=== PATIENT | male | born 1940 | race Caucasian/White ===

== ENCOUNTER 2020-01-03 09:49 | Outpatient (CLI) | payer OTHER, MEDICARE, SELFPAY ==
[2020-01-03 13:08] LABS: Basophils # 0.1 10^3/uL (0.0-0.1); Basophils % 0.5 %; Eosinophils # 0.4 10^3/uL (0.0-0.8); Eosinophils % 4.2 %; Hematocrit 43.5 % (42.0-52.0); Hemoglobin 14.6 g/dL (11.7-16.6); Lymphocytes # 4.1 10^3/uL (0.8-4.8); Lymphocytes % 40.4 %; Mean Corpuscular HGB Conc 33.6 g/dL (30.0-36.0); Mean Corpuscular Hemoglobin 32.4 pg (28.0-34.0); Mean Corpuscular Volume 96.5 fL (80-94); Mean Platelet Volume 14.3 fL (7.4-10.4); Monocytes # 0.9 10^3/uL (0.2-0.9); Monocytes % 9.2 %; Neutrophils # 4.6 10^3/uL (1.8-7.7); Neutrophils % 45.4 %; Nucleated Red Blood Cells % 0 %; Platelet Count 68 10^3/cmm (130-400); Red Blood Count 4.51 10^6/uL (4.1-5.3); Red Cell Distribution Width 12.5 % (12.1-15.1)
[2020-01-03 13:30] LABS: LAB Peripheral Smear Sent for Review
[2020-01-03 13:40] LABS: Alanine Aminotransferase 18 U/L (0-41); Albumin Level 3.7 g/dL (3.5-5.2); Alkaline Phosphatase 119 IU/L (40-130); Anion Gap 17.6 (5-19); Aspartate Amino Transferase 19 U/L (0-40); Blood Urea Nitrogen 22 mg/dL (8-23); Calcium 9.5 mg/dL (8.5-10.5); Carbon Dioxide 23 mmol/L (22-29); Chloride 103 mmol/L (98-107); Globulin 3.4 g/dL (1.3-4.6); Glucose 312 mg/dL (65-115); Lactate Dehydrogenase 143 U/L (135-225); Potassium 4.6 mmol/L (3.5-5.1); Sodium 139 mmol/L (136-145); Total Bilirubin 0.2 mg/dL (0.15-1.2); Total Protein 7.1 g/dL (6.6-8.7)
[2020-01-03 14:17] LABS: Erythrocyte Sedimentation Rate 16 mm/hr (0-10)
--- NOTE | 2020-01-03 16:18 | ONC CON_ITS ---
Dr. Dixon New Patient Note Patient: Sumit Abel Unit #: [id number]: 1940 Dicatated By: Robin Dixon M.D.Date of Visit: Jan 03, 2020 Onc MED New Patient/Consult Referring Physician: Chief Complaint: Lymphoma/autoimmunue thrombocytopenia. History of Present Illness: This is an 79 year-old man with stage IV low-grade non-Hodgkin's lymphoma, initially diagnosed in 1998. I did not receive complete records regarding the specific histologic subtype of the lymphoma. 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 The lymphoma has been in clinical remission following chemotherapy, though he continued to have problems with the thrombocytopenia, which was resistant to standard therapies and to splenectomy. Eventually, he did respond to treatment with danazol. I had seen him initially in May of 2011. His platelet count was moderately decreased, though adequate, at 72,000. Restaging PET/CT on 07/04/2011 showed minimally increased activity in scattered, small mediastinal lymph nodes, maximum SUV 4.6, consistent with low-grade lymphoma versus reactive adenopathy,. Activity in cervical lymph nodes was felt to be probably reactive. His repeat bone marrow aspiration/biopsy on 07/09/2011 showed normal cellular bone marrow at 60% cellularity. There were normal to mildly increased megakaryocytes. There were no overt dysplastic changes. There was no evidence of lymphoma or other infiltrative process in the bone marrow. The chromosome analysis was normal. With those findings, he continued observation/expectant management. As of his visit in November 2012 he appeared stable clinically. Platelet count at that time was 97,000. He then failed to return for further follow-up. His other medical illnesses include hypertension, hyperlipidemia, and type 2 diabetes. He has associated peripheral neuropathy. 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 He has been followed by Dr. Ocasio. He has not been feeling as good generally. He has not had good energy. In fact recently he has complained of having deep fatigue and weakness. Despite that, he stays busy doing things. His ECOG score is 1. He has good appetite and his weight has been stable. He has not had fever. He was having some night sweating last summer, but none since then. He has had blurry vision and dry eyes, and he also complains of having dry mouth and throat. He has some sinus drainage. He tends to have nosebleeds during the winter and lately he has been having them at least 3-4 times a week, usually on the right side. They are sometimes prolonged. He also has some bruising, which comes and goes. He does not complain of cough. He does have some shortness of breath. Last week he had some sharp pain across his chest. He occasionally has heaviness. He has occasional acid reflux. He has had some ongoing problems with his bowel movements, but he has not been aware of any blood in the stool. His urination is gone from a steady stream to starting and stopping. He also complains that it is hard to get started. He has not had dysuria or hematuria. He has aching in his shoulders and arms and in his hips. He also has had leg cramps and/or leg pain at night. He has neuropathy in his feet and a little bit in his hands. He does not complain of headache. He sometimes has difficulty with balance. He complains that he cannot remember things. Past Medical History: His medical history includes autoimmune thrombocytopenia, benign prostatic hypertrophy, chronic kidney disease, diabetes type II, hyperlipidemia, hypertension, low-grade non-Hodgkin's lymphoma, peripheral neuropathy, superficial bladder cancer, and pulmonary histoplasmosis in 1964. Past Surgical History: His surgical/procedural history includes bilateral cataract excisions, bone marrow aspiration and biopsy x 3, cholecystectomy, rotator cuff repair on the right, tonsillectomy, cystoscopy/TURBT for low-grade papillary cancer in 2012, and splenectomy in 2002. Medications: amLODIPine Besylate 1 Tablet (of 10 mg) Oral daily, Folic Acid 1 (1 mg) Tablet Oral daily, Garlic 1 Tablet Oral daily, Lisinopril 1 (40 mg) Tablet Oral daily, Magnesium 1 (250 mg) Tablet Oral daily, Neurontin 1 (400 mg) Capsule Oral t.i.d., NovoLIN 70/30 (70-30 %) Subcutaneous Take as Directed, Super B Complex Maxi 1 Tablet Oral daily, Tamsulosin HCl 1 Capsule (of 0.4 mg) Oral at bedtime, Taurine 1 Capsule (of 500 mg) Oral daily, Triamcinolone Acetonide 1 (0.5 %) Cream Topical daily, Vitamin D3 1 (400 Units) Tablet Oral daily Allergies: CT Dye and MetFORMIN HCl. Social History: Mr. Abel is . He had previously smoked 1 pack of cigarettes daily, but he quit in 1964. He had social alcohol use in the past. He quit drinking about the same time. Family History: Father in the truck accident at age 25. Mother at age 67 with heart disease and tick fever. A brother and a half sister both had colon cancer. Review Of Symptoms: Constitutional - He says his energy has been low ever since he had treatment for the lymphoma. He indicates that he has been busy doing things, but recently he has had deep fatigue and weakness. His appetite has been good. His weight is stable. He has not had fever. He was having night sweating last summer, but none since then. ECOG score is 1, Eyes - His vision has been getting blurry and he complains that his eyes are dry, ENMT - He has hearing loss and tinnitus. No sinus congestion/drainage. He has frequent nosebleeds in the winter. It is mainly from the right side. He has dry mouth and throat. He has some difficulty swallowing, Hematologic/Lymphatic - He has some bruising, which comes and goes, Respiratory - He has some shortness of breath. No cough. He had sharp pain across his chest last week. No hemoptysis, Cardiovascular - No angina pain. No palpitations, Gastrointestinal - No nausea or vomiting. He occasionally has heartburn. He stools tend to start out hard and then sometimes get runny. No blood in the stool or black stools, Genitourinary (M) - His urinary stream has gone from steady down to where he starts and stops, and it is hard to get started. He has no dysuria or hematuria and no urgency/incontinence, Musculoskeletal - He has aching in his shoulders/arms and in his hips. It is pretty constant. He sometimes has leg cramps and or leg pain at night, Integumentary - No skin complications, Neurologic - No headache. He sometimes has difficulty with balance. He has neuropathy in his feet and to a lesser extent in his hands, Psychiatric - No anxiety or depression. He does not sleep well at night. Vital Signs: Performed on Jan 03, 2020 10:58: 6, 27.31, 2.02 sq.m, 69.50 in, 96 %, 64 /min, 22 /min, 155/57 mm(hg) (HIGH), 98.1 F (LOW), 187.6 lbs (LOW), and Performed on Nov 25, 2012 11:39: 0. Physical Examination: Constitutional - He does not appear acutely ill, Eyes - Sclerae nonicteric. Conjunctivae clear, ENMT - No lesions noted in the oral cavity. There is some mild irritation noted in the nasal mucosa on the right side, Neck - No mass or thyromegaly, Hematologic/Lymphatic - No cervical, clavicular, or axillary adenopathy, Respiratory - Lungs are clear with good air movement bilaterally, Cardiovascular - Heart rythm is regular. There is a II/ systolic murmur. There is no gallop or rub noted, Abdomen - Soft and non-tender. Liver is not enlarged. There is no abdominal mass or ascites noted. There is no inguinal adenopathy, Back/Spine - No spine or CVA tenderness noted, Extremities - There are venous stasis changes bilaterally, but there is no edema. Dorsalis pedis and posterior tibial pulses are palpable bilaterally. There is nail discoloration of the left third and fourth toes, Integumentary - There are few scattered purpuric lesions. There are no petechiae noted. There are no suspicious skin lesions noted, Neurologic - No focal neurologic deficits noted. Lab/Imaging: [facility]2019 included CBC showing hemoglobin 14.5 g, white blood cell count 10,000, and platelet count 57,000. The reported differential included 41% neutrophils, 42% lymphocytes, 10% monocytes, and 7% eosinophils. Comprehensive metabolic profile showed elevated BUN and creatinine at 22 and 1.32 mg/dL. The bilirubin and liver enzymes were normal. Impression: 1. Patient with low-grade non-Hodgkin's lymphoma, stage IV, initially diagnosed in 1998. The lymphoma has been in clinical remission following chemotherapy treatment. 2. 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 Eventually did show some response to treatment with danazol. 3. He has since then been followed on observation/expectant management with intermittent, moderately severe thrombocytopenia. 4. He has had epistaxis, but I suspect this is most likely due to local issues as opposed to an underlying bleeding tendency. 5. He has symptoms suggestive of other autoimmune disease, including Sjogren's syndrome and Raynaud's disease. 6. He underwent TURBT for superficial bladder cancer in 2012. His other medical illnesses include: 7. Hypertension. 8. Hyperlipidemia. 9. Type 2 diabetes with peripheral neuropathy. 10. Chronic kidney disease. 11. Benign prostatic hypertrophy. 12. He has history of pulmonary histoplasmosis. Plan: I reviewed his recent laboratory results and we discussed the clinical implications. He continues to have moderately severe thrombocytopenia, but similar to his previous studies. I think it is unlikely that he has any bleeding tendency associated with this. Unless it gets significantly worse, we can continue to follow him on observation/expectant management. However, I will obtain additional laboratory studies today to include CBC, comprehensive metabolic profile, sed rate and RUSTAM profile, and LDH level, and I will review the blood smear. He will have further evaluation as indicated. Signed By: Robin Dixon M.D. <<Signature on File>>
[2020-01-04 13:37] LABS: Anti-Double Strand DNA AB <1 IU/mL; Jo-1 Antibody <1.0 NEG AI (<1.0 NEG); SM/RNP Antibodies <1.0 NEG AI (<1.0 NEG); SS-B/LA IGG <1.0 NEG AI (<1.0 NEG); Scleroderma Ab(Scl-70) Ab <1.0 NEG AI (<1.0 NEG); Ss-A/Ro Igg <1.0 NEG AI (<1.0 NEG)
[2020-01-05 12:01] LABS: Anti-Nuclear Antibody Screen POSITIVE (NEGATIVE)
== END 2020-01-03 09:50 | disposition home or self-care (01) ==
PROVIDERS: Family Provider Family Medicine; PCP Family Medicine; Visit Provider Internal Medicine Medical Oncology
DX: D69.3 Immune thrombocytopenic purpura (principal); Z85.72 Personal history of non-Hodgkin lymphomas; E78.5 Hyperlipidemia, unspecified; E11.42 Type 2 diabetes mellitus with diabetic polyneuropathy; E11.22 Type 2 diabetes mellitus with diabetic chronic kidney disease; I12.9 Hypertensive chronic kidney disease with stage 1 through stage 4 chronic kidney disease, or unspecified chronic kidney disease; N18.9 Chronic kidney disease, unspecified; N40.1 Benign prostatic hyperplasia with lower urinary tract symptoms; R39.11 Hesitancy of micturition; Z85.51 Personal history of malignant neoplasm of bladder; Z92.21 Personal history of antineoplastic chemotherapy; Z90.81 Acquired absence of spleen; Z87.891 Personal history of nicotine dependence
CPT/HCPCS: 80053; 83615; 85025; 85651; 86038; 86225; 86235; 99205

== ENCOUNTER 2021-04-04 11:10 | Emergency (ER) | payer OTHER, MEDICARE, SELFPAY ==
[2021-04-04 11:35] VITALS: BP 146/69; PULSE 124; RESP 18; TEMP 36.6; O2SAT 95; BMI 26.6
[2021-04-04 12:51] VITALS: BP 149/73; PULSE 58; RESP 18; O2SAT 98
--- NOTE | 2021-04-04 13:09 | ED_ITS ---
HPI - General Adult General: Chief complaint: General Medical Stated complaint: Sent from [place] for CT Scan Time Seen by Provider: 04/04/21 12:57 Source: patient Mode of arrival: ambulatory Limitations: no limitations History of Present Illness: HPI narrative: Patient is a nice 80-year-old male who presents to ED today at the request of the [place] for evaluation of right flank and right sided back pain. Patient was told they think it might be my kidneys . Patient tells me he has a history of BPH and states if he does not take his prostate medication then he experiences difficulty with urination. He does not complain of any decreased urination, dysuria, hematuria. He states pain has been present over the past month. Pain seems to be worse with movement. He does not have any nausea or vomiting. No fevers. Patient is having normal bowel movements. Onset (ago): week(s) Location: back, abdomen and right Severity: moderate Quality: dull and constant Pain Consistency: constant Relieving factors: none Exacerbating factors: movement Associated symptoms: Reports no associated symptoms; Deny chest pain, dyspnea, headache(s), malaise, nausea, rash or vomiting Treatments prior to arrival: none Review of Systems Const: Denies: fever(s), chills, body aches, fatigue or malaise Card: Denies: chest pain Resp: Denies: dyspnea GI: Reports: abdominal pain; Denies: nausea, vomiting or diarrhea : Reports: flank pain; Denies: difficulty urinating, dysuria or urinary incontinence Musc: Reports: back pain; Denies: neck pain, extremity pain, joint pain or joint swelling Skin/Breast: Denies: rash Neuro: Denies: headache(s), numbness in extremities, weakness in extremities, sensory changes, difficulty walking or dizziness Physical Exam Const: COMMON NORMALS: no acute distress, patient oriented x3, no limitations and alert GENERAL APPEARANCE: cooperative ORIENTATION/CONSCIOUSNESS: Yes awake, Yes oriented to person, Yes oriented to place and Yes oriented to time Resp: COMMON NORMALS: normal respiratory effort and clear to auscultation bilaterally AUSCULTATION: clear to auscultation bilaterally Cardio: COMMON NORMALS: regular rate and regular rhythm RATE: regular rate RHYTHM: regular rhythm GI: COMMON NORMALS: Normal to inspection, nondistended, normoactive bowel sounds present, Soft to palpation, non-tender, No hepatosplenomegaly present and no masses INSPECTION: Yes normal to inspection AUSCULTATION: Yes normoactive bowel sounds PALPATION: Yes Soft to palpation, No Tenderness to palpation present (GI) and Yes No hepatosplenomegaly present : BLADDER/KIDNEY EXAM: Yes CVA tenderness (TTP inferior CVA throughout R back; no midline tenderness ) on the right Back/Pelvis: COMMON NORMALS: thoracic and lumbar spine normal to inspection, no thoracic nor lumbar tenderness, thoraco-lumbar ROM normal and straight leg raise negative bilaterally GENERAL BACK: Yes CVA tenderness (TTP inferior CVA throughout R back; no midline tenderness ) THORACIC SPINE/UPPER BACK: Yes normal to inspection and Yes thoracic ROM normal LUMBAR SPINE/LOWER BACK: Yes normal to inspection and Yes lumbar ROM normal PELVIS: Yes buttocks normal Extremity: COMMON NORMALS: normal to inspection and full ROM GENERAL: Yes normal exam except as noted Neuro: COMMON NORMALS: patient oriented x3, moves all extremities, no focal motor deficits and no sensory deficits noted SENSORIUM/ORIENTATION: Yes alert, Yes oriented to person, Yes oriented to place and Yes oriented to time Skin: COMMON NORMALS: no rashes or lesions noted GENERAL SKIN EXAM: no rashes or lesions noted TRAUMA: no lacerations or abrasions Course Vital Signs: Vital signs: Vital Signs Temperature 97.9 F 04/04/21 11:35 Pulse Rate 60 04/04/21 16:28 Respiratory Rate 18 04/04/21 12:51 Blood Pressure 149/73 04/04/21 12:51 Pulse Oximetry 97 04/04/21 16:28 MDM - General Adult [facility] Narrative: Medical decision making narrative: Patient is here with complaints of right-sided back pain over the past month. He does not complain of abdominal pain. His vital signs are stable. His labs are non-concerning. He has chronic thrombocytopenia. UA is clean. Kidney functions are normal. CT scan shows some mild enlargement to lymph nodes that radiologist stated could be an early recurrence of his lymphoma. We will have CM set him up with an appointment with Dr. Dixon who he has seen previously. Patient also had an enlarged appendix without any surrounding inflammatory changes to suggest acute appendicitis. Patient clinically has absolutely zero right lower quadrant abdominal pain. His complaint today has been present for the past month. Clinically I have no suspicion for an acute appendicitis nonetheless patient was made aware of the findings and agrees to return for the onset of RLQ pain or fevers. He will otherwise follow up with the [place]. Lab Data: Labs: Lab Results 04/04/21 04/04/21 04/04/21 Range/Units 14:13 14:13 14:39 WBC 11.8 H (4.0-10.0) 10^3/ uL RBC 4.76 (4.1-5.3) 10^6/u L Hgb 15.0 (11.7-16.6) g/dL Hct 45.3 (42.0-52.0) % MCV 95.2 H (80-94) fL MCH 31.5 (28.0-34.0) pg MCHC 33.1 (30.0-36.0) g/dL RDW 13.0 (12.1-15.1) % Plt Count 56 L (130-400) 10^3/c mm MPV 17.0 H (7.4-10.4) fL Neut % (Auto) 41.1 % Lymph % (Auto) 44.6 % [place] % (Auto) 8.1 % Eos % (Auto) 5.3 % Baso % (Auto) 0.7 % Neut # (Auto) 4.86 (1.8-7.7) 10^3/u L Lymph # (Auto) 5.3 H (0.8-4.8) 10^3/u L [place] # (Auto) 1.0 H (0.2-0.9) 10^3/u L Eos # (Auto) 0.6 (0.0-0.8) 10^3/u L Baso # (Auto) 0.1 (0.0-0.1) 10^3/u L Nucleated RBC % (a uto) 0 % Nucleated RBCs # 0.0 /100WBC Sodium 139 (136-145) mmol/L Potassium 5.1 (3.5-5.1) mmol/L Chloride 104 (98-107) mmol/L Carbon Dioxide 28 (22-29) mmol/L Anion Gap 12.1 (5-19) BUN 18 (8-23) mg/dL Creatinine 1.2 (0.7-1.2) mg/dL GFR Calculation Not Reportable Glucose 65 (65-115) mg/dL POC Glucose 62 L (70-110) mg/dL Calculated Osmolal ity 288 (285-295) mOsm/k g Calcium 9.1 (8.5-10.5) mg/dL Total Bilirubin 0.3 (0.15-1.2) mg/dL AST 30 (0-40) U/L ALT 19 (0-41) U/L Alkaline Phosphata se 114 (40-130) IU/L Total Protein 8.2 (6.6-8.7) g/dL Albumin 4.3 (3.5-5.2) g/dL Globulin 3.9 (1.3-4.6) g/dL Urine Color (Yellow) Urine Appearance (CLEAR) Urine pH (5-7) Ur Specific Gravit y (1.005-1.030) Urine Protein (Negative) Urine Glucose (UA) (Normal) Urine Ketones (Negative) Urine Blood (Negative) Urine Nitrate (Negative) Urine Bilirubin (Negative) Urine Urobilinogen (Negative) mg/dL Ur Leukocyte Charline ase (Negative) 04/04/21 Range/Units 15:00 WBC (4.0-10.0) 10^3/ uL RBC (4.1-5.3) 10^6/u L Hgb (11.7-16.6) g/dL Hct (42.0-52.0) % MCV (80-94) fL MCH (28.0-34.0) pg MCHC (30.0-36.0) g/dL RDW (12.1-15.1) % Plt Count (130-400) 10^3/c mm MPV (7.4-10.4) fL Neut % (Auto) % Lymph % (Auto) % [place] % (Auto) % Eos % (Auto) % Baso % (Auto) % Neut # (Auto) (1.8-7.7) 10^3/u L Lymph # (Auto) (0.8-4.8) 10^3/u L [place] # (Auto) (0.2-0.9) 10^3/u L Eos # (Auto) (0.0-0.8) 10^3/u L Baso # (Auto) (0.0-0.1) 10^3/u L Nucleated RBC % (a uto) % Nucleated RBCs # /100WBC Sodium (136-145) mmol/L Potassium (3.5-5.1) mmol/L Chloride (98-107) mmol/L Carbon Dioxide (22-29) mmol/L Anion Gap (5-19) BUN (8-23) mg/dL Creatinine (0.7-1.2) mg/dL GFR Calculation Glucose (65-115) mg/dL POC Glucose (70-110) mg/dL Calculated Osmolal ity (285-295) mOsm/k g Calcium (8.5-10.5) mg/dL Total Bilirubin (0.15-1.2) mg/dL AST (0-40) U/L ALT (0-41) U/L Alkaline Phosphata se (40-130) IU/L Total Protein (6.6-8.7) g/dL Albumin (3.5-5.2) g/dL Globulin (1.3-4.6) g/dL Urine Color Yellow (Yellow) Urine Appearance Clear (CLEAR) Urine pH 5 (5-7) Ur Specific Gravit y 1.015 (1.005-1.030) Urine Protein Neg (Negative) Urine Glucose (UA) Norm (Normal) Urine Ketones Negative (Negative) Urine Blood Neg (Negative) Urine Nitrate Negative (Negative) Urine Bilirubin Neg (Negative) Urine Urobilinogen Norm (Negative) mg/dL Ur Leukocyte Charline ase Negative (Negative) Imaging Data^: CT Abd/Pel: Radiologist's impression: [place] [address] CT Scan Report Signed Patient: Sumit Abel Unit #: [id number] : 1940 Age/Sex: 80 / M ADM Date: 04/04/21 Loc: ER Room/Bed: Attending Dr: Ordering Provider/Ordering MD: Mary Franco Date of Service: 04/04/21 Procedure(s): CT abdomen pelvis w con* [id number] Accession Number(s): [id number] Report Number: [id number] WS: [id number] CT ABDOMEN AND PELVIS WITH CONTRAST HISTORY: Diffuse R sided flank/back pains TECHNIQUE: Imaging performed of the abdomen and pelvis with IV contrast. Single phase imaging of the abdomen. Coronal and sagittal reformats are submitted. All CT scans at [facility] use at least one of these dose optimization techniques: automated exposure control; mA and/or kV adjustment per patient size (includes targeted exams where dose is matched to clinical indication); or iterative reconstruction. IV CONTRAST: Visipaque 320; 95 mL IV. Oral contrast: No DLP: 1613.52 mGy.cm COMPARISON: 08/26/2013 Lower thorax: Mild pleural thickening at the RIGHT lung base focal triangular shaped pleural thickening in the RIGHT lower lobe. Heart is normal size. Small hiatal hernia. Liver/biliary system: Normal size with no intrahepatic dilatation. Gallbladder: Normal. No gallstones or wall thickening. No pericholecystic fluid. Pancreas: Normal size pancreas and pancreatic duct. No adjacent inflammation. Spleen: Status post splenectomy. Adrenal glands: Normal. Right kidney: Mild perinephric stranding. 1.2 cm cyst in the upper pole. There are a few is additional hypodensities which are too small to characterize. No obstruction. Left kidney: Mild perinephric stranding. 2 small to characterize hypodensity in the mid kidney is probably a small cyst. No obstruction or mass. Aorta: Mild atherosclerosis with no aneurysm. Mild atherosclerosis and intimal thickening within the mesenteric arteries. Lymphadenopathy: There are several small mesenteric lymph nodes. The largest lymph node is 10 mm in the RIGHT abdomen anterior to the kidney. There are small retroperitoneal lymph nodes and aortocaval lymph nodes and RIGHT lower quadrant lymph nodes. There is also mild mesenteric panniculitis. Free fluid: None. GI tract: Nondistended stomach. Negative small bowel. Mild constipation. The appendix is dilated without adjacent inflammation. Appendix measures 10 mm in diameter. Distal colonic diverticulosis without acute diverticulitis. Abdominal wall: Unremarkable abdominal wall. No hernia. Pelvis: No free fluid or adenopathy within the pelvis. Mild prostate gland enlargement. No enlarged lymph nodes. Bones: Moderate spondylitic changes throughout the lumbar spine. CT/CT abdomen pelvis w con* [id number] IMPRESSION: 1. Enlarged appendix without adjacent inflammation. No abscess or perforation. Early changes of appendicitis should be considered. 2. No renal obstruction. 3. Distal colonic diverticulosis without acute diverticulitis. 4. Prior cholecystectomy. 5. Mesenteric and retroperitoneal small lymph nodes. These lymph nodes are very slightly greater in size as compared to 2012 with the largest measuring 10 mm and additional mesenteric panniculitis. Mesenteric misting can be seen with low-grade lymphomas. Possible early recurrence of lymphoma should be considered. Notified ARABELLA Nguyen at 04/04/2021 3:45 PM. Dictated By: Vita Todd DO Signed By: Vita Todd DO Signed Date/Time: 04/04/21 1555 DD/ [id number] Discharge Plan Discharge Patient Disposition: Home Clinical Impression: Acute right-sided back pain Qualifiers: Back pain location: low back pain Sciatica presence: without sciatica Qualified Code(s): M54.5 - Low back pain Condition: Stable Prescriptions: No Action tamsulosin 0.4 mg Capsule 0.4 mg PO DAILY RF: 0 amlodipine 10 mg Tablet 10 mg PO BID RF: 0 gabapentin 300 mg Capsule 300 mg PO DAILY RF: 0 lisinopril 40 mg Tablet 40 mg PO DAILY RF: 0 triamcinolone acetonide 0.05 % Ointment 1 applic TOPICAL BID RF: 0 cholecalciferol (vitamin D3) 50 mcg (2,000 unit) Tablet 50 mcg PO DAILY RF: 0 Fish Oil 1,000 mg (120 mg-180 mg) Capsule 1 cap PO BID RF: 0 Novolin 70/30 U-100 Insulin See Rx Instructions .ROUTE .COMPLEX RF: 0 Discharge Orders: Discharge ED (Routine); Ordered 04/04/21 Ordered By: Mary Franco Referrals: Marisol Morse DO [Primary Care Provider] - Activity Restrictions/Additional Instructions: As we discussed some of the lymph nodes on your CT abdomen/pelvic exam were larger than when compared in 2013. The radiologist stated that this could be an early recurrence of your lymphoma. We will have case management set you up to see Dr. Dixon for further evaluation. Again as we discussed the radiologist stated your appendix was larger than normal. There was no surrounding inflammation or signs of infection. Clinically I do not have a concern for acute appendicitis however you need to return to the emergency department for any right lower abdominal pain, fevers, nausea/vomiting or any other concerns you may have. Coding Level of Care Code ED It Operations Manager for Chg Fwd Exam Comprehensive
--- NOTE | 2021-04-04 13:34 | CT_ITS ---
WS: [id number] CT ABDOMEN AND PELVIS WITH CONTRAST HISTORY: Diffuse R sided flank/back pains TECHNIQUE: Imaging performed of the abdomen and pelvis with IV contrast. Single phase imaging of the abdomen. Coronal and sagittal reformats are submitted. All CT scans at [facility] use at least one of these dose optimization techniques: automated exposure control; mA and/or kV adjustment per patient size (includes targeted exams where dose is matched to clinical indication); or iterativ e reconstruction. IV CONTRAST: Visipaque 320; 95 mL IV. Oral contrast: No DLP: 1613.52 mGy.cm COMPARISON: 08/26/2013 Lower thorax: Mild pleural thickening at the RIGHT lung base focal triangular shaped pleural thickeni ng in the RIGHT lower lobe. Heart is normal size. Small hiatal hernia. Liver/biliary system: Normal size with no intrahepatic dilatation. Gallbladder: Normal. No gallstones or wall thickening. No pericholecystic fluid. Pancreas: Normal size pancreas and pancreatic duct. No adjacent inflammation. Spleen: Status post splenectomy. Adrenal glands: Normal. Right kidney: Mild perinephric stranding. 1.2 cm cyst in the upper pole. There are a few is additiona l hypodensities which are too small to characterize. No obstruction. Left kidney: Mild perinephric stranding. 2 small to characterize hypodensity in the mid kidney is pro bably a small cyst. No obstruction or mass. Aorta: Mild atherosclerosis with no aneurysm. Mild atherosclerosis and intimal thickening within the mesenteric arteries. Lymphadenopathy: There are several small mesenteric lymph nodes. The largest lymph node is 10 mm in t he RIGHT abdomen anterior to the kidney. There are small retroperitoneal lymph nodes and aortocaval l ymph nodes and RIGHT lower quadrant lymph nodes. There is also mild mesenteric panniculitis. Free fluid: None. GI tract: Nondistended stomach. Negative small bowel. Mild constipation. The appendix is dilated with out adjacent inflammation. Appendix measures 10 mm in diameter. Distal colonic diverticulosis without acute diverticulitis. Abdominal wall: Unremarkable abdominal wall. No hernia. Pelvis: No free fluid or adenopathy within the pelvis. Mild prostate gland enlargement. No enlarged l ymph nodes. Bones: Moderate spondylitic changes throughout the lumbar spine. CT/CT abdomen pelvis w con* [id number] IMPRESSION: 1. Enlarged appendix without adjacent inflammation. No abscess or perforation. Early changes of appendicitis should be considered. 2. No renal obstruction. 3. Distal colonic diverticulosis without acute diverticulitis. 4. Prior cholecystectomy. 5. Mesenteric and retroperitoneal small lymph nodes. These lymph nodes are corry y slightly greater in size as compared to 2013 with the largest measuring 10 mm and additional mesenteric panniculitis. Mesenteric misting can be seen with lo w-grade lymphomas. Possible early recurrence of lymphoma should be considered. Notified ARABELLA Nguyen at 04/04/2021 3:45 PM.
[2021-04-04 14:43] LABS: Glucose Point of Care 62 mg/dL (70-110)
[2021-04-04 14:45] LABS: Basophils # 0.1 10^3/uL (0.0-0.1); Basophils % 0.7 %; Eosinophils # 0.6 10^3/uL (0.0-0.8); Eosinophils % 5.3 %; Hematocrit 45.3 % (42.0-52.0); Lymphocytes # 5.3 10^3/uL (0.8-4.8); Lymphocytes % 44.6 %; Mean Corpuscular HGB Conc 33.1 g/dL (30.0-36.0); Mean Corpuscular Hemoglobin 31.5 pg (28.0-34.0); Mean Corpuscular Volume 95.2 fL (80-94); Monocytes % 8.1 %; Neutrophils # 4.86 10^3/uL (1.8-7.7); Neutrophils % 41.1 %; Nucleated Red Blood Cells % 0 %; Platelet Count 56 10^3/cmm (130-400); Red Blood Count 4.76 10^6/uL (4.1-5.3); White Blood Count 11.8 10^3/uL (4.0-10.0)
[2021-04-04] MEDS: dextrose 50% syringe 50 mL 25 ML IVP (15:04)
[2021-04-04 15:05] LABS: Alanine Aminotransferase 19 U/L (0-41); Albumin Level 4.3 g/dL (3.5-5.2); Alkaline Phosphatase 114 IU/L (40-130); Blood Urea Nitrogen 18 mg/dL (8-23); Calcium 9.1 mg/dL (8.5-10.5); Carbon Dioxide 28 mmol/L (22-29); Chloride 104 mmol/L (98-107); Globulin 3.9 g/dL (1.3-4.6); Glucose 65 mg/dL (65-115); Osmolality Calculated 288 mOsm/kg (285-295); Sodium 139 mmol/L (136-145); Total Bilirubin 0.3 mg/dL (0.15-1.2); Total Protein 8.2 g/dL (6.6-8.7)
[2021-04-04] MEDS: hydrocortisone 100 mg/2 mL SDV IVP (15:05)
[2021-04-04] MEDS: diphenhydrAMINE 50 mg/mL SDV 1mL IVP (15:05)
[2021-04-04 15:19] LABS: Anion Gap 12.1 (5-19); Aspartate Amino Transferase 30 U/L (0-40); Potassium 5.1 mmol/L (3.5-5.1)
[2021-04-04] MEDS: iodixanol 320 mg/mL 100mL Btl IV (15:23)
[2021-04-04 15:32] LABS: Add Urine Microscopic? NO; Charge for UA Resulting for Rev
[2021-04-04 15:33] LABS: Slide Review Slide Review Perform
[2021-04-04 15:34] LABS: Bilirubin Urine Neg (Negative); Blood Urine Neg (Negative); Glucose Urine UA Norm (Normal); Ketones Urine Negative (Negative); Leukocyte Esterase Urine Negative (Negative); Nitrate Urine Negative (Negative); Protein Urine Neg (Negative); Specific Gravity, Urine 1.015 (1.005-1.030); Urine Appearance Clear (CLEAR); Urine Color Yellow (Yellow); Urobilinogen Urine Norm (Negative); pH Urine 5 (5-7)
--- NOTE | 2021-04-04 16:03 | PC.NURSE ---
Upon rounding after pt returned from CT nurse noticed blood near IV site. IV is intact and asymptomatic, however, there is a small skin tear from veniguard. area cleaned and dressed.
[2021-04-04 16:28] VITALS: PULSE 60; O2SAT 97
--- NOTE | 2021-04-05 14:28 | DCPLANNER ---
Addendum entered by June Jha 06/04/21 14:55: Patient had follow up appointment scheduled for 05.09.21 - patient did attend appointment. Original Note: talent acquisition program manager had message to schedule a follow up appointment for patient with Dr. Dixon. talent acquisition program manager called Armida Casillas, sports marketing coordinator for [facility], gave her the patients information. Patient has [facility] insurance, onsite case manager emailed patients information to the [facility] so that the authorization process could be started.
== END 2021-04-04 16:28 | disposition home or self-care (01) ==
PROVIDERS: Emergency Provider Physician Assistant; PCP Family Medicine
DX: M54.5 Low back pain (principal); Z79.4 Long term (current) use of insulin
CPT/HCPCS: 36416; 74177; 80053; 81003; 82962; 85025; 96374; 96375; 99283; J1200; J1720; Q9967

== ENCOUNTER 2021-05-09 08:01 | Outpatient (CLI) | payer OTHER, MEDICARE, SELFPAY ==
[2021-05-09 09:50] LABS: Basophils # 0.1 10^3/uL (0.0-0.1); Basophils % 0.6 %; Eosinophils # 0.4 10^3/uL (0.0-0.8); Hematocrit 41.9 % (42.0-52.0); Hemoglobin 13.9 g/dL (11.7-16.6); Lymphocytes # 3.5 10^3/uL (0.8-4.8); Lymphocytes % 38.6 %; Mean Corpuscular HGB Conc 33.2 g/dL (30.0-36.0); Mean Corpuscular Hemoglobin 31.4 pg (28.0-34.0); Mean Corpuscular Volume 94.8 fL (80-94); Mean Platelet Volume 12.6 fL (7.4-10.4); Monocytes # 0.8 10^3/uL (0.2-0.9); Monocytes % 9.4 %; Neutrophils # 4.23 10^3/uL (1.8-7.7); Neutrophils % 47.2 %; Nucleated Red Blood Cells % 0 %; Platelet Count 40 10^3/cmm (130-400); Red Blood Count 4.42 10^6/uL (4.1-5.3); Red Cell Distribution Width 12.8 % (12.1-15.1)
[2021-05-09 09:58] LABS: LAB Peripheral Smear Sent for Review
[2021-05-09 10:52] LABS: Alanine Aminotransferase 15 U/L (0-41); Albumin Level 3.8 g/dL (3.5-5.2); Alkaline Phosphatase 99 IU/L (40-130); Anion Gap 12.1 (5-19); Aspartate Amino Transferase 21 U/L (0-40); Blood Urea Nitrogen 19 mg/dL (8-23); Calcium 8.7 mg/dL (8.5-10.5); Carbon Dioxide 27 mmol/L (22-29); Chloride 106 mmol/L (98-107); Globulin 3.5 g/dL (1.3-4.6); Glucose 206 mg/dL (65-115); Lactate Dehydrogenase 136 U/L (135-225); Osmolality Calculated 298 mOsm/kg (285-295); Potassium 5.1 mmol/L (3.5-5.1); Sodium 140 mmol/L (136-145); Thyroid Stimulating Hormone 1.74 uIU/mL (0.27-4.20); Total Bilirubin 0.4 mg/dL (0.15-1.2); Total Protein 7.3 g/dL (6.6-8.7); Vitamin B12 443 pg/mL (232-1245)
[2021-05-09 11:21] LABS: Erythrocyte Sedimentation Rate 35 mm/hr (0-10)
--- NOTE | 2021-05-09 11:45 | ONC FU_ITS ---
Dr. Dixon Patient Follow-Up Note Patient: Sumit Abel Unit #: [id number]: [id number] Dicatated By: Robin Dixon M.D.Date of Visit:May 09, 2021 Onc Med Follow-up/Prog Note Chief Complaint: Lymphoma/autoimmunue thrombocytopenia. History of Present Illness: This is an 80 year-old man with stage IV low-grade non-Hodgkin's lymphoma, initially diagnosed in 1998. I did not receive complete records regarding the specific histologic subtype of the lymphoma. 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 The lymphoma had been in clinical remission following chemotherapy, though he continued to have problems with the thrombocytopenia, which was resistant to standard therapies and to splenectomy. Eventually, he did respond to treatment with danazol. I had seen him initially in May of 2011. His platelet count was moderately decreased, though adequate, at 72,000. Restaging PET/CT on 07/04/2011 showed minimally increased activity in scattered, small mediastinal lymph nodes, maximum SUV 4.6, consistent with low-grade lymphoma versus reactive adenopathy,. Activity in cervical lymph nodes was felt to be probably reactive. His repeat bone marrow aspiration/biopsy on 07/09/2011 showed normal cellular bone marrow at 60% cellularity. There were normal to mildly increased megakaryocytes. There were no overt dysplastic changes. There was no evidence of lymphoma or other infiltrative process in the bone marrow. The chromosome analysis was normal. With those findings, he continued observation/expectant management. As of his visit in November 2012 he appeared stable clinically. Platelet count at that time was 97,000. He had then failed to return for further follow-up until December 2019 when he came in complaining of deep fatigue and weakness . His platelet count was moderately decreased at 68,000 with hemoglobin normal at 14.6 g and white blood cell count 10,000. Sed rate was basically normal at 16 mm/hour. Comprehensive metabolic profile was unremarkable except for elevated nonfasting blood sugar and his LDH was normal at 143 U/L. His RUSTAM screening test was positive at 1:640. RUSTAM profile was unrevealing. With those findings, he continued expectant management. His other medical illnesses include hypertension, hyperlipidemia, and type 2 diabetes. He has associated peripheral neuropathy. 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 He has been followed by Dr. Ocasio. He has a past history of smoking up to 1 pack of cigarettes daily, but he quit smoking in 1964. INTERIM HISTORY: On 04/04/2021 he was seen in the emergency room with back pain on the right side. A specific cause for the pain was not determined. His laboratory studies showed a slightly elevated white blood cell count 11,800. Hemoglobin was normal at 15 g. Platelet count remained adequate at 56,000. His CT abdomen/pelvis showed enlarged appendix without adjacent inflammation and with no evidence for abscess or perforation. There was no evidence of renal obstruction. He was noted to have several small mesenteric lymph nodes, the largest measuring 10 mm in the right abdomen anterior to the kidney. There were small retroperitoneal lymph nodes and aortocaval nodes and right lower quadrant lymph nodes. Also noted with some mild mesenteric panniculitis. The lymph nodes were noted to be slightly greater in size compared to the prior study in 2012. He is seen for a follow-up visit. He complains that he has no energy and that he is tired all the time. His activity is very limited, but he is up and around. His ECOG score is 2. He continues to have back pain intermittently. He also reports having pain in his rear end area extending down into his legs. He describes this as an ache, and he has associated leg weakness. He still has good appetite. His weight is down 7 pounds compared to his December 2019 visit. He does not have fever or night sweats. He has a lot of sinus drainage. He complains of dry mouth and dry eyes, and he also has blurry vision. His breathing is labored at times. He has just occasional cough. He recently has had some pain in the substernal area, which he thought was probably GI. However, he does not have any other obvious acid reflux symptoms. He does report having a light, sickening feeling in his mid abdominal area. He tends to have constipation, but occasionally with runny stools. He has not been aware of any blood in the stool. He describes his urination as scanty and frequent. He does not complain of headache. He does tend to get out of balance and he has neuropathy in his feet. His arms are often numb when he wakes up in the morning. Medications: amLODIPine Besylate 1 Tablet (of 10 mg) Oral daily, Folic Acid 1 (1 mg) Tablet Oral daily, Garlic 1 Tablet Oral daily, Lisinopril 1 (40 mg) Tablet Oral daily, Magnesium 1 (250 mg) Tablet Oral daily, Neurontin 1 (400 mg) Capsule Oral t.i.d., NovoLIN 70/30 (70-30 %) Subcutaneous Take as Directed, Super B Complex Maxi 1 Tablet Oral daily, Tamsulosin HCl 1 Capsule (of 0.4 mg) Oral at bedtime, Taurine 1 Capsule (of 500 mg) Oral daily, Triamcinolone Acetonide 1 (0.5 %) Cream Topical daily, Vitamin D3 1 (400 Units) Tablet Oral daily Allergies: CT Dye and MetFORMIN HCl. Vital Signs: Performed on May 09, 2021 08:26 Height - 69.50 in Weight - 180.2 lbs (LOW) BSA - 1.99 sq.m BMI - 26.23 Temperature - 97.3 F (LOW) Pulse - 65 /min Respiration - 18 /min BP - 146/67 mm(hg) (HIGH) O2 Sat - 97 % Pain - 6 Fatigue - 9 Physical Examination: Constitutional - He appears somewhat weak generally, Eyes - Sclerae nonicteric. Conjunctivae clear, ENMT - No lesions noted in the oral cavity, Neck - No mass or thyromegaly noted, Hematologic/Lymphatic - No cervical, clavicular, or axillary adenopathy, Respiratory - Lungs are clear with good air movement bilaterally, Cardiovascular - Heart rythm is regular. There is a II/ systolic murmur. There is no gallop or rub noted, Abdomen - Soft and non-tender. Liver is not enlarged. There is no abdominal mass or ascites noted. There is no inguinal adenopathy, Extremities - There are venous stasis changes bilaterally. There is no edema. Dorsalis pedis and posterior tibial pulses are palpable bilaterally, Integumentary - There are no suspicious skin lesions noted, Neurologic - No focal neurologic deficits noted. There is no definite muscle weakness noted in the upper or lower extremities. Lab/Imaging: Test performed on April 04, 2021 14:13 Sodium 139 mmol/L Potassium 5.1 mmol/L Chloride 104 mmol/L CO2 28 mmol/L Anion Gap 12.1 BUN 18 mg/dL Creatinine 1.2 mg/dL Cr Clearance (Est) 54.8700 mL/min Glucose 65 mg/dL Osmolality - Calculated 288 mOsm/kg Calcium 9.1 mg/dL Protein, Total 8.2 g/dL Albumin 4.3 g/dL Globulin 3.9 g/dL Bilirubin, Total 0.3 mg/dL ALT (SGPT) 19 Units/L AST (SGOT) 30 Units/L Alkaline Phosphatase 114 IU/L WBC 11.8 10^3/uL RBC 4.76 10^6/uL HGB 15.0 g/dL HCT 45.3 % MCV 95.2 fl MCH 31.5 pg MCHC 33.1 g/dL RDW 13.0 % Platelet Count 56 10^3/uL MPV 17.0 fl Neutrophils 4.86 10^3/uL Lymphocytes 5.3 10^3/uL Monocytes 1.0 10^3/uL Eosinophils 0.6 10^3/uL Basophils 0.1 10^3/uL Neutrophil % 41.1 % Lymphocyte % 44.6 % Monocyte % 8.1 % Eosinophil % 5.3 % Basophils % 0.7 % NRBC 0.0 /100 WBC NRBC % 0 % Problem List: 1. Low-grade non-Hodgkin's lymphoma, stage IV, initially diagnosed in 1998. The lymphoma has been in clinical remission following chemotherapy treatment. 2. 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 It eventually did show some response to treatment with danazol. 3. He has symptoms suggestive of other autoimmune disease, including Sjogren's syndrome and Raynaud's disease, and he has had a positive RUSTAM at 1:640 titer. 4. He underwent TURBT for superficial bladder cancer in 2012. 5. Hypertension. 6. Hyperlipidemia. 7. Type 2 diabetes with peripheral neuropathy. 8. Chronic kidney disease. 9. Benign prostatic hypertrophy. 10. He has history of pulmonary histoplasmosis. Problems Addressed with this Encounter and Plan: 1. Patient with low-grade non-Hodgkin's lymphoma, stage IV, initially diagnosed in 1998. The lymphoma had been in clinical remission following chemotherapy treatment. His CT abdomen/pelvis on 04/04/2021 showed slight increase in small mesenteric and retroperitoneal lymph nodes, suggesting possible progression of the lymphoma. That study also showed evidence of mesenteric misting, possibly due to lymphoma. Thus far it does not appear to be symptomatic. However, the findings are significant enough to warrant a restaging PET/CT, which will be scheduled now. I also will repeat laboratory studies to include CBC, comprehensive metabolic profile, sed rate, LDH level, TSH level, and B12 level, and I will review the blood smear. He will have further evaluation as indicated. 2. He has increasing fatigue/weakness, and there is associated pain in the low back/sacral area radiating into the lower extremities. Depending on the PET/CT findings, he also may need an MRI of the lumbar spine to evaluate for lumbar spinal canal stenosis. 3. 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 It eventually did show some response to treatment with danazol. He then continued on expectant management. During follow-up he has continued to have moderately severe thrombocytopenia, but it has not been severe enough to require treatment. As such, he remains on observation/expectant management. Signed By: Robin Dixon M.D. <<Signature on File>>
== END 2021-05-09 08:02 | disposition home or self-care (01) ==
PROVIDERS: PCP Family Medicine; Visit Provider Internal Medicine Medical Oncology
DX: Z08 Encounter for follow-up examination after completed treatment for malignant neoplasm (principal); Z85.72 Personal history of non-Hodgkin lymphomas; D69.3 Immune thrombocytopenic purpura; M35.00 Sjogren syndrome, unspecified; I73.00 Raynaud's syndrome without gangrene; I10 Essential (primary) hypertension; E78.5 Hyperlipidemia, unspecified; E11.42 Type 2 diabetes mellitus with diabetic polyneuropathy; E11.22 Type 2 diabetes mellitus with diabetic chronic kidney disease; N18.9 Chronic kidney disease, unspecified; N40.0 Benign prostatic hyperplasia without lower urinary tract symptoms; Z87.448 Personal history of other diseases of urinary system; Z79.899 Other long term (current) drug therapy
CPT/HCPCS: 80053; 82607; 83615; 84443; 85025; 85651; 99215

== ENCOUNTER 2021-05-31 08:19 | Outpatient (CLI) | payer OTHER, MEDICARE, SELFPAY ==
--- NOTE | 2021-05-31 08:26 | MR_ITS ---
WS: [id number] MRI LUMBAR SPINE WITH AND WITHOUT CONTRAST. HISTORY: LYMPHOMA;PAIN IN LOW BACK/SACRAL AREA RADIATING INTO LOWER COMPARISON: 06/15/2015. PET CT 05/11/2021 TECHNIQUE: Sagittal and axial multisequence imaging is submitted. Postcontrast imaging. Increase in thoracic kyphosis. Posterior alignment is near normal of the vertebral bodies. Advanced degenerative disc disease and os teophytosis in the lumbar spine. No acute fracture. Small amount of marrow edema associated with a Sc hmorl's node at L2. Conus terminates normally at L1. T12-L1: Mild annular disc bulging. Mild ligamentum flavum and facet arthritis. L1-L2: Diffuse annular disc bulging slightly greater to the RIGHT of midline. Mild ligamentum flavum and facet hypertrophy and fluid in the facet joints. There is mild central stenosis with moderate anna ateral subarticular recess stenosis and mild foraminal stenosis. L2-L3: Moderate diffuse annular disc bulging with ligamentum flavum disease and facet arthritis. Leonides tional focal central disc protrusion. Mild central and bilateral foraminal stenosis with moderate anna ateral subarticular recess stenosis causing encroachment upon the L3 nerve roots. L3-L4: Diffuse annular disc bulging with facet and ligamentum flavum arthritis. Mild foraminal narrow ing. L4-L5: Marked diffuse annular disc bulging and osteophytic ridging with severe ligamentum flavum dise ase and facet arthritis. Disc is encroaching into the lateral recesses, subarticular recesses and for amen. Severe central and bilateral lateral recess and subarticular recess stenosis. L5-S1: Diffuse annular disc bulging and osteophytic ridging. Mild facet and ligamentum flavum hypertr ophy. Very mild disc and osteophyte encroachment upon the S1 nerve roots bilaterally. Mild bilateral foraminal stenosis, LEFT greater than RIGHT. Partially visualized cyst associated with the RIGHT kidney. Mild atherosclerosis aorta. Post contrast imaging is negative for discitis or osteomyelitis. No destructive bone lesions or abnormal enhanceme nt. Marrow signal in the sacrum is heterogeneous. There is very slight enhancement but the sacrum was negative on the recent PET/CT. MR/MR lumbar spine wo/w con [id number] IMPRESSION: 1. No discitis or osteomyelitis. 2. 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 3. Moderate bilateral subarticular recess stenosis at L1-2 and L2-3 with mild central and foraminal stenosis. 4. Minimal encroachment upon the S1 nerve roots bilaterally at L5-S1 by disc a nd osteophyte disease. 5. Mild heterogeneous marrow signal bilaterally within the ilium with slight e nhancement. Recent PET/CT was negative. Cannot confirm metastasis at this time. If pain continues consider short-term follow-up in 3-4 weeks of the pelvis wit h and without contrast.
[2021-05-31] MEDS: gadobenate dimeglumine 20 mL vial IV (09:25)
== END 2021-05-31 08:20 | disposition home or self-care (01) ==
LOC: RADSHAW 08:25
PROVIDERS: PCP Family Medicine; Visit Provider Internal Medicine Medical Oncology
DX: M54.5 Low back pain (principal); M54.18 Radiculopathy, sacral and sacrococcygeal region; R53.1 Weakness; M48.061 Spinal stenosis, lumbar region without neurogenic claudication
CPT/HCPCS: 72158; A9577

== ENCOUNTER → 2021-06-18 10:56 | Outpatient (BNVA) | payer OTHER, MEDICARE, SELFPAY | PROVIDERS: PCP Family Medicine; Visit Provider Orthopaedic Surgery | DX: M54.5 Low back pain (principal); M48.062 Spinal stenosis, lumbar region with neurogenic claudication; M41.86 Other forms of scoliosis, lumbar region | CPT/HCPCS: 72110 ==

== ENCOUNTER → 2021-09-04 10:28 | Outpatient (BNVA) | payer OTHER, SELFPAY | PROVIDERS: PCP Family Medicine; Referring Provider Emergency Medicine Emergency Medical Services; Visit Provider Anesthesiology Pain Medicine | DX: G89.29 Other chronic pain (principal); M48.062 Spinal stenosis, lumbar region with neurogenic claudication; M79.604 Pain in right leg; M79.605 Pain in left leg | CPT/HCPCS: 99205 ==

== ENCOUNTER → 2021-09-11 12:30 | Outpatient (BNVA) | payer OTHER, SELFPAY | PROVIDERS: PCP Family Medicine; Visit Provider Anesthesiology Pain Medicine | DX: Z01.812 Encounter for preprocedural laboratory examination (principal); E11.9 Type 2 diabetes mellitus without complications; G89.29 Other chronic pain; M54.16 Radiculopathy, lumbar region | CPT/HCPCS: 36416; 64483; 64484; 82962; J1100; J3490 ==

== ENCOUNTER → 2021-09-25 12:41 | Outpatient (BNVA) | payer OTHER, SELFPAY | PROVIDERS: PCP Family Medicine; Visit Provider Anesthesiology Pain Medicine | DX: Z01.812 Encounter for preprocedural laboratory examination (principal); E11.9 Type 2 diabetes mellitus without complications; G89.29 Other chronic pain; M54.16 Radiculopathy, lumbar region; Z91.041 Radiographic dye allergy status | CPT/HCPCS: 64483; 64484; J1100; J1200; J3490 ==

== ENCOUNTER → 2021-10-09 09:45 | Outpatient (BNVA) | payer OTHER, SELFPAY | PROVIDERS: PCP Emergency Medicine Emergency Medical Services; Visit Provider Anesthesiology Pain Medicine | DX: G89.29 Other chronic pain (principal); M48.062 Spinal stenosis, lumbar region with neurogenic claudication; M79.604 Pain in right leg; M79.605 Pain in left leg | CPT/HCPCS: 99213; 99214 ==

== ENCOUNTER 2021-10-25 10:30 | Outpatient (CLI) | payer OTHER, SELFPAY ==
[2021-10-25 11:46] LABS: Basophils # 0.1 10^3/uL (0.0-0.1); Basophils % 0.6 %; Eosinophils # 0.5 10^3/uL (0.0-0.8); Eosinophils % 4.8 %; Hematocrit 39.2 % (42.0-52.0); Hemoglobin 12.8 g/dL (11.7-16.6); Lymphocytes # 3.5 10^3/uL (0.8-4.8); Lymphocytes % 36.8 %; Mean Corpuscular HGB Conc 32.7 g/dL (30.0-36.0); Monocytes # 1.1 10^3/uL (0.2-0.9); Monocytes % 11.4 %; Neutrophils # 4.44 10^3/uL (1.8-7.7); Neutrophils % 46.2 %; Nucleated Red Blood Cells % 0 %; Platelet Count 31 10^3/cmm (130-400); Red Cell Distribution Width 13.3 % (12.1-15.1); White Blood Count 9.6 10^3/uL (4.0-10.0)
[2021-10-25 12:37] LABS: Alanine Aminotransferase 13 U/L (0-41); Albumin Level 3.8 g/dL (3.5-5.2); Alkaline Phosphatase 109 IU/L (40-130); Anion Gap 14.2 (5-19); Aspartate Amino Transferase 17 U/L (0-40); Blood Urea Nitrogen 20 mg/dL (8-23); Calcium 8.6 mg/dL (8.5-10.5); Carbon Dioxide 24 mmol/L (22-29); Chloride 102 mmol/L (98-107); Globulin 3.2 g/dL (1.3-4.6); Glucose 377 mg/dL (65-115); Osmolality Calculated 298 mOsm/kg (285-295); Potassium 5.2 mmol/L (3.5-5.1); Slide Review Slide Review Perform; Sodium 135 mmol/L (136-145); Total Bilirubin 0.3 mg/dL (0.15-1.2)
[2021-10-25 12:38] LABS: LAB Peripheral Smear Sent for Review
== END 2021-10-25 10:31 | disposition home or self-care (01) ==
LOC: ONCMED 10:31
PROVIDERS: PCP Emergency Medicine Emergency Medical Services; Visit Provider Internal Medicine Medical Oncology
DX: C85.80 Other specified types of non-Hodgkin lymphoma, unspecified site (principal); D69.3 Immune thrombocytopenic purpura
CPT/HCPCS: 36415; 80053; 85025

== ENCOUNTER 2021-11-05 09:56 | Day surgery (SDC) | payer OTHER, SELFPAY ==
[2021-11-01 13:29] VITALS: BMI 26.6
[2021-11-05 10:18] VITALS: BP 150/58; PULSE 57; RESP 18; TEMP 36.1; O2SAT 97
[2021-11-05 11:31] LABS: Basophils # 0.1 10^3/uL (0.0-0.1); Basophils % 0.6 %; Eosinophils # 0.3 10^3/uL (0.0-0.8); Eosinophils % 3.4 %; Hematocrit 42.4 % (42.0-52.0); Hemoglobin 14.1 g/dL (11.7-16.6); Lymphocytes # 4.7 10^3/uL (0.8-4.8); Lymphocytes % 46.5 %; Mean Corpuscular HGB Conc 33.3 g/dL (30.0-36.0); Mean Corpuscular Volume 96.4 fl (80-94); Mean Platelet Volume 15.2 fL (7.4-10.4); Monocytes % 9.9 %; Neutrophils % 39.4 %; Nucleated Red Blood Cells % 0 %; Platelet Count 58 10^3/cmm (130-400); White Blood Count 10.1 10^3/uL (4.0-10.0)
--- NOTE | 2021-11-05 12:54 | P.ANESASSM_ITS ---
Pre-Anesthetic Assessment Pre-Anesthetic Assessment: Height/Weight: Height 1.75 m Weight 81.647 kg Temp Pulse Resp BP Pulse Ox 97 F L 57 L 18 150/58 97 11/05/21 10:18 11/05/21 10:18 11/05/21 10:18 11/05/21 10:18 11/05/21 10:18 Preop Diagnosis: lymphoma workup Proposed Procedure: Operation Date: 11/05/21 11:00 Proposed Procedures p Bone Marrow Biospy With Aspiration(Not Applicable) - Dick Ryder MD Familial anesthetic complications: PONV Last intake: Intake Last Liquid Date 11/05/21 Last Liquid Time 08:00 Last Solid Date 11/04/21 Last Solid Time 22:30 Social: Social History: No alcohol Exam: Pre-Anes Outpt Exam: alert, oriented x 3 and No clear to auscultation bilaterally Airway: Submandibular: WNL Cervical ROM: WNL MP: 2 Dentition: False Pulmonary: Pulmonary: None reported CV/HEM: CV/HEM: HTN : : Chronic renal Insufficiency Hepatic: Hepatic: None reported GI: GI: GERD Metabolic: Metabolic: DM Musc/skel: Musc/skel: None reported Neuropsych: Neuropsych: None reported Anesthetic Plan: ASA status: 3 PFSH Anesthesia PFSH: Social History Second hand smoke exposure: No Alcohol intake: never Caregiver/support person: Yes Lives independently: Yes Household members: spouse History of recent travel: No Data Anesthesia CBC & Chem 7: 11/05/21 11:00 Other Labs: Laboratory Results - last 48 hr 11/05/21 11:00 WBC 10.1 H RBC 4.40 Hgb 14.1 Hct 42.4 MCV 96.4 H MCH 32.0 MCHC 33.3 RDW 13.0 Plt Count 58 L MPV 15.2 H Neut % (Auto) 39.4 Lymph % (Auto) 46.5 [place] % (Auto) 9.9 Eos % (Auto) 3.4 Baso % (Auto) 0.6 Neut # (Auto) 4.00 Lymph # (Auto) 4.7 [place] # (Auto) 1.0 H Eos # (Auto) 0.3 Baso # (Auto) 0.1 Nucleated RBC % (auto) 0 Nucleated RBCs # 0.0 Cardiac Studies: No Data to Display
[2021-11-05] MEDS: sodium chloride 0.9% 1,000 ML 30 ML IV (13:00)
--- NOTE | 2021-11-05 13:08 | W.PM.OPSUD ---
Surgery/Procedure H&P Update DATE OF PROCEDURE: November 05, 2021 DATE H&P PERFORMED: 10/30/21 PREOP DIAGNOSIS: lymphoma workup PLANNED PROCEDURE: I did review Dr. Dixon's history and physical note and will proceed with bone marrow aspiration biopsy. Operation Date: 11/05/21 11:00 Proposed Procedures p Bone Marrow Biospy With Aspiration(Not Applicable) - Dick Ryder MD
--- NOTE | 2021-11-05 13:29 | P.PCN_ITS ---
Bone Marrow Biopsy Bone Marrow Biopsy: I was consulted by [] office regarding bone marrow biopsy on Sumit Abel [. Briefly, the patient is a [81] year old [Male] with [Thrombocytopenia, history of lymphoma]. In the Outpatient Services Department, with nursing staff and laboratory technologists in attendance, the procedure was discussed with the patient. Appropriate consent form had been signed. Appropriate alternatives, benefits and risks of procedure were discussed with the patient and he was pre- operatively assessed with a history and physical by myself and cleared for the biopsy procedure. The patient did request IV sedation and that was provided by the Anesthesia Department. Under aseptic condition right posterior iliac area was cleaned and prepped, local anesthesia was given, about 15 cc of bone marrow aspirate and core biopsy was obtained, patient tolerated procedure well, hemostasis obtained, specimen was sent for routine histopathology, flow cytometry/genetic and MDS panel and lymphoma panel. Postprocedure nursing instructions were given Thank you for allowing me to participate in this patient's care and diagnosis. Coding Level of Care Code Acute Electrification Adviser for Fatimah Munoz
[2021-11-05 13:34] VITALS: BP 125/64; PULSE 64; RESP 18; TEMP 36.1; O2SAT 99
[2021-11-05 14:09] VITALS: BP 135/74; PULSE 65; RESP 18; TEMP 36.2; O2SAT 97
[2021-11-13 10:56] LABS: Miscellaneous Test See Scanned Lab Rpt
[2021-11-25 11:29] LABS: Miscellaneous Test See Scanned Lab Rpt
== END 2021-11-05 14:12 | disposition home or self-care (01) ==
PROVIDERS: PCP Emergency Medicine Emergency Medical Services; Visit Provider Internal Medicine Hematology & Oncology
PROC: 07DT3ZX Extraction of Bone Marrow, Percutaneous Approach, Diagnostic (ICD-10-PCS; CPT 38222; principal; 2021-11-05 11:00)
DX: D69.6 Thrombocytopenia, unspecified (principal); C85.80 Other specified types of non-Hodgkin lymphoma, unspecified site; I10 Essential (primary) hypertension; K21.9 Gastro-esophageal reflux disease without esophagitis; E11.9 Type 2 diabetes mellitus without complications
CPT/HCPCS: 38222; 85025; 88237; 88264; 88271; 88275; 88305; 88311; 88367; 88374; 96360; J7030

== ENCOUNTER 2021-11-11 15:00 | Outpatient (RCR) | payer OTHER, SELFPAY ==
--- NOTE | 2021-10-30 08:35 | ONC FU_ITS ---
Dr. Dixon Patient Follow-Up Note Patient: Sumit Abel Unit #: [id number]: [id number] Dicatated By: Robin Dixon M.D.Date of Visit:Oct 29, 2021 Onc Med Follow-up/Prog Note Chief Complaint: Lymphoma/autoimmunue thrombocytopenia. History of Present Illness: This is an 80 year-old man with stage IV low-grade non-Hodgkin's lymphoma, initially diagnosed in 1998. I did not receive complete records regarding the specific histologic subtype of the lymphoma. He had associated autoimmune thrombocytopenia. The lymphoma had been in clinical remission following chemotherapy, though he continued to have problems with the thrombocytopenia, which was resistant to standard therapies and to splenectomy. Eventually, he did respond to treatment with danazol. I had seen him initially in May of 2011. His platelet count was moderately decreased, though adequate, at 72,000. Restaging PET/CT on 07/04/2011 showed minimally increased activity in scattered, small mediastinal lymph nodes, maximum SUV 4.6, consistent with low-grade lymphoma versus reactive adenopathy,. Activity in cervical lymph nodes was felt to be probably reactive. His repeat bone marrow aspiration/biopsy on 07/09/2011 showed normal cellular bone marrow at 60% cellularity. There were normal to mildly increased megakaryocytes. There were no overt dysplastic changes. There was no evidence of lymphoma or other infiltrative process in the bone marrow. The chromosome analysis was normal. With those findings, he continued observation/expectant management. As of his visit in November 2012 he appeared stable clinically. Platelet count at that time was 97,000. He had then failed to return for further follow-up until December 2019 when he came in complaining of deep fatigue and weakness . His platelet count was moderately decreased at 68,000 with hemoglobin normal at 14.6 g and white blood cell count 10,000. Sed rate was basically normal at 16 mm/hour. Comprehensive metabolic profile was unremarkable except for elevated nonfasting blood sugar, and his LDH was normal at 143 U/L. His RUSTAM screening test was positive at 1:640. RUSTAM profile was unrevealing. With those findings, he continued expectant management. His other medical illnesses include hypertension, hyperlipidemia, and type 2 diabetes. He has associated peripheral neuropathy. 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 He has been followed by Dr. Ocasio. He has a past history of smoking up to 1 pack of cigarettes daily, but he quit smoking in 1964. INTERIM HISTORY: On 04/04/2021 he was seen in the emergency room with back pain on the right side. A specific cause for the pain was not determined. His laboratory studies showed a slightly elevated white blood cell count 11,800. Hemoglobin was normal at 15 g. Platelet count remained adequate at 56,000. His CT abdomen/pelvis showed enlarged appendix without adjacent inflammation and with no evidence for abscess or perforation. There was no evidence of renal obstruction. He was noted to have several small mesenteric lymph nodes, the largest measuring 10 mm in the right abdomen anterior to the kidney. There were small retroperitoneal lymph nodes and aortocaval nodes and right lower quadrant lymph nodes. Also noted with some mild mesenteric panniculitis. The lymph nodes were noted to be slightly greater in size compared to the prior study in 2012. Restaging PET/CT on 05/11/2021 showed small, scattered lymph nodes from the level of the head/neck to the level of the upper abdomen with mild FDG activity, suggestive of active lymphoma. This included bilateral jugulodigastric nodes, more prominent on the right than the left, measuring up to 1 cm with SUV 4.5, FDG avid right axillary lymph nodes and multiple positive mediastinal lymph nodes. An index mediastinal lymph node in the right paratracheal area measuring 1.3 cm with SUV 4.4. Small mesenteric and portal nodes were noted to be minimally FDG positive. There were no findings for extranodal disease. As the extent of the adenopathy did not appear to be significant enough to be symptomatic, I opted to continue with expectant management. He is seen for a follow-up visit. He continues to complain of having real bad fatigue and feeling rundown. He says he cannot do anything without getting exhausted, nearly to the point of collapsing. His ECOG score is 2. He has good appetite. Weight is down just a couple of pounds. He has no fever or night sweats, but he does complain of generalized itching, severe enough that he has been having to take Benadryl on a regular basis. He has constant nasal drainage, and he has a small amount of epistaxis from the right nostril about every night. He does not complain of cough, and he says his breathing is pretty good. He sometimes has chest pain, which he thinks is due to heartburn. He has some constipation. His urination is slow. He has pain in his back and both hips. He also has soreness in his right shoulder and arm. He does not complain of headache. He does report having a lot of dizziness, and he has neuropathy in his legs and feet. Medications: amLODIPine Besylate 1 Tablet (of 10 mg) Oral daily, Folic Acid 1 (1 mg) Tablet Oral daily, Garlic 1 Tablet Oral daily, Lisinopril 1 (40 mg) Tablet Oral daily, Magnesium 1 (250 mg) Tablet Oral daily, Neurontin 1 (400 mg) Capsule Oral t.i.d., NovoLIN 70/30 (70-30 %) Subcutaneous Take as Directed, Super B Complex Maxi 1 Tablet Oral daily, Tamsulosin HCl 1 Capsule (of 0.4 mg) Oral at bedtime, Taurine 1 Capsule (of 500 mg) Oral daily, Triamcinolone Acetonide 1 (0.5 %) Cream Topical daily, Vitamin D3 1 (400 Units) Tablet Oral daily Allergies: CT Dye and MetFORMIN HCl. Vital Signs: Performed on Oct 29, 2021 09:01 Height - 69.50 in Weight - 177.6 lbs (LOW) BSA - 1.97 sq.m BMI - 25.85 Temperature - 97.2 F (LOW) Pulse - 47 /min (LOW) Respiration - 18 /min BP - 130/51 mm(hg) O2 Sat - 97 % Pain - 0 Fatigue - 9 Physical Examination: Constitutional - He appears somewhat weak generally, Eyes - Sclerae nonicteric. Conjunctivae clear, ENMT - No lesions noted in the oral cavity, Hematologic/Lymphatic - There is no cervical, clavicular, or axillary adenopathy noted, Respiratory - Lungs are clear with good air movement bilaterally, Cardiovascular - Heart rythm is regular. There is a II/ systolic murmur. There is no gallop or rub noted, Abdomen - Soft. Liver is not enlarged. There is no abdominal mass or ascites noted. There is no inguinal adenopathy, Extremities - There are mild venous stasis changes bilaterally. There is no edema. Pedal pulses are palpable bilaterally, Integumentary - There are a few scattered ecchymoses and purpuric lesions. There are no petechiae noted, Neurologic - No focal neurologic deficits noted. Lab/Imaging: Test performed on Oct 25, 2021 11:18 Sodium 135 mmol/L Potassium 5.2 mmol/L Chloride 102 mmol/L CO2 24 mmol/L Anion Gap 14.2 BUN 20 mg/dL Creatinine 1.1 mg/dL Cr Clearance (Est) 58.8300 mL/min Glucose 377 mg/dL Osmolality - Calculated 298 mOsm/kg Calcium 8.6 mg/dL Protein, Total 7.0 g/dL Albumin 3.8 g/dL Globulin 3.2 g/dL Bilirubin, Total 0.3 mg/dL ALT (SGPT) 13 U/L AST (SGOT) 17 U/L Alkaline Phosphatase 109 IU/L WBC 9.6 10 3/uL RBC 4.00 10 6/uL HGB 12.8 g/dL HCT 39.2 % MCV 98.0 fl MCH 32.0 pg MCHC 32.7 g/dL RDW 13.3 % Platelet Count 31 10 3/cmm Neutrophils 4.44 10 3/uL Lymphocytes 3.5 10 3/uL Monocytes 1.1 10 3/uL Eosinophils 0.5 10 3/uL Basophils 0.1 10 3/uL Neutrophil % 46.2 % Lymphocyte % 36.8 % Monocyte % 11.4 % Eosinophil % 4.8 % Basophils % 0.6 % NRBC % 0 % CBC Slide Review Slide Review Perform SLIDE REVIEW AGREES WITH AUTOMATED RESULTS ST Problem List: 1. Low-grade non-Hodgkin's lymphoma, stage IV, initially diagnosed in 1998. The lymphoma has been in clinical remission following chemotherapy treatment. 2. 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 It eventually did show some response to treatment with danazol. 3. He has symptoms suggestive of other autoimmune disease, including Sjogren's syndrome and Raynaud's disease, and he has had a positive RUSTAM at 1:640 titer. 4. He underwent TURBT for superficial bladder cancer in 2012. 5. Hypertension. 6. Hyperlipidemia. 7. Type 2 diabetes with peripheral neuropathy. 8. Chronic kidney disease. 9. Benign prostatic hypertrophy. 10. He has history of pulmonary histoplasmosis. Problems Addressed with this Encounter and Plan: 1. Patient with low-grade non-Hodgkin's lymphoma, stage IV, initially diagnosed in 1998. The lymphoma had been in clinical remission following chemotherapy treatment. His CT abdomen/pelvis on 04/04/2021 showed slight increase in small mesenteric and retroperitoneal lymph nodes, suggesting possible progression of the lymphoma. That study also showed evidence of mesenteric misting, possibly due to lymphoma. Restaging PET/CT on 05/11/2021 showed small mildly FDG positive lymph nodes from the level of the head/neck to the level of the upper abdomen, felt to be consistent with active lymphoma. There is no evidence of extranodal disease. As the adenopathy did not appear extensive enough to be symptomatic, he continued on expectant management. He has since then had worsening fatigue, and he he also has developed generalized itching, which is suspicious for progression of the lymphoma. In addition, there has been a significant decline in his platelet count over the past 6 months. As such, he will be scheduled for restaging with CT scans of the chest and abdomen/pelvis and he also will be scheduled for repeat bone marrow aspiration/biopsy. He will have further evaluation as indicated. 2. He had reported increased lower extremity weakness with associated pain in the low back/sacral area radiating into the lower extremities. His MRI of the lumbar spine on 05/31/2021 showed severe central, bilateral lateral recess, and subarticular recess stenosis at L4-5. It was felt to be multifactorial, but there was no associated mass to suggest involvement with lymphoma. With those findings he was referred to Dr. Felder for further management. 3. 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 It eventually did show some response to treatment with danazol. He then continued on expectant management. During follow-up he continued to have moderately severe thrombocytopenia. Thus far it has not been associated with any apparent bleeding tendency, but his platelet count has progressively declined over the past 6 months. Signed By: Robin Dixon M.D. <<Signature on File>>
[2021-10-30 16:27] LABS: Lactate Dehydrogenase 200 U/L (135-225)
[2021-10-31 09:12] LABS: PROTEIN, TOTAL 7.1 g/dL (6.1-8.1)
[2021-10-31 15:12] LABS: ABNORMAL PROTEIN BAND 1 0.8 g/dL (NONE DETECTED); ALBUMIN 3.8 g/dL (3.8-4.8); ALPHA 1 GLOBULIN 0.3 g/dL (0.2-0.3); ALPHA 2 GLOBULIN 0.7 g/dL (0.5-0.9); BETA 1 GLOBULIN 0.4 g/dL (0.4-0.6); BETA 2 GLOBULIN 0.5 g/dL (0.2-0.5); GAMMA GLOBULIN 1.4 g/dL (0.8-1.7)
[2021-10-31 15:30] LABS: Erythrocyte Sedimentation Rate 48 mm/hr (0-10)
[2021-10-31 16:41] LABS: KAPPA LIGHT CHAIN, FREE, SERUM 356.2 mg/L (3.3-19.4); KAPPA/LAMBDA LIGHT CHAINS FREE 19.15 (0.26-1.65); LAMBDA LIGHT CHAIN, FREE, SERU 18.6 mg/L (5.7-26.3)
[2021-11-01 17:06] LABS: Anti-Nuclear Antibody Screen POSITIVE (NEGATIVE); Anti-Nuclear Antibody Titer > OR = 1:1280 titer
== END 2021-11-22 23:59 | disposition home or self-care (01) ==
LOC: RADWPI 15:00
PROVIDERS: PCP Emergency Medicine Emergency Medical Services; Visit Provider Internal Medicine Medical Oncology
DX: D69.6 Thrombocytopenia, unspecified (principal); E78.5 Hyperlipidemia, unspecified; E11.42 Type 2 diabetes mellitus with diabetic polyneuropathy; I12.9 Hypertensive chronic kidney disease with stage 1 through stage 4 chronic kidney disease, or unspecified chronic kidney disease; N18.9 Chronic kidney disease, unspecified; N40.0 Benign prostatic hyperplasia without lower urinary tract symptoms; R53.1 Weakness; Z85.72 Personal history of non-Hodgkin lymphomas
CPT/HCPCS: 36415; 83615; 83883; 84155; 84165; 85651; 86038; 87635; 99215

== ENCOUNTER → 2021-11-25 09:25 | Outpatient (BNVA) | payer OTHER, SELFPAY | PROVIDERS: PCP Emergency Medicine Emergency Medical Services; Visit Provider Anesthesiology Pain Medicine | DX: G89.29 Other chronic pain (principal); M48.062 Spinal stenosis, lumbar region with neurogenic claudication; M79.604 Pain in right leg; M79.605 Pain in left leg | CPT/HCPCS: 99212 ==

== ENCOUNTER 2021-12-05 08:56 | Outpatient (RCR) | payer OTHER, SELFPAY ==
[2021-12-05 09:29] LABS: Basophils # 0.1 10^3/uL (0.0-0.1); Basophils % 0.6 %; Eosinophils # 0.1 10^3/uL (0.0-0.8); Eosinophils % 1.1 %; Hematocrit 40.4 % (42.0-52.0); Hemoglobin 13.2 g/dL (11.7-16.6); Lymphocytes # 3.1 10^3/uL (0.8-4.8); Lymphocytes % 30.7 %; Mean Corpuscular HGB Conc 32.7 g/dL (30.0-36.0); Mean Corpuscular Hemoglobin 31.7 pg (28.0-34.0); Mean Corpuscular Volume 96.9 fl (80-94); Mean Platelet Volume 14.5 fL (7.4-10.4); Monocytes # 0.6 10^3/uL (0.2-0.9); Monocytes % 5.8 %; Neutrophils # 6.22 10^3/uL (1.8-7.7); Neutrophils % 61.4 %; Nucleated Red Blood Cells % 0 %; Platelet Count 58 10^3/cmm (130-400); Red Blood Count 4.17 10^6/uL (4.1-5.3); Red Cell Distribution Width 12.9 % (12.1-15.1); White Blood Count 10.1 10^3/uL (4.0-10.0)
[2021-12-05 09:49] LABS: Alanine Aminotransferase 15 U/L (0-41); Albumin Level 4.1 g/dL (3.5-5.2); Alkaline Phosphatase 98 IU/L (40-130); Blood Urea Nitrogen 17 mg/dL (8-23); Calcium 8.5 mg/dL (8.5-10.5); Carbon Dioxide 20 mmol/L (22-29); Chloride 105 mmol/L (98-107); Globulin 3.3 g/dL (1.3-4.6); Glucose 190 mg/dL (65-115); Osmolality Calculated 297 mOsm/kg (285-295); Sodium 140 mmol/L (136-145); Total Bilirubin 0.4 mg/dL (0.15-1.2); Total Protein 7.4 g/dL (6.6-8.7)
[2021-12-05 09:53] LABS: Anion Gap 19.7 (5-19); Aspartate Amino Transferase 29 U/L (0-40); Lactate Dehydrogenase 199 U/L (135-225); Potassium 4.7 mmol/L (3.5-5.1)
[2021-12-05 09:54] LABS: Slide Review Slide Review Perform
[2021-12-05 09:56] LABS: LAB Peripheral Smear Sent for Review
--- NOTE | 2021-12-06 17:17 | ONC FU_ITS ---
Dr. Dixon Patient Follow-Up Note Patient: Sumit Abel Unit #: [id number]: 1940 Dicatated By: Robin Dixon M.D.Date of Visit:Dec 05, 2021 Onc Med Follow-up/Prog Note Chief Complaint: Lymphoma/autoimmunue thrombocytopenia. 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 His lymphoma was initially diagnosed in 1998. I did not receive complete records regarding the specific histologic subtype. He had associated autoimmune thrombocytopenia. The lymphoma had been in clinical remission following chemotherapy. He continued, though, to have problems with the thrombocytopenia, which was resistant to standard therapies and to splenectomy. Eventually, he did respond to treatment with danazol. I had seen him initially in May of 2011. His platelet count was moderately decreased, though adequate, at 72,000. Restaging PET/CT on 07/04/2011 showed minimally increased activity in scattered, small mediastinal lymph nodes, maximum SUV 4.6, consistent with low-grade lymphoma versus reactive adenopathy,. Activity in cervical lymph nodes was felt to be probably reactive. His repeat bone marrow aspiration/biopsy on 07/09/2011 showed normal cellular bone marrow at 60% cellularity. There were normal to mildly increased megakaryocytes. There were no overt dysplastic changes. There was no evidence of lymphoma or other infiltrative process in the bone marrow. The chromosome analysis was normal. With those findings, he continued observation/expectant management. As of his visit in November 2012 he appeared stable clinically. Platelet count at that time was 97,000. He had then failed to return for further follow-up until December 2019 when he came in complaining of deep fatigue and weakness . His platelet count was moderately decreased at 68,000 with hemoglobin normal at 14.6 g and white blood cell count 10,000. Sed rate was basically normal at 16 mm/hour. Comprehensive metabolic profile was unremarkable except for elevated nonfasting blood sugar, and his LDH was normal at 143 U/L. His RUSTAM screening test was positive at 1:640. RUSTAM profile was unrevealing. With those findings, he continued expectant management. His other medical illnesses include hypertension, hyperlipidemia, and type 2 diabetes. He has associated peripheral neuropathy. 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 He has been followed by Dr. Ocasio. He has a past history of smoking up to 1 pack of cigarettes daily, but he quit smoking in 1964. INTERIM HISTORY: On 04/04/2021 he was seen in the emergency room with back pain on the right side. A specific cause for the pain was not determined. His laboratory studies showed a slightly elevated white blood cell count 11,800. Hemoglobin was normal at 15 g. Platelet count remained adequate at 56,000. His CT abdomen/pelvis showed enlarged appendix without adjacent inflammation and with no evidence for abscess or perforation. There was no evidence of renal obstruction. He was noted to have several small mesenteric lymph nodes, the largest measuring 10 mm in the right abdomen anterior to the kidney. There were small retroperitoneal lymph nodes and aortocaval nodes and right lower quadrant lymph nodes. Also noted with some mild mesenteric panniculitis. The lymph nodes were noted to be slightly greater in size compared to the prior study in 2012. Restaging PET/CT on 05/11/2021 showed small, scattered lymph nodes from the level of the head/neck to the level of the upper abdomen with mild FDG activity, suggestive of active lymphoma. This included bilateral jugulodigastric nodes, more prominent on the right than the left, measuring up to 1 cm with SUV 4.5, FDG avid right axillary lymph nodes and multiple positive mediastinal lymph nodes. An index mediastinal lymph node in the right paratracheal area measuring 1.3 cm with SUV 4.4. Small mesenteric and portal nodes were noted to be minimally FDG positive. There were no findings for extranodal disease. As the extent of the adenopathy did not appear to be significant enough to be symptomatic, I opted to continue with expectant management. At his follow-up visit on 10/29/2021 he reported increased fatigue and generalized itching. His platelet count had decreased to 31,000. His serum protein electrophoresis and IgM monoclonal protein which quantitated at 0.8 g/dL. With those findings, he underwent bone marrow aspiration/biopsy on 11/05/2021. 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 Lymphoplasmacytic lymphoma was favored, but marginal zone lymphoma with paraprotein production and plasmacytic differentiation was also felt to be possible. Restaging PET/CT on 11/30/2021 showed small, shotty lymph nodes from the level of the head and neck to the level of the abdomen, but with resolution of FDG activity compared to the prior study from April 2021. There were no findings of extranodal disease. He is seen for a follow-up visit. He says his energy has been very low and he has limited activity. ECOG score is 2. He has good appetite. He has not had fever or night sweats. He does complain that his skin itches everywhere. He has been using triamcinolone cream to try and hold it down. His other main complaint is that he has been having pain in the right lower back/right buttock area. The pain is worse when he tries to walk. He been seeing Dr. Amaro at pain clinic, and he has had some benefit with BROWN. He reports having intermittent swelling and pain in the glands in his neck. He does not complain of cough. His breathing tends to be labored and he has had chest pain, though not recently. He has postprandial abdominal discomfort and he has ongoing problems with constipation. He says his urination is restricted. He currently he has no other joint or bone pain. He has numbness in his feet/toes. He has been having problems with a skin eruption on his legs and feet. He has been putting antifungal cream on it. Medications: amLODIPine Besylate 1 Tablet (of 10 mg) Oral daily, Folic Acid 1 (1 mg) Tablet Oral daily, Garlic 1 Tablet Oral daily, Lisinopril 1 (40 mg) Tablet Oral daily, Magnesium 1 (250 mg) Tablet Oral daily, Neurontin 1 (400 mg) Capsule Oral t.i.d., NovoLIN 70/30 (70-30 %) Subcutaneous Take as Directed, Super B Complex Maxi 1 Tablet Oral daily, Tamsulosin HCl 1 Capsule (of 0.4 mg) Oral at bedtime, Taurine 1 Capsule (of 500 mg) Oral daily, Triamcinolone Acetonide 1 (0.5 %) Cream Topical daily, Vitamin D3 1 (400 Units) Tablet Oral daily Allergies: CT Dye and MetFORMIN HCl. Vital Signs: Performed on Dec 05, 2021 10:30 Height - 69.50 in Weight - 180.8 lbs (HIGH) BSA - 1.99 sq.m BMI - 26.32 Temperature - 96.8 F (LOW) Pulse - 58 /min (LOW) Respiration - 18 /min BP - 117/58 mm(hg) O2 Sat - 96 % Pain - 0 Fatigue - 9 Physical Examination: Constitutional - He appears somewhat weak generally, Eyes - Sclerae nonicteric. Conjunctivae clear, ENMT - No lesions noted in the oral cavity, Hematologic/Lymphatic - There is no cervical, clavicular, or axillary adenopathy noted, Respiratory - Lungs are clear with good air movement bilaterally, Cardiovascular - Heart rythm is regular. There is a III/ systolic murmur, loudest at the base. There is no gallop or rub noted, Abdomen - Soft. Liver is not enlarged. There is no abdominal mass or ascites noted. There is no inguinal adenopathy, Extremities - No edema. He has good dorsalis pedis pulses bilaterally. There are scattered purpuric lesions, Integumentary - There is evidence of chronic venous stasis dermatitis in both legs. There is additional maculopapular eruption at the ankles and feet, Neurologic - No focal neurologic deficits noted. Lab/Imaging: Test performed on Dec 05, 2021 09:17 LDH (Total) 199 U/L Sodium 140 mmol/L Potassium 4.7 mmol/L Chloride 105 mmol/L CO2 20 mmol/L Anion Gap 19.7 BUN 17 mg/dL Creatinine 1.1 mg/dL Cr Clearance (Est) 59.02 mL/min Glucose 190 mg/dL Osmolality - Calculated 297 mOsm/kg Calcium 8.5 mg/dL Protein, Total 7.4 g/dL Albumin 4.1 g/dL Globulin 3.3 g/dL Bilirubin, Total 0.4 mg/dL ALT (SGPT) 15 U/L AST (SGOT) 29 U/L Alkaline Phosphatase 98 IU/L WBC 10.1 10 3/uL RBC 4.17 10 6/uL HGB 13.2 g/dL HCT 40.4 % MCV 96.9 fl MCH 31.7 pg MCHC 32.7 g/dL RDW 12.9 % Platelet Count 58 10 3/cmm MPV 14.5 fL Neutrophils 6.22 10 3/uL Lymphocytes 3.1 10 3/uL Monocytes 0.6 10 3/uL Eosinophils 0.1 10 3/uL Basophils 0.1 10 3/uL Neutrophil % 61.4 % Lymphocyte % 30.7 % Monocyte % 5.8 % Eosinophil % 1.1 % Basophils % 0.6 % NRBC % 0 % CBC Slide Review Slide Review Perform SLIDE REVIEW AGREES WITH AUTOMATED RESULTS ST Problem List: 1. Low-grade non-Hodgkin's lymphoma, stage IV, initially diagnosed in 1998. The lymphoma was felt to be in clinical remission following chemotherapy treatment. 2. 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 It eventually did show some response to treatment with danazol. 3. He has symptoms suggestive of other autoimmune disease, including Sjogren's syndrome and Raynaud's disease, and he has had a positive RUSTAM at 1:640 titer. 4. He underwent TURBT for superficial bladder cancer in 2012. 5. Hypertension. 6. Hyperlipidemia. 7. Type 2 diabetes with peripheral neuropathy. 8. Chronic kidney disease. 9. Benign prostatic hypertrophy. 10. He has history of pulmonary histoplasmosis. Problems Addressed with this Encounter and Plan: 1. Patient with low-grade non-Hodgkin's lymphoma, stage IV, initially diagnosed in 1998. He had associated autoimmune thrombocytopenia. The lymphoma had been in clinical remission following chemotherapy treatment. His CT abdomen/pelvis on 04/04/2021 showed slight increase in small mesenteric and retroperitoneal lymph nodes, suggesting possible progression of the lymphoma. That study also showed evidence of mesenteric misting, possibly due to lymphoma. Restaging PET/CT on 05/11/2021 showed small mildly FDG positive lymph nodes from the level of the head/neck to the level of the upper abdomen, felt to be consistent with active lymphoma. There is no evidence of extranodal disease. As the adenopathy did not appear extensive enough to be symptomatic, he continued on expectant management. As of his follow-up visit in October 2021 he had experienced some decline in his performance status. His platelet count had dropped to 31,000, and he had a detectable IgM monoclonal protein quantitating at 0.8 g/dL. His repeat bone marrow aspiration/biopsy on 11/05/2021 showed involvement with small B-cell lymphoma with plasmacytic features, estimated at 20 to 30% of the marrow cellularity. A lymphoplasmacytic lymphoma was favored, though marginal zone lymphoma with paraprotein production and plasmacytic differentiation was noted to also be a possibility. Restaging PET/CT on 11/30/2021 showed small, shotty lymph nodes extending from the level of the head and neck to the level of the abdomen, but with resolution of FDG activity compared to the study from April 2021. Overall he continues to have somewhat marginal performance status, but at this point there is no indication that his lymphoma is symptomatic. As his platelet count now appears to be back up to baseline, he is recommended to continue on observation/expectant management. He will be scheduled for a follow-up visit in 3 months. 2. He has a significantly elevated RUSTAM titer, now at 1:1280. This does appear consistent with his autoimmune thrombocytopenia. However, in the absence of any other overt symptoms of systemic lupus, there appears to be no indication for further evaluation/treatment. Signed By: Robin Dixon M.D. <<Signature on File>>
== END 2021-12-23 23:59 | disposition home or self-care (01) ==
LOC: ONCMED 08:56
PROVIDERS: PCP Emergency Medicine Emergency Medical Services; Visit Provider Internal Medicine Medical Oncology
DX: Z08 Encounter for follow-up examination after completed treatment for malignant neoplasm (principal); Z85.72 Personal history of non-Hodgkin lymphomas; D69.3 Immune thrombocytopenic purpura; M35.00 Sjogren syndrome, unspecified; I73.00 Raynaud's syndrome without gangrene; I10 Essential (primary) hypertension; E78.5 Hyperlipidemia, unspecified; E11.42 Type 2 diabetes mellitus with diabetic polyneuropathy; E11.22 Type 2 diabetes mellitus with diabetic chronic kidney disease; N18.9 Chronic kidney disease, unspecified; N40.0 Benign prostatic hyperplasia without lower urinary tract symptoms; B39.1 Chronic pulmonary histoplasmosis capsulati; Z85.51 Personal history of malignant neoplasm of bladder; Z79.899 Other long term (current) drug therapy; Z92.21 Personal history of antineoplastic chemotherapy
CPT/HCPCS: 36415; 80053; 83615; 85025; 99214

== ENCOUNTER 2022-01-19 11:48 | Emergency (ER) | payer OTHER, MEDICARE, SELFPAY ==
[2022-01-19 12:00] VITALS: BP 188/75; PULSE 80; RESP 15; TEMP 36.5; O2SAT 95; BMI 26.4
[2022-01-19 12:29] VITALS: BP 137/74; PULSE 73; RESP 16; O2SAT 93
--- NOTE | 2022-01-19 12:52 | XRR_ITS ---
PROCEDURE INFORMATION: Exam: XR Chest Exam date and time: 01/19/2022 12:52 PM Age: 81 years old Clinical indication: Fatigue TECHNIQUE: Imaging protocol: XR of the chest. Views: 1 view. COMPARISON: CT abdomen pelvis w con* [id number] 04/04/2021 3:17 PM FINDINGS: Lungs: Subsegmental atelectasis or scarring at the left base. A calcified granuloma is noted in the mid left chest. A separate small nodular density adjacent to the left hilum likely reflects a calcified hilar lymph node or vessel on end. Pleural spaces: No pleural effusion. No pneumothorax. Heart/Mediastinum: The cardiac silhouette is likely exaggerated by AP technique and low lung volumes. No gross evidence of pneumomediastinum. Bones/joints: No gross fracture. XR/XR chest 1V portable [id number] IMPRESSION: No acute cardiopulmonary abnormality identified.
--- NOTE | 2022-01-19 12:52 | CTR_ITS ---
PROCEDURE INFORMATION: Exam: CT Head Without Contrast Exam date and time: 01/19/2022 12:52 PM Age: 81 years old Clinical indication: Headache and bilateral ear pain. Non-Hodgkin's lymphoma. TECHNIQUE: Imaging protocol: Computed tomography of the head without contrast. Radiation optimization: All CT scans at this facility use at least one of these dose optimization techniques: automated exposure control; mA and/or kV adjustment per patient size (includes targeted exams where dose is matched to clinical indication); or iterative reconstruction. COMPARISON: No relevant prior studies available. RADIATION DOSE METRICS: Total DLP (mGy-cm): 1033.59 FINDINGS: Brain: No acute intracranial hemorrhage. 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 No mass, mass effect or midline shift. There is no evidence of acute large vessel infarct. There is mild patchy subcortical and periventricular hypodensity, most commonly associated with small vessel ischemic disease of indeterminate age. The posterior fossa is grossly unremarkable; however, it is partially obscurred by beam hardening artifact. Cerebral ventricles: The ventricles are prominent, compatible with mild parenchymal volume loss. Paranasal sinuses: Mild mucosal thickening in the ethmoid air cells. Mastoid air cells: No mastoid effusion. Orbital cavity: The visualized orbits are unremarkable. Bones/joints: No acute fracture is seen. Soft tissues: No significant soft tissue swelling. CT/CT head wo con* [id number] IMPRESSION: 1. 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 2. Mild senescent changes as above. 3. No acute intracranial hemorrhage.
--- NOTE | 2022-01-19 12:54 | W.ED.HA ---
HPI - Headache General: Chief Complaint: Headache Stated Complaint: Head pain, started in a gland on the neck, dizzy Time Seen by Provider: 01/19/22 12:28 Source: patient and family () Limitations: no limitations History of Present Illness: Patient has multiple complaints including bilateral ear pain for approximately a week worse with chewing. He states he feels like his glands are swollen under his mandible. 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 Patient has chronic pain and takes tramadol every 6-8 hours. According to the , she increase the tramadol to every 4-5 hours 3 days ago. However, he started having occasional hallucinations since increasing the tramadol. Patient has been on tramadol chronically for chronic pain. Patient denies any fever or chills. he denies any shortness of breath or chest pain. He denies any abdominal pain. See oncology note from couple months ago. Patient also has complaints of poor electronic induction hardener at times. However, he is able to use his arms and hands otherwise normally. Patient does use a cane to walk. Patient reportedly had garbled speech 2 days ago but no problems with speech since then. Patient quit smoking years ago. Associated symptoms: Reports malaise; Deny chest pain, diaphoresis, fever(s), nausea, rash or vomiting Treatments prior to arrival: other (Tramadol) Review of Systems Const: Reports: fatigue and malaise; Denies: fever(s), chills, body aches or diaphoresis Eyes: Denies: change in vision ENMT: Reports: ear or mastoid pain (Bilaterally); Denies: throat pain, ear discharge, tinnitus or nasal congestion Card: Denies: chest pain, palpitations or edema Resp: Denies: dyspnea, productive cough, non-productive cough or wheezing GI: Denies: abdominal pain, nausea, vomiting or diarrhea : Denies: flank pain or dysuria Musc: Denies: neck pain, back pain, extremity pain or extremity swelling Skin/Breast: Denies: rash or pruritus Neuro: Reports: headache(s) and other (Poor electronic induction hardener at times.); Denies: numbness in extremities Psych: Reports: other (Occasional visual hallucinations after taking increased frequency tramadol); Denies: anxiety Fady/Lymph: Denies: enlarged lymph nodes PFSH ED PFSH: Medical History Contrast media allergy Diabetes Hypertension Lymphoma Muscle tension headache Neck muscle strain Surgical History H/O arthroscopy of shoulder RIGHT H/O splenectomy History of cholecystectomy Social History Second hand smoke exposure: No Alcohol intake: never Caregiver/support person: Yes Lives independently: Yes Household members: spouse History of recent travel: No Physical Exam Const: COMMON NORMALS: no acute distress, patient oriented x3, no limitations and well nourished GENERAL APPEARANCE: cooperative HENMT: COMMON NORMALS: normocephalic, atraumatic, external ears normal, EAC's normal and TM's normal bilaterally HEAD & SCALP: normocephalic and atraumatic FACE & SINUS: normal facial exam EXTERNAL EAR: Yes external ears normal EXTERNAL AUDITORY CANAL: EAC's normal TYMPANIC MEMBRANE: TM's normal bilaterally OTHER: bilat hearing aids Eye: COMMON NORMALS: EOMs intact bilaterally Neck/C-Spine: COMMON NORMALS: full ROM, no lymphadenopathy, supple and no meningeal signs GENERAL: Yes normal visual inspection Lymph: LYMPHATIC: no lymphadenopathy noted Chest: COMMONS NORMALS: normal inspection of the chest and normal palpation of entire chest wall CHEST: No Ecchymosis present and No rash Resp: COMMON NORMALS: normal respiratory effort, No retractions and clear to auscultation bilaterally EFFORT & INSPECTION: No respiratory distress AUSCULTATION: clear to auscultation bilaterally Cardio: COMMON NORMALS: regular rate, regular rhythm and Peripheral pulses 2+ throughout JUGULAR VENOUS DISTENTION: no JVD RATE: regular rate RHYTHM: regular rhythm PERIPHERAL PULSES: Peripheral pulses 2+ throughout GI: COMMON NORMALS: Normal to inspection, nondistended, normoactive bowel sounds present and non-tender : COMMON NORMALS: Yes no CVA tenderness BLADDER/KIDNEY EXAM: Yes no CVA tenderness Back/Pelvis: COMMON NORMALS: no CVA tenderness Extremity: COMMON NORMALS: normal to inspection, full ROM and capillary refill normal Neuro: COMMON NORMALS: patient oriented x3, CN's II-XII intact bilaterally, no focal motor deficits and no sensory deficits noted MENINGEAL SIGNS: Yes no meningeal signs MOTOR EXAM: 5/5 motor strength present throughout OTHER: No focal deficits. Strength 5/5 bilaterally. Cable Layer strength 5 out of 5 bilaterally. Psych: COMMON NORMALS: mental status grossly normal, Normal thought process present (No active hallucinations.) and cooperative THOUGHT PROCESS: Normal thought process present (No active hallucinations.) Skin: COMMON NORMALS: no rashes or lesions noted and no wounds GENERAL SKIN EXAM: no rashes or lesions noted Course Vital Signs: Vital signs: Vital Signs Temperature 97.7 F 01/19/22 12:00 Pulse Rate 70 01/19/22 14:12 Respiratory Rate 20 H 01/19/22 14:12 Blood Pressure 149/71 01/19/22 14:12 Pulse Oximetry 94 01/19/22 14:12 MDM - Headache Medical Decision Making Suspect hallucinations are likely due to the increase tramadol dose. Hallucinations were not occurring until increased dose of tramadol started. 1438: Patient is feeling well now. He denies any dizziness or hallucinations. He states he would like a pain pill before he goes, since he is due for tramadol now. He denies any headache at this time. His thrombocytopenia is chronic. Lab Data I reviewed the patient's lab results. Thrombocytopenia is chronic. : 01/19/22 13:05 01/19/22 13:05 Radiology Impressions Chest X-Ray 01/19/22 12:52 IMPRESSION: No acute cardiopulmonary abnormality identified. Head CT 01/19/22 12:52 IMPRESSION: 1. 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 2. Mild senescent changes as above. 3. No acute intracranial hemorrhage. Laboratory Results WBC 14.4 10^3/uL (4.0-10.0) H 01/19/22 13:05 RBC 4.61 10^6/uL (4.1-5.3) 01/19/22 13:05 Hgb 14.5 g/dL (11.7-16.6) 01/19/22 13:05 Hct 43.0 % (42.0-52.0) 01/19/22 13:05 MCV 93.3 fl (80-94) 01/19/22 13:05 MCH 31.5 pg (28.0-34.0) 01/19/22 13:05 MCHC 33.7 g/dL (30.0-36.0) 01/19/22 13:05 RDW 12.0 % (12.1-15.1) L 01/19/22 13:05 Plt Count 52 10^3/cmm (130-400) L 01/19/22 13:05 MPV Not Reportable 01/19/22 13:05 Neut % (Auto) 61.9 % 01/19/22 13:05 Lymph % (Auto) 27.5 % 01/19/22 13:05 [place] % (Auto) 8.1 % 01/19/22 13:05 Eos % (Auto) 1.4 % 01/19/22 13:05 Baso % (Auto) 0.5 % 01/19/22 13:05 Neut # (Auto) 8.90 10^3/uL (1.8-7.7) H 01/19/22 13:05 Lymph # (Auto) 4.0 10^3/uL (0.8-4.8) 01/19/22 13:05 [place] # (Auto) 1.2 10^3/uL (0.2-0.9) H 01/19/22 13:05 Eos # (Auto) 0.2 10^3/uL (0.0-0.8) 01/19/22 13:05 Baso # (Auto) 0.1 10^3/uL (0.0-0.1) 01/19/22 13:05 Nucleated RBC % (auto) 0 % 01/19/22 13:05 Nucleated RBCs # 0.0 /100WBC 01/19/22 13:05 Sodium 129 mmol/L (136-145) L 01/19/22 13:05 Potassium 4.9 mmol/L (3.5-5.1) 01/19/22 13:05 Chloride 94 mmol/L (98-107) L 01/19/22 13:05 Carbon Dioxide 22 mmol/L (22-29) 01/19/22 13:05 Anion Gap 17.9 (5-19) 01/19/22 13:05 BUN 21 mg/dL (8-23) 01/19/22 13:05 Creatinine 1.1 mg/dL (0.7-1.2) 01/19/22 13:05 GFR Calculation Not Reportable 01/19/22 13:05 Glucose 341 mg/dL (65-115) H 01/19/22 13:05 Calculated Osmolality 284 mOsm/kg (285-295) L 01/19/22 13:05 Lactate 1.2 mmol/L (0.5-2.2) 01/19/22 13:05 Calcium 9.9 mg/dL (8.5-10.5) 01/19/22 13:05 Total Bilirubin 0.3 mg/dL (0.15-1.2) 01/19/22 13:05 AST 25 U/L (0-40) 01/19/22 13:05 ALT 20 U/L (0-41) 01/19/22 13:05 Alkaline Phosphatase 117 IU/L (40-130) 01/19/22 13:05 Total Protein 7.6 g/dL (6.6-8.7) 01/19/22 13:05 Albumin 3.6 g/dL (3.5-5.2) 01/19/22 13:05 Globulin 4.0 g/dL (1.3-4.6) 01/19/22 13:05 Urine Color Yellow (Yellow) 01/19/22 13:27 Urine Appearance Clear (CLEAR) 01/19/22 13:27 Urine pH 5 (5-7) 01/19/22 13:27 Ur Specific [place] 1.025 (1.005-1.030) 01/19/22 13:27 Urine Protein 1+ (Negative) H 01/19/22 13:27 Urine Glucose (UA) 4+ (Normal) H 01/19/22 13:27 Urine Ketones 1+ (Negative) H 01/19/22 13:27 Urine Blood 2+ (Negative) H 01/19/22 13:27 Urine Nitrate Negative (Negative) 01/19/22 13:27 Urine Bilirubin Neg (Negative) 01/19/22 13:27 Urine Urobilinogen Norm mg/dL (Negative) 01/19/22 13:27 Ur Leukocyte Esterase Negative (Negative) 01/19/22 13:27 Urine RBC Rare /hpf (0-2) 01/19/22 13:27 Urine WBC Rare /hpf (0-5) 01/19/22 13:27 Ur Squamous Epith Cells Rare /hpf (0-5) 01/19/22 13:27 Amorphous Sediment Not Reportable 01/19/22 13:27 Urine Bacteria Trace /hpf (NONE) 01/19/22 13:27 SARS-CoV-2 Ag (Rapid) Negative (Negative) 01/19/22 13:05 Imaging Data CXR: I personally reviewed and interpreted this imaging study as follows: My impression: Unchanged perihilar lymphadenopathy from 10/12/2014. Otherwise nothing acute. Radiologist's impression: [address] [address] XRay Report Signed Patient: Sumit Abel Unit #: [id number] : [id number] Age/Sex: 81 / M ADM Date: 01/19/22 Loc: ER Room/Bed: Attending Dr: Ordering Provider/Ordering MD: Chris Merino MD Date of Service: 01/19/22 Procedure(s): XR chest 1V portable [id number] Accession Number(s): [id number] Report Number: [id number] PROCEDURE INFORMATION: Exam: XR Chest Exam date and time: 01/19/2022 12:52 PM Age: 81 years old Clinical indication: Fatigue TECHNIQUE: Imaging protocol: XR of the chest. Views: 1 view. COMPARISON: CT abdomen pelvis w con* [id number] 04/04/2021 3:17 PM FINDINGS: Lungs: Subsegmental atelectasis or scarring at the left base. A calcified granuloma is noted in the mid left chest. A separate small nodular density adjacent to the left hilum likely reflects a calcified hilar lymph node or vessel on end. Pleural spaces: No pleural effusion. No pneumothorax. Heart/Mediastinum: The cardiac silhouette is likely exaggerated by AP technique and low lung volumes. No gross evidence of pneumomediastinum. Bones/joints: No gross fracture. XR/XR chest 1V portable [id number] IMPRESSION: No acute cardiopulmonary abnormality identified. ? Dictated By: Delio Cao Signed By: Delio Cao Signed Date/Time: 01/19/[address] Head: Radiologist's impression: Exam: CT Head Without Contrast Exam date and time: 01/19/2022 12:52 PM Age: 81 years old Clinical indication: Headache and bilateral ear pain. Non-Hodgkin's lymphoma. TECHNIQUE: Imaging protocol: Computed tomography of the head without contrast. Radiation optimization: All CT scans at this facility use at least one of these dose optimization techniques: automated exposure control; mA and/or kV adjustment per patient size (includes targeted exams where dose is matched to clinical indication); or iterative reconstruction. COMPARISON: No relevant prior studies available. RADIATION DOSE METRICS: Total DLP (mGy-cm): 1033.59 FINDINGS: Brain: No acute intracranial hemorrhage. 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 No mass, mass effect or midline shift. There is no evidence of acute large vessel infarct. There is mild patchy subcortical and periventricular hypodensity, most commonly associated with small vessel ischemic disease of indeterminate age. The posterior fossa is grossly unremarkable; however, it is partially obscurred by beam hardening artifact. Cerebral ventricles: The ventricles are prominent, compatible with mild parenchymal volume loss. Paranasal sinuses: Mild mucosal thickening in the ethmoid air cells. Mastoid air cells: No mastoid effusion. Orbital cavity: The visualized orbits are unremarkable. Bones/joints: No acute fracture is seen. Soft tissues: No significant soft tissue swelling. CT/CT head wo con* [id number] IMPRESSION: 1. 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 2. Mild senescent changes as above. 3. No acute intracranial hemorrhage. ? Dictated By: Delio Cao Signed By: Delio Cao Signed Date/Time: 01/19/22 1422 Discharge Plan Discharge Patient Disposition: Home Clinical Impression: Muscle tension headache, Non-Hodgkin's lymphoma in adult, Chronic idiopathic thrombocytopenia Condition: Stable Prescriptions: New hydrocodone-acetaminophen 5-325 mg tablet 1 tab PO Q6H PRN (Reason: pain) Qty: 20 0RF Rx Instructions: As needed for severe pain. No Action celecoxib 100 mg capsule 100 mg PO BID Qty: 30 1RF baclofen 10 mg tablet 10 mg PO BID Qty: 30 0RF tramadol 50 mg tablet 50 mg PO Q8H PRN (Reason: pain) Qty: 30 0RF tamsulosin 0.4 mg Capsule 0.4 mg PO DAILY 0RF amlodipine 10 mg Tablet 10 mg PO BID 0RF gabapentin 300 mg Capsule 300 mg PO DAILY 0RF lisinopril 40 mg Tablet 40 mg PO DAILY 0RF triamcinolone acetonide 0.05 % Ointment 1 applic TOPICAL BID 0RF cholecalciferol (vitamin D3) 50 mcg (2,000 unit) Tablet 50 mcg PO DAILY 0RF omega 7-kxh-eth-fish oil [Fish Oil] 1,000 mg (120 mg-180 mg) Capsule 1 cap PO BID 0RF Novolin 70/30 U-100 Insulin See Rx Instructions .ROUTE .COMPLEX 0RF Rx Instructions: take 25 units in the morning and 20 units at night Discharge Orders: Discharge ED (Routine); Ordered 01/19/22 Ordered By: Chris Merino Referrals: Myron Lombardi, [Primary Care Provider] - Discharge Diet: Advance as tolerated Discharge Activity: Increase activity as tolerated Patient Instructions: Acute Headache (ED), Opioid Safety Activity Restrictions/Additional Instructions: Discontinue tramadol. Tramadol is likely causing her hallucinations. If the hallucinations continue after 48 hours follow-up with your doctor for further testing. Follow-up with your doctor tomorrow for any additional follow-up instructions. May take hydrocodone every 6 hours as needed for severe pain. Otherwise, take Tylenol for pain. Covid test was negative. Coding Level of Care Code ED Agricultural Plow Operator for Fatimah Fwanh Exam Comprehensive
[2022-01-19 13:13] VITALS: BP 135/81; PULSE 71; RESP 16; O2SAT 94
[2022-01-19 13:20] LABS: Basophils # 0.1 10^3/uL (0.0-0.1); Basophils % 0.5 %; Eosinophils # 0.2 10^3/uL (0.0-0.8); Eosinophils % 1.4 %; Hemoglobin 14.5 g/dL (11.7-16.6); Lymphocytes % 27.5 %; Mean Corpuscular HGB Conc 33.7 g/dL (30.0-36.0); Mean Corpuscular Hemoglobin 31.5 pg (28.0-34.0); Mean Corpuscular Volume 93.3 fl (80-94); Monocytes # 1.2 10^3/uL (0.2-0.9); Monocytes % 8.1 %; Neutrophils % 61.9 %; Nucleated Red Blood Cells % 0 %; Platelet Count 52 10^3/cmm (130-400); Red Blood Count 4.61 10^6/uL (4.1-5.3); White Blood Count 14.4 10^3/uL (4.0-10.0)
[2022-01-19] MEDS: acetaminophen 325 mg Tablet 650 MG PO (13:24)
[2022-01-19 13:44] LABS: Lactate (Lactic Acid level) 1.2 mmol/L (0.5-2.2)
[2022-01-19 13:45] LABS: Alanine Aminotransferase 20 U/L (0-41); Albumin Level 3.6 g/dL (3.5-5.2); Alkaline Phosphatase 117 IU/L (40-130); Anion Gap 17.9 (5-19); Aspartate Amino Transferase 25 U/L (0-40); Blood Urea Nitrogen 21 mg/dL (8-23); Calcium 9.9 mg/dL (8.5-10.5); Carbon Dioxide 22 mmol/L (22-29); Chloride 94 mmol/L (98-107); Glucose 341 mg/dL (65-115); Osmolality Calculated 284 mOsm/kg (285-295); Potassium 4.9 mmol/L (3.5-5.1); Sodium 129 mmol/L (136-145); Total Bilirubin 0.3 mg/dL (0.15-1.2); Total Protein 7.6 g/dL (6.6-8.7)
[2022-01-19 13:54] LABS: Specific Gravity, Urine 1.025 (1.005-1.030); Urine Appearance Clear (CLEAR); Urine Color Yellow (Yellow); pH Urine 5 (5-7)
[2022-01-19 13:55] LABS: Bilirubin Urine Neg (Negative); Blood Urine 2+ (Negative); Glucose Urine UA 4+ (Normal); Ketones Urine 1+ (Negative); Leukocyte Esterase Urine Negative (Negative); Nitrate Urine Negative (Negative); Protein Urine 1+ (Negative); RBC Urine RARE /hpf (0-2); Urobilinogen Urine Norm (Negative)
[2022-01-19 13:56] LABS: SARS Covid-2 Antigen Negative (Negative)
[2022-01-19 13:56] LABS: Add Urine Culture? No; Bacteria Urine TRACE /hpf; Squamous Epithelial Cell Urine RARE /hpf (0-5); WBC Urine RARE /hpf (0-5)
[2022-01-19 14:12] VITALS: BP 149/71; PULSE 70; RESP 20; O2SAT 94
[2022-01-19] MEDS: HYDROcodone-acetaminophen 5-325 mg Tablet 1 TAB PO (15:00)
== END 2022-01-19 15:09 | disposition home or self-care (01) ==
PROVIDERS: Emergency Provider Family Medicine; PCP Emergency Medicine Emergency Medical Services
DX: G44.209 Tension-type headache, unspecified, not intractable (principal); C85.90 Non-Hodgkin lymphoma, unspecified, unspecified site; D69.3 Immune thrombocytopenic purpura; Z79.4 Long term (current) use of insulin; E11.9 Type 2 diabetes mellitus without complications; I10 Essential (primary) hypertension; Z20.822 Contact with and (suspected) exposure to COVID-19
CPT/HCPCS: 70450; 71045; 80053; 81001; 83605; 85025; 87040; 87426; 99283

== ENCOUNTER 2022-02-06 06:48 | Outpatient (RCR) | payer OTHER, MEDICARE, SELFPAY ==
--- NOTE | 2022-01-26 11:46 | ONC FU_ITS ---
Dr. Dixon Patient Follow-Up Note Patient: Sumit Abel Unit #: [id number]: [id number] Dicatated By: Robin Dixon M.D.Date of Visit:Jan 23, 2022 Onc Med Follow-up/Prog Note Chief Complaint: Lymphoma/autoimmunue thrombocytopenia. 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 His lymphoma was initially diagnosed in 1998. I did not receive complete records regarding the specific histologic subtype. He had associated autoimmune thrombocytopenia. The lymphoma had been in clinical remission following chemotherapy. He continued, though, to have problems with the thrombocytopenia, which was resistant to standard therapies and to splenectomy. Eventually, he did respond to treatment with danazol. I had seen him initially in May of 2011. His platelet count was moderately decreased, though adequate, at 72,000. Restaging PET/CT on 07/04/2011 showed minimally increased activity in scattered, small mediastinal lymph nodes, maximum SUV 4.6, consistent with low-grade lymphoma versus reactive adenopathy,. Activity in cervical lymph nodes was felt to be probably reactive. His repeat bone marrow aspiration/biopsy on 07/09/2011 showed normal cellular bone marrow at 60% cellularity. There were normal to mildly increased megakaryocytes. There were no overt dysplastic changes. There was no evidence of lymphoma or other infiltrative process in the bone marrow. The chromosome analysis was normal. With those findings, he continued observation/expectant management. As of his visit in November 2012 he appeared stable clinically. Platelet count at that time was 97,000. He had then failed to return for further follow-up until December 2019 when he came in complaining of deep fatigue and weakness . His platelet count was moderately decreased at 68,000 with hemoglobin normal at 14.6 g and white blood cell count 10,000. Sed rate was basically normal at 16 mm/hour. Comprehensive metabolic profile was unremarkable except for elevated nonfasting blood sugar, and his LDH was normal at 143 U/L. His RUSTAM screening test was positive at 1:640. RUSTAM profile was unrevealing. With those findings, he continued expectant management. His other medical illnesses include hypertension, hyperlipidemia, and type 2 diabetes. He has associated peripheral neuropathy. 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 He has been followed by Dr. Ocasio. He has a past history of smoking up to 1 pack of cigarettes daily, but he quit smoking in 1964. INTERIM HISTORY: On 04/04/2021 he was seen in the emergency room with back pain on the right side. A specific cause for the pain was not determined. His laboratory studies showed a slightly elevated white blood cell count 11,800. Hemoglobin was normal at 15 g. Platelet count remained adequate at 56,000. His CT abdomen/pelvis showed enlarged appendix without adjacent inflammation and with no evidence for abscess or perforation. There was no evidence of renal obstruction. He was noted to have several small mesenteric lymph nodes, the largest measuring 10 mm in the right abdomen anterior to the kidney. There were small retroperitoneal lymph nodes and aortocaval nodes and right lower quadrant lymph nodes. Also noted with some mild mesenteric panniculitis. The lymph nodes were noted to be slightly greater in size compared to the prior study in 2012. Restaging PET/CT on 05/11/2021 showed small, scattered lymph nodes from the level of the head/neck to the level of the upper abdomen with mild FDG activity, suggestive of active lymphoma. This included bilateral jugulodigastric nodes, more prominent on the right than the left, measuring up to 1 cm with SUV 4.5, FDG avid right axillary lymph nodes and multiple positive mediastinal lymph nodes. An index mediastinal lymph node in the right paratracheal area measuring 1.3 cm with SUV 4.4. Small mesenteric and portal nodes were noted to be minimally FDG positive. There were no findings for extranodal disease. As the extent of the adenopathy did not appear to be significant enough to be symptomatic, I opted to continue with expectant management. At his follow-up visit on 10/29/2021 he reported increased fatigue and generalized itching. His platelet count had decreased to 31,000. His serum protein electrophoresis and IgM monoclonal protein which quantitated at 0.8 g/dL. With those findings, he underwent bone marrow aspiration/biopsy on 11/05/2021. 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 Lymphoplasmacytic lymphoma was favored, but marginal zone lymphoma with paraprotein production and plasmacytic differentiation was also felt to be possible. Restaging PET/CT on 11/30/2021 showed small, shotty lymph nodes from the level of the head and neck to the level of the abdomen, but with resolution of FDG activity compared to the prior study from April 2021. There were no findings of extranodal disease. With those findings, he was recommended to continue expectant management, as it did not appear that the lymphoma was symptomatic. He is seen today for an unplanned visit. He had been in the emergency room on Thursday complaining of headache. Noncontrast head CT showed lacunar infarcts of undetermined age within or adjacent to the basal ganglia bilaterally. There were no other significant findings. He was given a prescription for hydrocodone 5/APAP 325 to take as needed. He says the medication is not helping. He continues to have constant pain, mainly on the left side of his face, in the parotid area and around his eyes. It also affects the top and back of his head. It started 2 weeks ago and has just continued to get worse. He has had very limited activity. He says that for about a week he could barely walk. His ECOG score is 3. His appetite is not very good. He has had a weight loss of close to 15 pounds. He does not have fever or night sweats. He has had some visual blurring, and he has sinus symptoms. He has occasional epistaxis. He has a little bit of sore throat. He does not complain of cough. He has had some spells of shortness of breath, but overall his breathing has been pretty good. He has not been having chest pain. He has no GI complaints other than his bowel function has been somewhat inconsistent. He has been having difficulty voiding, but he does tend to forget to take his tamsulosin. He also has neuropathy with pain in both legs. Medications: amLODIPine Besylate 1 Tablet (of 10 mg) Oral daily, Folic Acid 1 (1 mg) Tablet Oral daily, Garlic 1 Tablet Oral daily, HYDROcodone-Acetaminophen (5-325 mg) Tablet Oral Take as Directed, Lisinopril 1 (40 mg) Tablet Oral daily, Magnesium 1 (250 mg) Tablet Oral daily, Neurontin 1 (400 mg) Capsule Oral t.i.d., NovoLIN 70/30 (70-30 %) Subcutaneous Take as Directed, Super B Complex Maxi 1 Tablet Oral daily, Tamsulosin HCl 1 Capsule (of 0.4 mg) Oral at bedtime, Taurine 1 Capsule (of 500 mg) Oral daily, Triamcinolone Acetonide 1 (0.5 %) Cream Topical daily, Vitamin D3 1 (400 Units) Tablet Oral daily Allergies: CT Dye and MetFORMIN HCl. Vital Signs: Performed on Jan 23, 2022 11:27 Height - 69.50 in Weight - 166.4 lbs (LOW) BSA - 1.92 sq.m BMI - 24.22 Temperature - 97.6 F (LOW) Pulse - 69 /min Respiration - 16 /min BP - 139/74 mm(hg) O2 Sat - 97 % Pain - 9 Fatigue - 8 Physical Examination: Constitutional - He appears somewhat weak generally, Eyes - Sclerae nonicteric. Conjunctivae clear, ENMT - No lesions noted in the oral cavity, Hematologic/Lymphatic - No cervical, clavicular, or axillary adenopathy noted, Respiratory - Lungs are clear with good air movement bilaterally, Cardiovascular - Heart rythm is regular. There is a III/ systolic murmur, loudest at the base. There is no gallop or rub noted, Abdomen - Mildly distended but soft. Liver is not enlarged. There is no abdominal mass or ascites noted. There is no inguinal adenopathy, Extremities - There are venous stasis changes in both legs, but there is no edema, Neurologic - No focal neurologic deficits noted. Lab/Imaging: His laboratory studies from 01/19/2022 included CBC showing hemoglobin 14.5 g, white blood cell count 14,400, and platelet count 52,000. The differential showed 61% neutrophils, 27% lymphocytes, 8% monocytes, and 1% eosinophils. Comprehensive metabolic profile was unremarkable except for slightly low sodium at 129 mmol/L and elevated nonfasting blood sugar. Problem List: 1. Low-grade non-Hodgkin's lymphoma, stage IV, initially diagnosed in 1998. The lymphoma was felt to be in clinical remission following chemotherapy treatment. 2. 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 It eventually did show some response to treatment with danazol. 3. He has symptoms suggestive of other autoimmune disease, including Sjogren's syndrome and Raynaud's disease, and he has had a positive RUSTAM at 1:640 titer. 4. He underwent TURBT for superficial bladder cancer in 2012. 5. Hypertension. 6. Hyperlipidemia. 7. Type 2 diabetes with peripheral neuropathy. 8. Chronic kidney disease. 9. Benign prostatic hypertrophy. 10. He has history of pulmonary histoplasmosis. Problems Addressed with this Encounter and Plan: 1. Patient with low-grade non-Hodgkin's lymphoma, stage IV, initially diagnosed in 1998. He had associated autoimmune thrombocytopenia. The lymphoma had been in clinical remission following chemotherapy treatment. His CT abdomen/pelvis on 04/04/2021 showed slight increase in small mesenteric and retroperitoneal lymph nodes, suggesting possible progression of the lymphoma. That study also showed evidence of mesenteric misting, possibly due to lymphoma. Restaging PET/CT on 05/11/2021 showed small mildly FDG positive lymph nodes from the level of the head/neck to the level of the upper abdomen, felt to be consistent with active lymphoma. There is no evidence of extranodal disease. As the adenopathy did not appear extensive enough to be symptomatic, he continued on expectant management. As of his follow-up visit in October 2021 he had experienced some decline in his performance status. His platelet count had dropped to 31,000, and he had a detectable IgM monoclonal protein quantitating at 0.8 g/dL. His repeat bone marrow aspiration/biopsy on 11/05/2021 showed involvement with small B-cell lymphoma with plasmacytic features, estimated at 20 to 30% of the marrow cellularity. A lymphoplasmacytic lymphoma was favored, though marginal zone lymphoma with paraprotein production and plasmacytic differentiation was noted to also be a possibility. Restaging PET/CT on 11/30/2021 showed small, shotty lymph nodes extending from the level of the head and neck to the level of the abdomen, but with resolution of FDG activity compared to the study from April 2021. With those findings, he was recommended to continue expectant management for the lymphoma, as there appeared to be no definite indication for treatment. He comes in now with recent onset of severe pain in the left facial area. I am not entirely certain of the cause, but at this point it appears to be most consistent with trigeminal neuralgia. He has already been taking gabapentin, and I will have him try increasing the dosage to 800 mg up to 3 times daily, as tolerated. In addition, he will be given a prescription for immediate release oxycodone 10 mg to take as needed. He is also given instructions for a bowel regimen. I will schedule him for a follow-up visit in 2 weeks. 2. He has had a significantly elevated RUSTAM titer, consistent with his autoimmune thrombocytopenia. However, there appeared to be no indication for treatment, as he has had no other overt symptoms of systemic lupus. Signed By: Robin Dixon M.D. <<Signature on File>>
--- NOTE | 2022-02-07 08:26 | ONC FU_ITS ---
[facility] Progress Note Patient: Sumit Abel Unit #: [id number]: [id number] Dicatated By: Belle Leos N.P.Date of Visit:Feb 06, 2022 Onc MED Follow-up/Prog Note Chief Complaint: Lymphoma/autoimmunue thrombocytopenia. 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 His lymphoma was initially diagnosed in 1998. I did not receive complete records regarding the specific histologic subtype. He had associated autoimmune thrombocytopenia. The lymphoma had been in clinical remission following chemotherapy. He continued, though, to have problems with the thrombocytopenia, which was resistant to standard therapies and to splenectomy. Eventually, he did respond to treatment with danazol. I had seen him initially in May of 2011. His platelet count was moderately decreased, though adequate, at 72,000. Restaging PET/CT on 07/04/2011 showed minimally increased activity in scattered, small mediastinal lymph nodes, maximum SUV 4.6, consistent with low-grade lymphoma versus reactive adenopathy,. Activity in cervical lymph nodes was felt to be probably reactive. His repeat bone marrow aspiration/biopsy on 07/09/2011 showed normal cellular bone marrow at 60% cellularity. There were normal to mildly increased megakaryocytes. There were no overt dysplastic changes. There was no evidence of lymphoma or other infiltrative process in the bone marrow. The chromosome analysis was normal. With those findings, he continued observation/expectant management. As of his visit in November 2012 he appeared stable clinically. Platelet count at that time was 97,000. He had then failed to return for further follow-up until December 2019 when he came in complaining of deep fatigue and weakness . His platelet count was moderately decreased at 68,000 with hemoglobin normal at 14.6 g and white blood cell count 10,000. Sed rate was basically normal at 16 mm/hour. Comprehensive metabolic profile was unremarkable except for elevated nonfasting blood sugar, and his LDH was normal at 143 U/L. His RUSTAM screening test was positive at 1:640. RUSTAM profile was unrevealing. With those findings, he continued expectant management. His other medical illnesses include hypertension, hyperlipidemia, and type 2 diabetes. He has associated peripheral neuropathy. 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 He has been followed by Dr. Ocasio. He has a past history of smoking up to 1 pack of cigarettes daily, but he quit smoking in 1964. INTERIM HISTORY: On 04/04/2021 he was seen in the emergency room with back pain on the right side. A specific cause for the pain was not determined. His laboratory studies showed a slightly elevated white blood cell count 11,800. Hemoglobin was normal at 15 g. Platelet count remained adequate at 56,000. His CT abdomen/pelvis showed enlarged appendix without adjacent inflammation and with no evidence for abscess or perforation. There was no evidence of renal obstruction. He was noted to have several small mesenteric lymph nodes, the largest measuring 10 mm in the right abdomen anterior to the kidney. There were small retroperitoneal lymph nodes and aortocaval nodes and right lower quadrant lymph nodes. Also noted with some mild mesenteric panniculitis. The lymph nodes were noted to be slightly greater in size compared to the prior study in 2012. Restaging PET/CT on 05/11/2021 showed small, scattered lymph nodes from the level of the head/neck to the level of the upper abdomen with mild FDG activity, suggestive of active lymphoma. This included bilateral jugulodigastric nodes, more prominent on the right than the left, measuring up to 1 cm with SUV 4.5, FDG avid right axillary lymph nodes and multiple positive mediastinal lymph nodes. An index mediastinal lymph node in the right paratracheal area measuring 1.3 cm with SUV 4.4. Small mesenteric and portal nodes were noted to be minimally FDG positive. There were no findings for extranodal disease. As the extent of the adenopathy did not appear to be significant enough to be symptomatic, I opted to continue with expectant management. At his follow-up visit on 10/29/2021 he reported increased fatigue and generalized itching. His platelet count had decreased to 31,000. His serum protein electrophoresis and IgM monoclonal protein which quantitated at 0.8 g/dL. With those findings, he underwent bone marrow aspiration/biopsy on 11/05/2021. 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 Lymphoplasmacytic lymphoma was favored, but marginal zone lymphoma with paraprotein production and plasmacytic differentiation was also felt to be possible. Restaging PET/CT on 11/30/2021 showed small, shotty lymph nodes from the level of the head and neck to the level of the abdomen, but with resolution of FDG activity compared to the prior study from April 2021. There were no findings of extranodal disease. With those findings, he was recommended to continue expectant management, as it did not appear that the lymphoma was symptomatic. He was seen 01/23/21 for an unplanned visit. He had been in the emergency room on Thursday complaining of headache. Noncontrast head CT showed lacunar infarcts of undetermined age within or adjacent to the basal ganglia bilaterally. There were no other significant findings. He was given a prescription for hydrocodone 5/APAP 325 to take as needed which did not help. He was prescribed Oxycodone during this visit. He was also instructed to increase his Gabapentin to 800mg TID. He returns to the clinic today with a continued headache. He states that his left side of his head and is a sharp shooting pain that occurs on and off. The pain affects the entire left side of his face especially around his left eye and left cheek and behind his left ear. His gabapentin was increased at last visit to 800 mg 2-3 times a day but patient did not increase it partly because he did not understand that it was also to treat his headache pain. His appetite has only been fair. He has had an approximate 15 pound weight loss since November. He denies any sinus drainage or mouth sores. No sore throat. He has had no GI problems. He occasionally has some urinary problems but he forgets his tamsulosin quite often. Review Of Symptoms: See above. 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 Medications: Acetaminophen Tablet Oral PRN amLODIPine Besylate 1 Tablet (of 10 mg) Oral daily Folic Acid 1 (1 mg) Tablet Oral daily Garlic 1 Tablet Oral daily Lisinopril 1 (40 mg) Tablet Oral daily Magnesium 1 (250 mg) Tablet Oral daily Neurontin 1 (400 mg) Capsule Oral t.i.d. NovoLIN 70/30 (70-30 %) Subcutaneous Take as Directed oxyCODONE HCl 1 Tablet (of 10 mg) Oral q 6 hours PRN Super B Complex Maxi 1 Tablet Oral daily Tamsulosin HCl 1 Capsule (of 0.4 mg) Oral at bedtime Taurine 1 Capsule (of 500 mg) Oral daily Triamcinolone Acetonide 1 (0.5 %) Cream Topical daily Vitamin D3 1 (400 Units) Tablet Oral daily Family History: Mr. Abel's mother at age 67: heart disease. Mr. Abel's father at age 25: truck accident. Mr. Abel has 1 brother who is : colon cancer. He has 1 sister who is : colon cancer. Father in the truck accident at age 25. Mother at age 67 with heart disease and tick fever. A brother and a half sister both had colon cancer. Social History: Mr. Abel is . Mr. Abel quit smoking 56 years ago but had smoked 1.0 pack/day for 6 years. He is a former drinker. He has indicated exposure to the following products: cigarettes. He had previously smoked 1 pack of cigarettes daily, but he quit in 1965. He had social alcohol use in the past. He quit drinking about the same time. Physical Examination: Performed on Feb 06, 2022 10:44: Height - 69.50 in, Weight - 167.6 lbs (HIGH), BSA - 1.93 sq.m, BMI - 24.40, Temperature - 98.5 F, Pulse - 77 /min, Respiration - 18 /min, BP - 112/57 mm(hg), O2 Sat - 97 %, Pain - 3, and Fatigue - 9. Performance Status: 2 - Ambulatory/capable of all self-care, unable to perform any work activities. Up and about more than 50% of waking hours. (ECOG) Constitutional Alert, cooperative, oriented. Mood and affect appropriate. Appears close to chronological age. Well nourished. Well developed. Head Normocephalic; no scars. Hematologic/Lymphatic No petechiae or purpura. Palpable lymph node left side of neck Respiratory Lungs are clear to auscultation without rhonchi or wheezing. Cardiovascular Regular rate and rhythm of heart without murmurs, gallops or rubs. Abdomen Non-tender, non-distended, no masses, ascites or hepatosplenomegaly. Good bowel sounds. No guarding or rebound tenderness. Extremities No visible deformities, no cyanosis, clubbing or edema. Pulses 3+ and equal bilaterally. Musculoskeletal No tenderness or swelling, normal range of motion without obvious weakness. Psychiatric Alert and oriented times three. Coherent speech. Verbalizes understanding of our discussions today. Laboratory: Test performed on Dec 05, 2021 09:17 LDH (Total) 199 U/L Sodium 140 mmol/L Potassium 4.7 mmol/L Chloride 105 mmol/L CO2 20 mmol/L Anion Gap 19.7 BUN 17 mg/dL Creatinine 1.1 mg/dL Cr Clearance (Est) 59.02 mL/min Glucose 190 mg/dL Osmolality - Calculated 297 mOsm/kg Calcium 8.5 mg/dL Protein, Total 7.4 g/dL Albumin 4.1 g/dL Globulin 3.3 g/dL Bilirubin, Total 0.4 mg/dL ALT (SGPT) 15 U/L AST (SGOT) 29 U/L Alkaline Phosphatase 98 IU/L WBC 10.1 10 3/uL RBC 4.17 10 6/uL HGB 13.2 g/dL HCT 40.4 % MCV 96.9 fl MCH 31.7 pg MCHC 32.7 g/dL RDW 12.9 % Platelet Count 58 10 3/cmm MPV 14.5 fL Neutrophils 6.22 10 3/uL Lymphocytes 3.1 10 3/uL Monocytes 0.6 10 3/uL Eosinophils 0.1 10 3/uL Basophils 0.1 10 3/uL Neutrophil % 61.4 % Lymphocyte % 30.7 % Monocyte % 5.8 % Eosinophil % 1.1 % Basophils % 0.6 % NRBC % 0 % CBC Slide Review Slide Review Perform SLIDE REVIEW AGREES WITH AUTOMATED RESULTS ST Test performed on Oct 30, 2021 14:55 ESR (Sed Rate) 48 mm/hr RUSTAM Titer > OR = 1:1280 Reference Range <1:40 Negative 1:40-1:80 Low Antibody Level >1:80 Elevated Antibody Level titer RUSTAM Pattern Nuclear, Discrete Nuclear Dots Abnormal Flag: A Nuclear dots (6-20 in number per cell) pattern is seen in primary biliary cholangitis (PBC), polymyositis/dermatomyositis, and other systemic autoimmune rheumatic diseases. AC-6,7: Discrete Nuclear Dots International Consensus on RUSTAM Patterns (https://doi.org/10.1515/xvmb-8420-4434) THIS TEST WAS PERFORMED AT: [facility] [address] [place] [address] ALFRED ROBLES DO,MPH RUSTAM POSITIVE RUSTAM IFA is a first line screen for detecting the presence of up to approximately 150 autoantibodies in various autoimmune diseases. A positive RUSTAM IFA result is suggestive of autoimmune disease and reflexes to titer and pattern. Further laboratory testing may be considered if clinically indicated. For additional information, please refer to http://education.Trellie/faq/TQM376 (This link is being provided for informational/ educational purposes only.) THIS TEST WAS PERFORMED AT: [facility] [address] [place] [id number] ALFRED ROBLES DO,MPH [place] Free Light Chains 356.2 mg/L Lambda Free Light Chains 18.6 mg/L [place]/Lambda Free Ratio 19.15 Test performed on Aug 21, 2021 11:53 U Creatinine (R) 93.14 mg/dL Albumin, SPE 4.1 g/dL A/G Ratio 31.03 Absolute Value [place] / Lambda Ratio 19.82 Absolute Value Lambda Light Chain 22.2 [place] Light Chain 439.9 Beta Globulin 0.6 g/dL Gamma Globulin 1.9 g/dL SPE Interpretation A restricted band is revealed (M Yonatan) migrating in the gamma globulin region. If not already requested, Immunofixation should be considered. Impression: 1. Low-grade non-Hodgkin's lymphoma, stage IV, initially diagnosed in 1998. The lymphoma was felt to be in clinical remission following chemotherapy treatment. 2. 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 It eventually did show some response to treatment with danazol. 3. He has symptoms suggestive of other autoimmune disease, including Sjogren's syndrome and Raynaud's disease, and he has had a positive RUSTAM at 1:640 titer. 4. He underwent TURBT for superficial bladder cancer in 2012. 5. Hypertension. 6. Hyperlipidemia. 7. Type 2 diabetes with peripheral neuropathy. 8. Chronic kidney disease. 9. Benign prostatic hypertrophy. 10. He has history of pulmonary histoplasmosis. Plan: 1. Patient with low-grade non-Hodgkin's lymphoma, stage IV, initially diagnosed in 1998. He had associated autoimmune thrombocytopenia. The lymphoma had been in clinical remission following chemotherapy treatment. His CT abdomen/pelvis on 04/04/2021 showed slight increase in small mesenteric and retroperitoneal lymph nodes, suggesting possible progression of the lymphoma. That study also showed evidence of mesenteric misting, possibly due to lymphoma. Restaging PET/CT on 05/11/2021 showed small mildly FDG positive lymph nodes from the level of the head/neck to the level of the upper abdomen, felt to be consistent with active lymphoma. There is no evidence of extranodal disease. As the adenopathy did not appear extensive enough to be symptomatic, he continued on expectant management. As of his follow-up visit in October 2021 he had experienced some decline in his performance status. His platelet count had dropped to 31,000, and he had a detectable IgM monoclonal protein quantitating at 0.8 g/dL. His repeat bone marrow aspiration/biopsy on 11/05/2021 showed involvement with small B-cell lymphoma with plasmacytic features, estimated at 20 to 30% of the marrow cellularity. A lymphoplasmacytic lymphoma was favored, though marginal zone lymphoma with paraprotein production and plasmacytic differentiation was noted to also be a possibility. Restaging PET/CT on 11/30/2021 showed small, shotty lymph nodes extending from the level of the head and neck to the level of the abdomen, but with resolution of FDG activity compared to the study from April 2021. Mr. Abel presents today accompanied by his with complaints of continued headache has been ongoing for the past 3 to 4 weeks. He was given oxycodone at last visit which seems to help at times but it is not lasting as long as it should. He was instructed to his gabapentin to 800 mg 3 times a day as tolerated the patient has not been doing that. He sometimes takes 300 mg on occasion. He sometimes forgets to take it and is also concerned about the side effects of the gabapentin. We discussed possibly being able to change medications to treat the headache pain with oxcarbazepine and baclofen which is the treatment of choice for trigeminal neuralgia but at this point it is felt that he would be better off staying on the gabapentin and increasing the dose. Patient is agreeing to try the higher dose over the next few days and if there is no improvement on 02/10/2022 he will return to the clinic for further evaluation. 2. He has had a significantly elevated RUSTAM titer, consistent with his autoimmune thrombocytopenia. However, there appeared to be no indication for treatment, as he has had no other overt symptoms of systemic lupus. Signed By: Belle Leos N.Perri. <<Signature on File>>
== END 2022-02-20 23:59 | disposition home or self-care (01) ==
LOC: ONCMED 06:48
PROVIDERS: PCP Emergency Medicine Emergency Medical Services; Visit Provider Nurse Practitioner Family
DX: Z08 Encounter for follow-up examination after completed treatment for malignant neoplasm (principal); Z85.72 Personal history of non-Hodgkin lymphomas; D69.3 Immune thrombocytopenic purpura; M35.00 Sjogren syndrome, unspecified; I73.00 Raynaud's syndrome without gangrene; I12.9 Hypertensive chronic kidney disease with stage 1 through stage 4 chronic kidney disease, or unspecified chronic kidney disease; E78.5 Hyperlipidemia, unspecified; E11.42 Type 2 diabetes mellitus with diabetic polyneuropathy; E11.22 Type 2 diabetes mellitus with diabetic chronic kidney disease; N18.9 Chronic kidney disease, unspecified; N40.0 Benign prostatic hyperplasia without lower urinary tract symptoms; Z87.09 Personal history of other diseases of the respiratory system; Z85.51 Personal history of malignant neoplasm of bladder; Z79.899 Other long term (current) drug therapy; Z92.21 Personal history of antineoplastic chemotherapy
CPT/HCPCS: 99214

== ENCOUNTER 2022-03-04 11:15 | Outpatient (RCR) | payer OTHER, SELFPAY ==
[2022-03-04 11:37] LABS: Basophils # 0.1 10^3/uL (0.0-0.1); Basophils % 0.7 %; Eosinophils # 0.6 10^3/uL (0.0-0.8); Eosinophils % 4.8 %; Hematocrit 38.2 % (42.0-52.0); Hemoglobin 12.4 g/dL (11.7-16.6); Lymphocytes # 5.3 10^3/uL (0.8-4.8); Lymphocytes % 40.8 %; Mean Corpuscular HGB Conc 32.5 g/dL (30.0-36.0); Mean Corpuscular Hemoglobin 30.4 pg (28.0-34.0); Mean Corpuscular Volume 93.6 fl (80-94); Mean Platelet Volume 12.5 fL (7.4-10.4); Monocytes # 1.1 10^3/uL (0.2-0.9); Monocytes % 8.6 %; Neutrophils % 44.6 %; Nucleated Red Blood Cells % 0 %; Platelet Count 97 10^3/cmm (130-400); Red Blood Count 4.08 10^6/uL (4.1-5.3); Red Cell Distribution Width 13.5 % (12.1-15.1)
[2022-03-04 11:57] LABS: Alanine Aminotransferase 15 U/L (0-41); Albumin Level 3.7 g/dL (3.5-5.2); Alkaline Phosphatase 134 IU/L (40-130); Anion Gap 12.7 (5-19); Aspartate Amino Transferase 20 U/L (0-40); Blood Urea Nitrogen 19 mg/dL (8-23); Calcium 9.5 mg/dL (8.5-10.5); Carbon Dioxide 24 mmol/L (22-29); Chloride 105 mmol/L (98-107); Globulin 3.7 g/dL (1.3-4.6); Glucose 128 mg/dL (65-115); Osmolality Calculated 288 mOsm/kg (285-295); Potassium 4.7 mmol/L (3.5-5.1); Sodium 137 mmol/L (136-145); Total Bilirubin 0.2 mg/dL (0.15-1.2); Total Protein 7.4 g/dL (6.6-8.7)
[2022-03-04 12:01] LABS: Lactate Dehydrogenase 147 U/L (135-225)
--- NOTE | 2022-03-08 10:55 | ONC FU_ITS ---
Dr. Dixon Patient Follow-Up Note Patient: Sumit Abel Unit #: [id number]: [id number] Dicatated By: Robin Dixon M.D.Date of Visit:Mar 04, 2022 Onc Med Follow-up/Prog Note Chief Complaint: Lymphoma/autoimmunue thrombocytopenia. 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 His lymphoma was initially diagnosed in 1998. I did not receive complete records regarding the specific histologic subtype. He had associated autoimmune thrombocytopenia. The lymphoma had been in clinical remission following chemotherapy. He continued, though, to have problems with the thrombocytopenia, which was resistant to standard therapies and to splenectomy. Eventually, he did respond to treatment with danazol. I had seen him initially in May of 2011. His platelet count was moderately decreased, though adequate, at 72,000. Restaging PET/CT on 07/04/2011 showed minimally increased activity in scattered, small mediastinal lymph nodes, maximum SUV 4.6, consistent with low-grade lymphoma versus reactive adenopathy,. Activity in cervical lymph nodes was felt to be probably reactive. His repeat bone marrow aspiration/biopsy on 07/09/2011 showed normal cellular bone marrow at 60% cellularity. There were normal to mildly increased megakaryocytes. There were no overt dysplastic changes. There was no evidence of lymphoma or other infiltrative process in the bone marrow. The chromosome analysis was normal. With those findings, he continued observation/expectant management. As of his visit in November 2012 he appeared stable clinically. Platelet count at that time was 97,000. He had then failed to return for further follow-up until December 2019 when he came in complaining of deep fatigue and weakness . His platelet count was moderately decreased at 68,000 with hemoglobin normal at 14.6 g and white blood cell count 10,000. Sed rate was basically normal at 16 mm/hour. Comprehensive metabolic profile was unremarkable except for elevated nonfasting blood sugar, and his LDH was normal at 143 U/L. His RUSTAM screening test was positive at 1:640. RUSTAM profile was unrevealing. With those findings, he continued expectant management. His other medical illnesses include hypertension, hyperlipidemia, and type 2 diabetes. He has associated peripheral neuropathy. 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 He has been followed by Dr. Ocasio. He has a past history of smoking up to 1 pack of cigarettes daily, but he quit smoking in 1964. INTERIM HISTORY: On 04/04/2021 he was seen in the emergency room with back pain on the right side. A specific cause for the pain was not determined. His laboratory studies showed a slightly elevated white blood cell count 11,800. Hemoglobin was normal at 15 g. Platelet count remained adequate at 56,000. His CT abdomen/pelvis showed enlarged appendix without adjacent inflammation and with no evidence for abscess or perforation. There was no evidence of renal obstruction. He was noted to have several small mesenteric lymph nodes, the largest measuring 10 mm in the right abdomen anterior to the kidney. There were small retroperitoneal lymph nodes and aortocaval nodes and right lower quadrant lymph nodes. Also noted with some mild mesenteric panniculitis. The lymph nodes were noted to be slightly greater in size compared to the prior study in 2012. Restaging PET/CT on 05/11/2021 showed small, scattered lymph nodes from the level of the head/neck to the level of the upper abdomen with mild FDG activity, suggestive of active lymphoma. This included bilateral jugulodigastric nodes, more prominent on the right than the left, measuring up to 1 cm with SUV 4.5, FDG avid right axillary lymph nodes and multiple positive mediastinal lymph nodes. An index mediastinal lymph node in the right paratracheal area measuring 1.3 cm with SUV 4.4. Small mesenteric and portal nodes were noted to be minimally FDG positive. There were no findings for extranodal disease. As the extent of the adenopathy did not appear to be significant enough to be symptomatic, I opted to continue with expectant management. At his follow-up visit on 10/29/2021 he reported increased fatigue and generalized itching. His platelet count had decreased to 31,000. His serum protein electrophoresis and IgM monoclonal protein which quantitated at 0.8 g/dL. With those findings, he underwent bone marrow aspiration/biopsy on 11/05/2021. 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 Lymphoplasmacytic lymphoma was favored, but marginal zone lymphoma with paraprotein production and plasmacytic differentiation was also felt to be possible. Restaging PET/CT on 11/30/2021 showed small, shotty lymph nodes from the level of the head and neck to the level of the abdomen, but with resolution of FDG activity compared to the prior study from April 2021. There were no findings of extranodal disease. With those findings, he was recommended to continue expectant management, as it did not appear that the lymphoma was symptomatic. I had seen him for an unplanned visit on 01/23/2022, as he had developed severe pain in the left facial area which I felt was most likely due to trigeminal neuralgia. I had him try increasing his gabapentin dosage, he was also given immediate release oxycodone to take as needed for the pain. He is seen now for a follow-up visit. His pain is much better now and it is being managed adequately with his gabapentin dosage adjusted to 900 mg twice daily. He was able to quit the oxycodone a week ago. He still has limited activity. ECOG score is 2. His appetite is good. He has no fever or night sweats. He has some sinus drainage and he occasionally has nosebleeds. He has had sore throat and cough since last week. His breathing is okay, though, and he is not having chest pain. He was having constipation with the oxycodone, but that is better now. He has no other GI or complaints. He also has some pain in his low back and hips, which is chronic. The neuropathy in his feet has also shown some improvement with the higher gabapentin dosage. Medications: Acetaminophen Tablet Oral PRN, amLODIPine Besylate 1 Tablet (of 10 mg) Oral daily, Folic Acid 1 (1 mg) Tablet Oral daily, Garlic 1 Tablet Oral daily, Lisinopril 1 (40 mg) Tablet Oral daily, Magnesium 1 (250 mg) Tablet Oral daily, Neurontin 1 (400 mg) Capsule Oral t.i.d., NovoLIN 70/30 (70-30 %) Subcutaneous Take as Directed, oxyCODONE HCl 1 Tablet (of 10 mg) Oral q 6 hours PRN, Super B Complex Maxi 1 Tablet Oral daily, Tamsulosin HCl 1 Capsule (of 0.4 mg) Oral at bedtime, Taurine 1 Capsule (of 500 mg) Oral daily, Triamcinolone Acetonide 1 (0.5 %) Cream Topical daily, Vitamin D3 1 (400 Units) Tablet Oral daily Allergies: CT Dye and MetFORMIN HCl. Vital Signs: Performed on Mar 04, 2022 14:21 Height - 69.50 in Weight - 173.0 lbs (HIGH) BSA - 1.95 sq.m BMI - 25.18 Temperature - 97.4 F (LOW) Pulse - 60 /min Respiration - 18 /min BP - 130/57 mm(hg) O2 Sat - 97 % Pain - 0 Fatigue - 0 Physical Examination: Constitutional - He appears somewhat weak generally, Eyes - Sclerae nonicteric. Conjunctivae clear, ENMT - No lesions noted in the oral cavity, Hematologic/Lymphatic - No cervical, clavicular, or axillary adenopathy noted, Respiratory - Lungs show slightly coarse breath sounds bilaterally, Cardiovascular - Heart rythm is regular. There is a III/ systolic murmur, loudest at the base. There is no gallop or rub noted, Abdomen - Mildly distended but soft. Liver is not enlarged. There is no abdominal mass or ascites noted. There is no inguinal adenopathy, Extremities - There are venous stasis changes in both legs. There is currently no edema, Neurologic - No focal neurologic deficits noted. Lab/Imaging: Test performed on Mar 04, 2022 11:30 LDH (Total) 147 U/L Sodium 137 mmol/L Potassium 4.7 mmol/L Chloride 105 mmol/L CO2 24 mmol/L Anion Gap 12.7 BUN 19 mg/dL Creatinine 1.3 mg/dL Cr Clearance (Est) 47.79 mL/min Glucose 128 mg/dL Osmolality - Calculated 288 mOsm/kg Calcium 9.5 mg/dL Protein, Total 7.4 g/dL Albumin 3.7 g/dL Globulin 3.7 g/dL Bilirubin, Total 0.2 mg/dL ALT (SGPT) 15 U/L AST (SGOT) 20 U/L Alkaline Phosphatase 134 IU/L WBC 13.0 10 3/uL RBC 4.08 10 6/uL HGB 12.4 g/dL HCT 38.2 % MCV 93.6 fl MCH 30.4 pg MCHC 32.5 g/dL RDW 13.5 % Platelet Count 97 10 3/cmm MPV 12.5 fL Neutrophils 5.80 10 3/uL Lymphocytes 5.3 10 3/uL Monocytes 1.1 10 3/uL Eosinophils 0.6 10 3/uL Basophils 0.1 10 3/uL Neutrophil % 44.6 % Lymphocyte % 40.8 % Monocyte % 8.6 % Eosinophil % 4.8 % Basophils % 0.7 % NRBC % 0 % Problem List: 1. Low-grade non-Hodgkin's lymphoma, stage IV, initially diagnosed in 1998. The lymphoma was felt to be in clinical remission following chemotherapy treatment. 2. 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 It eventually did show some response to treatment with danazol. 3. He has symptoms suggestive of other autoimmune disease, including Sjogren's syndrome and Raynaud's disease, and he has had a positive RUSTAM at 1:640 titer. 4. He underwent TURBT for superficial bladder cancer in 2012. 5. Hypertension. 6. Hyperlipidemia. 7. Type 2 diabetes with peripheral neuropathy. 8. Chronic kidney disease. 9. Benign prostatic hypertrophy. 10. He has history of pulmonary histoplasmosis. Problems Addressed with this Encounter and Plan: 1. Patient with low-grade non-Hodgkin's lymphoma, stage IV, initially diagnosed in 1998. He had associated autoimmune thrombocytopenia. The lymphoma had been in clinical remission following chemotherapy treatment. His CT abdomen/pelvis on 04/04/2021 showed slight increase in small mesenteric and retroperitoneal lymph nodes, suggesting possible progression of the lymphoma. That study also showed evidence of mesenteric misting, possibly due to lymphoma. Restaging PET/CT on 05/11/2021 showed small mildly FDG positive lymph nodes from the level of the head/neck to the level of the upper abdomen, felt to be consistent with active lymphoma. There is no evidence of extranodal disease. As the adenopathy did not appear extensive enough to be symptomatic, he continued on expectant management. As of his follow-up visit in October 2021 he had experienced some decline in his performance status. His platelet count had dropped to 31,000, and he had a detectable IgM monoclonal protein quantitating at 0.8 g/dL. His repeat bone marrow aspiration/biopsy on 11/05/2021 showed involvement with small B-cell lymphoma with plasmacytic features, estimated at 20 to 30% of the marrow cellularity. A lymphoplasmacytic lymphoma was favored, though marginal zone lymphoma with paraprotein production and plasmacytic differentiation was noted to also be a possibility. Restaging PET/CT on 11/30/2021 showed small, shotty lymph nodes extending from the level of the head and neck to the level of the abdomen, but with resolution of FDG activity compared to the study from April 2021. With those findings, he has continued expectant management for the lymphoma, as there has been no definite indication for treatment. He will be scheduled for a follow-up visit in 6 months, but I can see him again sooner as needed. 2. He has had a significantly elevated RUSTAM titer, consistent with his autoimmune thrombocytopenia. However, there appeared to be no indication for treatment, as he has had no other overt symptoms of systemic lupus. 3. He had presented last month with severe pain in the left facial area. Clinically it appeared to be consistent with trigeminal neuralgia. Thus far it has been managed adequately with an increase in his gabapentin dosage. As he now appears to be having some mild SLIP MIXER side effects with the gabapentin, I will have him try adjusting the dosage to 600 mg in the morning and 900 mg at bedtime. It can be further adjusted as needed. Signed By: Robin Dixon M.D. <<Signature on File>>
== END 2022-03-22 23:59 | disposition home or self-care (01) ==
LOC: ONCMED 11:15
PROVIDERS: Internal Medicine Medical Oncology; PCP Emergency Medicine Emergency Medical Services; Visit Provider Nurse Practitioner Family
DX: Z08 Encounter for follow-up examination after completed treatment for malignant neoplasm (principal); Z85.72 Personal history of non-Hodgkin lymphomas; D69.3 Immune thrombocytopenic purpura; R79.89 Other specified abnormal findings of blood chemistry; E78.5 Hyperlipidemia, unspecified; E11.42 Type 2 diabetes mellitus with diabetic polyneuropathy; E11.22 Type 2 diabetes mellitus with diabetic chronic kidney disease; N18.9 Chronic kidney disease, unspecified; I12.9 Hypertensive chronic kidney disease with stage 1 through stage 4 chronic kidney disease, or unspecified chronic kidney disease; N40.0 Benign prostatic hyperplasia without lower urinary tract symptoms; Z85.51 Personal history of malignant neoplasm of bladder; Z87.09 Personal history of other diseases of the respiratory system; Z79.899 Other long term (current) drug therapy; Z92.21 Personal history of antineoplastic chemotherapy
CPT/HCPCS: 36415; 80053; 83615; 85025; 99214

== ENCOUNTER 2022-03-12 10:58 | Outpatient (CLI) | payer OTHER, SELFPAY ==
--- NOTE | 2022-03-12 11:06 | MR_ITS ---
WS: [id number] MRI NECK with and without CONTRAST. COMPARISON: PET/CT 11/30/2021 Multiplanar, multisequence imaging is performed with and without contrast. Sagittal and axial T1 fat sat sequences post-MultiHance 17 cc IV. Patient has been treated for non-Hodgkin's lymphoma. There are numerous but small bilateral cervical chain lymph nodes. These lymph nodes do mildly enhance. There is one lymph node measuring 10 mm in sh ort axis diameter with moderate enhancement at level IIa on the RIGHT. There are additional small but enhancing lymph nodes continuing along level IIb on the RIGHT. Additional smaller caliber bilateral lymph nodes measuring less than a centimeter. Lymph nodes extend from the skull base to the supraclavicular regions. As compared to the prior PET/CT mild increase in size. There is no abnormality in the region of the parotid gland. No inflammation or parotid duct ob struction. Mild mucoperiosteal thickening throughout the maxillary sinuses. The orbits and globes are negative. Small amount of fluid in the mastoid air cells on the RIGHT. MR/MR orbit face neck wo/w* [id number] IMPRESSION: 1. Numerous enhancing but small lymph nodes on the RIGHT at level IIa and IIb. These lymph nodes were present on the prior PET/CT but appear slightly greater in size today and there is enhancement. Could be reactive adenopathy but the f act that there has been a change is concerning for recurrent lymphoma. 2. Mild mucoperiosteal thickening in the maxillary sinuses and fluid in the RI GHT mastoid air cells.
[2022-03-12] MEDS: gadobenate dimeglumine 20 mL vial IV (12:26)
== END 2022-03-12 10:59 | disposition home or self-care (01) ==
LOC: RAD 11:00
PROVIDERS: PCP Emergency Medicine Emergency Medical Services; Visit Provider Otolaryngology
DX: G50.1 Atypical facial pain (principal)
CPT/HCPCS: 70543

== ENCOUNTER 2022-03-21 08:56 | Outpatient (CLI) | payer OTHER, SELFPAY ==
--- NOTE | 2022-03-21 09:04 | MR_ITS ---
WS: [id number] MRI NECK WITH CONTRAST TECHNIQUE: Noncontrast axial T1, axial T2 FSE fat sat, coronal T2 fat sat, coronal T1, coronal T1 fat sat, sagittal T2 fat sat, plus contrast enhanced coronal, sagittal, and axial T1 fat sat images obta ined. CLINICAL INFORMATION: ATYPICAL FACIAL; PAIN COMPARISON: MRI March 12, 2022 FINDINGS: No evidence of restricted diffusion to suggest acute ischemia. Ventricular system and basal cisterns are patent. Mild small vessel changes. Moderate parenchymal volume loss. Small vessel changes in the norberto. Normal posterior fossa. Normal vascular flow voids at the skull base. No extra-axial fluid lou ections. No evidence of mass or mass effect. Mild mucosal thickening paranasal sinuses. Mucosal thickening RIGHT greater than LEFT mastoid air ramses ls. Normal vascular flow voids at the skull base. Chronic lacunar infarct LEFT caudate. Prominent per ivascular spaces in the basal ganglia. Normal posterior nasopharynx. No hemosiderin on susceptibly weighted images. Proximal 7th and 8th cranial nerves are normal in appe arance. Normal trigeminal nerve root entry zones. Normal optic chiasm and pituitary infundibulum. Opt ic nerves are normal in appearance. No evidence of edema. Globes are normal in appearance. No evidenc e of enhancing IAC or CP angle mass. Normal cavernous sinuses and Meckel's cave. No abnormal intracra nial parenchymal enhancement. Normal dural venous sinuses. MR/MR orbit face neck wo/w* [id number] IMPRESSION: 1. No evidence of restricted diffusion to suggest acute ischemia. 2. No evidence of enhancing intracranial metastatic disease. 3. Mild small vessel changes with moderate parenchymal volume loss. 4. No evidence of enhancing IAC or CP angle mass. Normal 7th and 8th cranial n erves. 5. Normal trigeminal nerve root entry zones and cavernous sinuses. 6. Normal optic chiasm and pituitary infundibulum. 7. Chronic lacunar infarct LEFT caudate. 8. Mild inflammatory changes paranasal sinuses. Mild mucosal thickening RIGHT greater than LEFT mastoid air cells.
== END 2022-03-21 08:57 | disposition home or self-care (01) ==
PROVIDERS: PCP Emergency Medicine Emergency Medical Services; Visit Provider Otolaryngology
DX: G50.1 Atypical facial pain (principal)
CPT/HCPCS: 70543

== ENCOUNTER 2022-05-09 07:49 | Oncology outpatient (recurring) (ONCR) | payer OTHER, SELFPAY ==
[2022-05-09 08:19] LABS: Basophils # 0.1 10^3/uL (0.0-0.1); Basophils % 0.8 %; Eosinophils # 0.6 10^3/uL (0.0-0.8); Eosinophils % 6.3 %; Hemoglobin 13.6 g/dL (11.7-16.6); Lymphocytes # 4.3 10^3/uL (0.8-4.8); Lymphocytes % 47.3 %; Mean Corpuscular HGB Conc 33.2 g/dL (30.0-36.0); Mean Corpuscular Hemoglobin 30.1 pg (28.0-34.0); Mean Corpuscular Volume 90.7 fl (80-94); Monocytes # 0.9 10^3/uL (0.2-0.9); Monocytes % 9.9 %; Neutrophils # 3.24 10^3/uL (1.8-7.7); Neutrophils % 35.4 %; Nucleated Red Blood Cells % 0 %; Platelet Count 42 10^3/cmm (130-400); Red Blood Count 4.52 10^6/uL (4.1-5.3); Red Cell Distribution Width 13.9 % (12.1-15.1); White Blood Count 9.1 10^3/uL (4.0-10.0)
[2022-05-09 08:35] LABS: Mean Platelet Volume 14.3 fL (7.4-10.4); Slide Review Slide Review Perform
[2022-05-09 08:36] LABS: Alanine Aminotransferase 12 U/L (0-41); Albumin Level 3.8 g/dL (3.5-5.2); Alkaline Phosphatase 110 IU/L (40-130); Anion Gap 13.6 (5-19); Aspartate Amino Transferase 19 U/L (0-40); Blood Urea Nitrogen 18 mg/dL (8-23); Calcium 9.1 mg/dL (8.5-10.5); Carbon Dioxide 25 mmol/L (22-29); Chloride 100 mmol/L (98-107); Globulin 4.1 g/dL (1.3-4.6); Glucose 348 mg/dL (65-115); Lactate Dehydrogenase 119 U/L (135-225); Osmolality Calculated 294 mOsm/kg (285-295); Potassium 4.6 mmol/L (3.5-5.1); Sodium 134 mmol/L (136-145); Total Bilirubin 0.4 mg/dL (0.15-1.2); Total Protein 7.9 g/dL (6.6-8.7)
== END 2022-05-22 23:59 | disposition home or self-care (01) ==
PROVIDERS: Internal Medicine Medical Oncology; PCP Emergency Medicine Emergency Medical Services; Visit Provider Nurse Practitioner Family
DX: Z08 Encounter for follow-up examination after completed treatment for malignant neoplasm (principal); Z85.72 Personal history of non-Hodgkin lymphomas; D69.3 Immune thrombocytopenic purpura; Z92.21 Personal history of antineoplastic chemotherapy; Z87.891 Personal history of nicotine dependence
CPT/HCPCS: 80053; 83615; 85025; G0463

== ENCOUNTER 2022-12-12 08:54 | Oncology outpatient (recurring) (ONCR) | payer OTHER, SELFPAY ==
[2022-12-12 09:52] LABS: Basophils # 0.1 10^3/uL (0.0-0.1); Basophils % 0.8 %; Eosinophils # 0.5 10^3/uL (0.0-0.8); Eosinophils % 6.7 %; Hematocrit 40.9 % (42.0-52.0); Lymphocytes # 3.6 10^3/uL (0.8-4.8); Lymphocytes % 46.5 %; Mean Corpuscular HGB Conc 31.8 g/dL (30.0-36.0); Mean Corpuscular Volume 97.4 fl (80-94); Monocytes # 0.8 10^3/uL (0.2-0.9); Monocytes % 9.8 %; Neutrophils # 2.76 10^3/uL (1.8-7.7); Neutrophils % 35.9 %; Nucleated Red Blood Cells % 0 %; Platelet Count 38 10^3/cmm (130-400); Red Cell Distribution Width 13.2 % (12.1-15.1); White Blood Count 7.7 10^3/uL (4.0-10.0)
[2022-12-12 10:06] LABS: Alanine Aminotransferase 11 U/L (0-41); Albumin Level 3.8 g/dL (3.5-5.2); Alkaline Phosphatase 105 U/L (40-130); Anion Gap 12.9 (5-19); Aspartate Amino Transferase 18 U/L (0-40); Blood Urea Nitrogen 18 mg/dL (8-23); Calcium 8.9 mg/dL (8.5-10.5); Carbon Dioxide 27 mmol/L (22-29); Chloride 103 mmol/L (98-107); Globulin 3.8 g/dL (1.3-4.6); Glucose 295 mg/dL (65-115); Lactate Dehydrogenase 122 U/L (135-225); Osmolality Calculated 299 mOsm/kg (285-295); Potassium 4.9 mmol/L (3.5-5.1); Sodium 138 mmol/L (136-145); Total Bilirubin 0.3 mg/dL (0.15-1.2); Total Protein 7.6 g/dL (6.6-8.7)
[2022-12-12 10:21] LABS: Slide Review Slide Review Perform
== END 2022-12-23 23:59 | disposition home or self-care (01) ==
PROVIDERS: PCP Emergency Medicine Emergency Medical Services; Visit Provider Nurse Practitioner Family
DX: C85.88 Other specified types of non-Hodgkin lymphoma, lymph nodes of multiple sites (principal); D69.3 Immune thrombocytopenic purpura; Z87.891 Personal history of nicotine dependence
CPT/HCPCS: 36415; 80053; 83615; 85025; 99214

== ENCOUNTER 2023-01-12 10:16 | Outpatient (CLI) | payer OTHER, SELFPAY | END 2023-01-12 10:17 | disposition home or self-care (01) | PROVIDERS: PCP Emergency Medicine Emergency Medical Services; Visit Provider Internal Medicine Medical Oncology | DX: C85.80 Other specified types of non-Hodgkin lymphoma, unspecified site (principal) | CPT/HCPCS: 87338 ==

== ENCOUNTER 2023-04-17 08:09 | Inpatient (IN) | payer OTHER, SELFPAY ==
[2023-04-17] VITALS (11 sets, daily range): BP systolic 122–161; BP diastolic 53–69; PULSE 69–92; RESP 16–18; TEMP 36.7–38.2; O2SAT 90–95; BMI 25.1; BMI 24.2
--- NOTE | 2023-04-17 08:24 | XR_ITS ---
WS: [id number] Portable AP upright chest, 04/17/2023 Clinical Data: cough fever Comparison: Portable chest, 01/19/2022 Findings: There is a patchy opacity of right lower lobe which probably represents atelectasis, pneumo roma and effusion. There is minimal patchy opacity over the surface of the left diaphragm in the retro cardiac region which could also represent atelectasis and/or pneumonia. The upper lobes are clear. Th e pulmonary vascularity is not increased. The heart is at the upper limits of normal. No pneumothorax is present. The aortic arch and descending thoracic aorta show minimal calcification and tortuosity. XR/XR chest 1V portable [id number] Impression: 1. Right lower lobe opacity which may represent atelectasis, effusion and pneum onia. 2. Minimal retrocardiac opacity which could represent pneumonia and or atelecta sis. 3. Atherosclerosis.
--- NOTE | 2023-04-17 08:25 | ED_ITS ---
HPI - URI/Sore Throat General: Chief Complaint: Upper Respiratory Infection Stated Complaint: fever, cough 1xmonth Time Seen by Provider: 04/17/23 08:20 History of Present Illness: Patient presents to the ER with complaints of cough and fever x1 month. Patient finished Keflex but 7 days ago for an eye and ear infection. Patient's had a worsening nonproductive cough and fever the last 3 days MD elicited complaint: fever and cough Onset (ago): month(s) (About 1 month ago) Consistency: constant and progressively worsening Severity: mild Able to tolerate fluids by mouth: Yes Exacerbating factors: exertion Relieving factors: nothing Associated symptoms: Reports chills, congestion, cough and fever(s); Deny abdominal pain, chest pain, diarrhea, nausea or vomiting Treatments prior to arrival: none Review of Systems General: Reports: 10 or more systems reviewed and unremarkable except in HPI and below Const: Reports: fever(s) and chills Eyes: Denies: change in vision or photophobia ENMT: Denies: throat pain or odynophagia Card: Denies: chest pain, palpitations, irregular heart rhythm or lightheadedness Resp: Reports: dyspnea and non-productive cough GI: Denies: abdominal pain, nausea, vomiting or diarrhea : Denies: flank pain, difficulty urinating or dysuria Musc: Denies: neck pain, back pain or extremity pain PFSH ED PFSH: Medical History Autoimmune thrombocytopenia Bladder cancer Superficial bladder cancer Contrast media allergy Degenerative joint disease of spine Hyperlipidemia Hypertension Low grade B-cell lymphoma Peripheral neuropathy Type 2 diabetes mellitus Surgical History H/O arthroscopy of shoulder RIGHT H/O splenectomy H/O transurethral resection of bladder tumor (TURBT) (2012) History of cholecystectomy Family History Mother CAD (coronary artery disease) Grandmother Cancer Colon cancer Brother Cancer Colon cancer Sister Cancer Colon cancer Social History Smoking and tobacco status: former smoker Second hand smoke exposure: No Alcohol intake: never Substance/Drug Use: never Caregiver/support person: Yes Lives independently: Yes Household members: spouse Physical Exam Const: COMMON NORMALS: no acute distress, average body habitus, patient oriented x3, no limitations, healthy appearing, alert and well nourished HENMT: COMMON NORMALS: normocephalic, atraumatic, hearing grossly normal bilaterally, external ears normal, Normal external nose present and moist oral mucous membranes HEAD & SCALP: normocephalic and atraumatic NOSE: Normal external nose present EXTERNAL EAR: Yes external ears normal Eye: COMMON NORMALS: Equal, round and reactive pupils present, EOMs intact bilaterally, conjunctivae normal and no scleral icterus CONJUNCTIVA: Yes conjunctivae normal PUPIL: Yes Equal, round and reactive pupils present Neck/C-Spine: COMMON NORMALS: full ROM, no lymphadenopathy, supple, no menin geal signs, no JVD and Thyroid normal THYROID: Thyroid normal Chest: COMMONS NORMALS: normal inspection of the chest and normal palpation of entire chest wall Resp: EFFORT & INSPECTION: Yes symmetric chest movement AUSCULTATION: rhonchi Cardio: COMMON NORMALS: no JVD, regular rate and S1 normal heart sound present RATE: regular rate HEART SOUNDS: S1 normal heart sound present and Murmur heart sound present GI: COMMON NORMALS: Normal to inspection, nondistended, normoactive bowel sounds present, Soft to palpation, non-tender, No hepatosplenomegaly present and no masses PALPATION: Yes Soft to palpation and Yes No hepatosplenomegaly present : COMMON NORMALS: Yes no CVA tenderness BLADDER/KIDNEY EXAM: Yes no CVA tenderness Back/Pelvis: COMMON NORMALS: no CVA tenderness Extremity: COMMON NORMALS: normal to inspection Neuro: COMMON NORMALS: patient oriented x3 SENSORIUM/ORIENTATION: Yes alert MENINGEAL SIGNS: Yes no meningeal signs Course Vital Signs: Vital signs: Vital Signs Temperature 98.2 F 04/17/23 08:16 Pulse Rate 79 04/17/23 08:16 Respiratory Rate 16 04/17/23 08:16 Blood Pressure 131/53 04/17/23 08:16 Oxygen Delivery Me thod Room Air 04/17/23 08:16 MDM - URI/Sore Throat Medical Decision Making Patient presents with cough and fever x1 month. Patient has failed outpatient round of Keflex during this time. Patient has a worsening nonproductive cough. Lab work was obtained which showed a white count of 20,000 and a platelet count of 27,000, x-ray showed right lower lobe opacity which may represent atelectasis effusion or pneumonia. Sodium 129 and creatinine 1.6. Patient was given Zosyn IV per ER. Dr. Mcknight was consulted and agreed for observation and we will get a COVID PCR. Differential Diagnosis Likely upper respiratory infection, viral infection and bronchitis; Unlikely croup, otitis media, sinusitis, influenza or pharyngitis Medical Records I reviewed the patient's medical records. Lab Data I reviewed the patient's lab results. 04/17/23 08:45 04/17/23 08:45 Radiology Impressions Chest X-Ray 04/17/23 08:24 Impression: 1. Right lower lobe opacity which may represent atelectasis, effusion and pneumonia. 2. Minimal retrocardiac opacity which could represent pneumonia and or atelectasis. 3. Atherosclerosis. Laboratory Results WBC 20.4 10^3/uL (4.0-10.0) H 04/17/23 08:45 RBC 3.99 10^6/uL (4.1-5.3) L 04/17/23 08:45 Hgb 11.8 g/dL (11.7-16.6) 04/17/23 08:45 Hct 37.5 % (42.0-52.0) L 04/17/23 08:45 MCV 94.0 fl (80-94) 04/17/23 08:45 MCH 29.6 pg (28.0-34.0) 04/17/23 08:45 MCHC 31.5 g/dL (30.0-36.0) 04/17/23 08:45 RDW 13.9 % (12.1-15.1) 04/17/23 08:45 Plt Count 27 10^3/cmm (130-400) L* 04/17/23 08:45 MPV TNP 04/17/23 08:45 Neut % (Auto) 71.3 % 04/17/23 08:45 Lymph % (Auto) 19.6 % 04/17/23 08:45 [place] % (Auto) 7.9 % 04/17/23 08:45 Eos % (Auto) 0.3 % 04/17/23 08:45 Baso % (Auto) 0.5 % 04/17/23 08:45 Neut # (Auto) 14.53 10^3/uL (1.8-7.7) H 04/17/23 08:45 Lymph # (Auto) 4.0 10^3/uL (0.8-4.8) 04/17/23 08:45 [place] # (Auto) 1.6 10^3/uL (0.2-0.9) H 04/17/23 08:45 Eos # (Auto) 0.1 10^3/uL (0.0-0.8) 04/17/23 08:45 Baso # (Auto) 0.1 10^3/uL (0.0-0.1) 04/17/23 08:45 Nucleated RBC % (auto) 0 % 04/17/23 08:45 Nucleated RBCs # 0.0 /100WBC 04/17/23 08:45 Sodium 129 mmol/L (136-145) L 04/17/23 08:45 Potassium 4.7 mmol/L (3.5-5.1) 04/17/23 08:45 Chloride 97 mmol/L (98-107) L 04/17/23 08:45 Carbon Dioxide 21 mmol/L (22-29) L 04/17/23 08:45 Anion Gap 15.7 (5-19) 04/17/23 08:45 BUN 22 mg/dL (8-23) 04/17/23 08:45 Creatinine 1.6 mg/dL (0.7-1.2) H 04/17/23 08:45 GFR Calculation Not Reportable 04/17/23 08:45 Glucose 230 mg/dL (65-115) H 04/17/23 08:45 Calculated Osmolality 279 mOsm/kg (285-295) L 04/17/23 08:45 Lactic Acid 1.4 mmol/L (0.5-2.2) 04/17/23 09:45 Calcium 8.7 mg/dL (8.5-10.5) 04/17/23 08:45 Magnesium 2.4 mg/dL (1.7-2.3) H 04/17/23 08:45 Total Bilirubin 0.4 mg/dL (0.15-1.2) 04/17/23 08:45 AST 20 U/L (0-40) 04/17/23 08:45 ALT 11 U/L (0-41) 04/17/23 08:45 Alkaline Phosphatase 74 U/L (40-130) 04/17/23 08:45 Total Protein 7.7 g/dL (6.6-8.7) 04/17/23 08:45 Albumin 3.1 g/dL (3.5-5.2) L 04/17/23 08:45 Globulin 4.6 g/dL (1.3-4.6) 04/17/23 08:45 Procalcitonin 0.30 ng/mL (0-0.5) 04/17/23 08:45 Influenza Type A Ag negative (Negative) 04/17/23 08:45 Influenza Type B Ag negative (Negative) 04/17/23 08:45 SARS-CoV-2 Ag (Rapid) negative (Negative) 04/17/23 08:45 Discharge Plan Discharge Patient Disposition: Placed in Observation Clinical Impression: Thrombocytopenia, Acute hyponatremia, Acute renal insufficiency Pneumonia Qualifiers: Pneumonia type: due to unspecified organism Laterality: right Lung location: lo wer lobe of lung Qualified Code(s): J18.9 - Pneumonia, unspecified organism Leukocytosis Qualifiers: Leukocytosis type: unspecified Qualified Code(s): D72.829 - Elevated white blood cell count, unspecified Coding Level of Care Code ED Guest Services Manager for Fatimah Munoz
[2023-04-17 08:56] LABS: Basophils # 0.1 10^3/uL (0.0-0.1); Basophils % 0.5 %; Eosinophils # 0.1 10^3/uL (0.0-0.8); Eosinophils % 0.3 %; Hematocrit 37.5 % (42.0-52.0); Hemoglobin 11.8 g/dL (11.7-16.6); Lymphocytes % 19.6 %; Mean Corpuscular HGB Conc 31.5 g/dL (30.0-36.0); Mean Corpuscular Hemoglobin 29.6 pg (28.0-34.0); Monocytes # 1.6 10^3/uL (0.2-0.9); Monocytes % 7.9 %; Neutrophils # 14.53 10^3/uL (1.8-7.7); Neutrophils % 71.3 %; Nucleated Red Blood Cells % 0 %; Red Blood Count 3.99 10^6/uL (4.1-5.3); Red Cell Distribution Width 13.9 % (12.1-15.1); White Blood Count 20.4 10^3/uL (4.0-10.0)
[2023-04-17 09:09] LABS: Platelet Count 27 10^3/cmm (130-400)
[2023-04-17 09:12] LABS: Alanine Aminotransferase 11 U/L (0-41); Albumin Level 3.1 g/dL (3.5-5.2); Alkaline Phosphatase 74 U/L (40-130); Anion Gap 15.7 (5-19); Aspartate Amino Transferase 20 U/L (0-40); Blood Urea Nitrogen 22 mg/dL (8-23); Calcium 8.7 mg/dL (8.5-10.5); Carbon Dioxide 21 mmol/L (22-29); Chloride 97 mmol/L (98-107); Globulin 4.6 g/dL (1.3-4.6); Glucose 230 mg/dL (65-115); Magnesium 2.4 mg/dL (1.7-2.3); Osmolality Calculated 279 mOsm/kg (285-295); Potassium 4.7 mmol/L (3.5-5.1); Sodium 129 mmol/L (136-145); Total Bilirubin 0.4 mg/dL (0.15-1.2); Total Protein 7.7 g/dL (6.6-8.7)
[2023-04-17 09:39] LABS: Influenza A by IFA negative (Negative); Influenza B by IFA negative (Negative)
[2023-04-17 09:40] LABS: SARS Covid-2 Antigen negative (Negative)
[2023-04-17] MEDS: piperacillin-tazobactam 3.375 GM in sodium chloride 0.9% (plus) 50 ML IV ×2 (10:00→18:21)
--- NOTE | 2023-04-17 10:11 | PC.PHAR ---
faxed [place] for med list
[2023-04-17 10:14] LABS: Lactic Sepsis W/Reflex 1.4 mmol/L (0.5-2.2)
--- NOTE | 2023-04-17 11:45 | PM.HP ---
Providers/Chief Complaint Admitting Physician: Steve Mcknight MD Primary Care Provider: Myron Lombardi DO Chief Complaint: fever, cough 1xmonth History of Present Illness Sumit Abel is a 82 year old male who presented to the emergency department with complaints of cough, fever up to 101, malaise and fatigue for at least a month. Certainly worse in the last week. Reports occasional choking and coughing with eating. No vomiting. Denies any blood in his sputum, diarrhea, blood in stool or black or tarry stool. Denies any ill contacts. Communication is difficult, secondary to sensorineural hearing deficit. is present and provides some corollary history. Patient denies chest pain, or shortness of breath. relates he appears short of breath when he gets up and around. Review of Systems Const: Reports: fever(s), chills, fatigue and malaise Card: Denies: chest pain Resp: Denies: dyspnea or hemoptysis GI: Denies: abdominal pain, nausea, vomiting, hematochezia or melena Medications/Allergies Home Medications Medication Instructions Recorded Confirmed Last Taken Type amlodipine 10 mg tablet 10 mg PO QAM 04/04/21 04/17/23 04/17/23 06:00 History cholecalciferol (vitamin D3) 50 50 mcg PO QAM 04/04/21 04/17/23 11/04/21 History mcg (2,000 unit) tablet lisinopril 40 mg tablet 40 mg PO QAM 04/04/21 04/17/23 04/17/23 06:00 History omega 6-sch-cll-fish oil 1,000 mg 1 cap PO BID 04/04/21 04/17/23 10/31/21 History (120 mg-180 mg) capsule (Fish Oil) tamsulosin 0.4 mg capsule 0.4 mg PO QPM 04/04/21 04/17/23 11/04/21 History triamcinolone acetonide 0.05 % 1 applic topical BID PRN unknown 04/04/21 04/17/23 11/04/21 History topical ointment gabapentin 300 mg capsule 600 mg PO TID 05/09/22 04/17/23 Unknown History acetaminophen 500 mg tablet 1,000 mg PO Q6H PRN Pain 04/17/23 04/17/23 Unknown History empagliflozin 25 mg tablet 25 mg PO QAM 04/17/23 04/17/23 04/16/23 History insulin human U-100 NPH-regulr See Rx Instructions .Route .COMPLEX 04/17/23 04/17/23 Unknown History 70-30 mix 100 unit/mL subcutaneous susp (Novolin 70/30 U-100 Insulin) ketotifen fumarate 0.025 % (0.035 2 drp ophthalmic (eye) BID 04/17/23 04/17/23 Unknown History %) eye drops Allergies Allergy/AdvReac Type Severity Reaction Status Date / Time Iodinated Contrast Media Allergy ALGY-Rash Verified 04/17/23 10:42 metformin Allergy Unknown Verified 04/17/23 10:42 tramadol Allergy hallucinati Verified 04/17/23 10:42 on PFSH Acute PFSH: Medical History (Updated 04/17/23 @ 11:48 by Steve Mcknight MD) Autoimmune thrombocytopenia Bladder cancer Superficial bladder cancer BPH (benign prostatic hyperplasia) Contrast media allergy Degenerative joint disease of spine Dementia Hyperlipidemia Hypertension Low grade B-cell lymphoma Peripheral neuropathy Type 2 diabetes mellitus Surgical History (Updated 04/17/23 @ 11:48 by Steve Mcknight MD) H/O arthroscopy of shoulder RIGHT H/O splenectomy H/O transurethral resection of bladder tumor (TURBT) (2012) History of cholecystectomy History of tonsillectomy Family History Mother CAD (coronary artery disease) Grandmother Cancer Colon cancer Brother Cancer Colon cancer Sister Cancer Colon cancer Social History Smoking and tobacco status: former smoker Second hand smoke exposure: No Alcohol intake: never Substance/Drug Use: never Caregiver/support person: Yes Lives independently: Yes Household members: spouse Vitals/I&O/Wt Last Vital Signs Temp 98.2 F 04/17/23 08:16 Pulse 72 04/17/23 11:00 Resp 18 04/17/23 11:00 BP 122/53 04/17/23 11:00 Pulse Ox 93 04/17/23 11:00 O2 Del Method Nasal Cannula 04/17/23 09:00 O2 Flow Rate 2 04/17/23 09:00 Weight last 48 hrs Weight 77.111 kg Physical Exam Narrative: General exam is a white male, on 2 L of oxygen, he does not appear to be in any distress currently. HEENT: Atraumatic and normocephalic. Pupils equally round. Oropharynx clear. Neck is supple no lymphadenopathy thyromegaly Cardiovascular regular rate and rhythm with occasional premature beat. 2/6 systolic murmur. Lungs coarse breath sounds, occasional wheezes on the right. Left relatively clear. Abdomen is soft nontender positive bowel sounds. No obvious organomegaly exams deferred Extremities no cyanosis clubbing or edema, cap refill brisk Skin no rash Neuro no obvious focal deficits. Data 04/17/23 08:45 04/17/23 08:45 Other Labs: Calcium 8.7, magnesium 2.4, lactic acid 1.4, LFTs normal Albumin 3.1 TSH which I ordered is 1.9 Procalcitonin 0.3 Rapid COVID-negative and influenza antigen negative. COVID PCR pending Chest x-ray by my read demonstrates right lung infiltrate. Cannot completely rule out effusion I have ordered a urinalysis Micro: Microbiology 04/17/23 09:45 Blood Culture - Preliminary Blood SPECIMEN COLLECTED A&P Assessment and plan (1) Pneumonia: Patient has right lung pneumonia. Cannot completely rule out effusion. Check CT chest, noncontrast for further evaluation of infiltrate and to rule out effusion. Contrast is not being used secondary to acute kidney injury. IV antibiotics consisting of Zosyn and Levaquin currently. There is some history to suggest possible aspiration Speech therapy consultation Check MRSA PCR. If positive this would certainly change treatment in this immunocompromised individual Sputum culture CBC tomorrow. Qualifiers: Laterality: right Lung location: lower lobe of lung Pneumonia type: due to unspecified organism Qualified Code(s): J18.9 - Pneumonia, unspecified organism (2) Acute hyponatremia: May be secondary to renal failure or pneumonia Secondary to acute kidney injury will start normal saline. Recheck sodium at 6 PM to make sure worsening does not occur. BMP tomorrow as well. (3) Acute renal insufficiency: IV fluids overnight Recheck kidney function in the morning Check bladder scan to make sure urinary retention is not occurring. (4) Autoimmune thrombocytopenia: Continue to monitor Avoid anticoagulation currently (5) Diabetes: Sliding scale insulin Consistent carb diet Plan Multiple other medical problems as listed in past medical history Full code currently SCDs for DVT prophylaxis, anticoagulation contraindicated secondary to rather severe thrombocytopenia. Attestations Medical Necessity Statement*: Will require greater than 2 midnight stay for evaluation and treatment of pneumonia Diagnoses Pneumonia J18.9 Laterality: right Lung location: lower lobe of lung Pneumonia type: due to unspecified organism Acute hyponatremia E87.1 Acute renal insufficiency N28.9 Autoimmune thrombocytopenia D69.3 Diabetes E11.9 Time Spent (min) 38
--- NOTE | 2023-04-17 11:50 | CT_ITS ---
WS: [id number] CT CHEST TECHNIQUE: Noncontrast CT of the chest with coronal and sagittal reformatted images. CLINICAL INFORMATION: possible effusion COMPARISON: None. DLP: 338.[address] scans at [facility] use at least one of these dose optimization techniques: automated e xposure control; mA and/or kV adjustment per patient size (includes targeted exams where dose is matc hed to clinical indication); or iterative reconstruction. FINDINGS: Small RIGHT pleural effusion. Compressive atelectasis RIGHT lower lobe. Slight hazy patchy infiltrate s in the LEFT lower lobe with bronchiectasis. Bronchiectasis RIGHT lower lobe. Slight hazy groundglas s infiltrates in the lingula. Normal caliber thoracic aorta. Aortic calcification. Coronary calcification. No mediastinal or hilar lymphadenopathy. No axillary lymphadenopathy. Adrenal glands are normal. Cholecystectomy clips. Small esophageal hiata l hernia. Moderate thoracic kyphosis. Ankylosis thoracic spine. CT/CT chest wo con [id number] IMPRESSION: 1. Small RIGHT pleural effusion. Compressive atelectasis RIGHT lower lobe. 2. Patchy hazy infiltrates in the LEFT lower lobe, RIGHT lower lobe, and lingu la. Recommend correlation for pneumonia. 3. Cystic bronchiectasis in both lower lobes. 4. Cardiomegaly. 5. Small esophageal hiatal hernia. 6. Prior cholecystectomy.
[2023-04-17 12:51] LABS: Glucose Point of Care 164 mg/dL (70-110)
[2023-04-17 13:19] LABS: Adenovirus Not Detected (NOT DETECT); Chlamydia Pneumoniae Not Detected (NOT DETECT); Coronavirus 229E,HKU1,NL63,OC4 Not Detected (NOT DETECT); Human Metapneumovirus Detected (NOT DETECT); Human Rhinovirus/Enterovirus Not Detected (NOT DETECT); Influenza A Not Detected (NOT DETECT); Influenza A H1 Not Detected (NOT DETECT); Influenza A H1-2009 Not Detected (NOT DETECT); Influenza A H3 Not Detected (NOT DETECT); Influenza B Not Detected (NOT DETECT); Mycoplasma Pneumoniae Not Detected (NOT DETECT); Parainfluenza Virus Type 1 Not Detected (NOT DETECT); Parainfluenza Virus Type 2 Not Detected (NOT DETECT); Parainfluenza Virus Type 3 Not Detected (NOT DETECT); Parainfluenza Virus Type 4 Not Detected (NOT DETECT); Respiratory Syncytial Virus A Not Detected (NOT DETECT); Respiratory Syncytial Virus B Not Detected (NOT DETECT); SARS-COV-2 Not Detected (NOT DETECT)
[2023-04-17] MEDS: levofloxacin-dextrose 5 % 750 MG/150 ML PREMIX 100 MG IV (13:23)
[2023-04-17] MEDS: sodium chloride 0.9% 1,000 ML 75 ML IV (13:23)
[2023-04-17 14:00] LABS: Human Metapneumovirus Detected (NOT DETECT); Human Rhinovirus/Enterovirus Not Detected (NOT DETECT); Results from GE
[2023-04-17 14:06] LABS: Bilirubin Urine Neg (Negative); Blood Urine 2+ (Negative); Glucose Urine UA 4+ (Normal); Ketones Urine Negative (Negative); Leukocyte Esterase Urine Negative (Negative); Nitrate Urine Negative (Negative); Protein Urine Trace (Negative); Specific Gravity, Urine 1.015 (1.005-1.030); Urine Appearance Clear (CLEAR); Urine Color Yellow (Yellow); Urobilinogen Urine Norm (Negative); pH Urine 5 (5-7)
[2023-04-17 14:07] LABS: RBC Urine 0-4 /hpf (0-2)
[2023-04-17 14:32] LABS: NT Pro B Type Natriuretic Pept 314 pg/mL (0-450)
[2023-04-17] MEDS: gabapentin 300 mg Capsule 600 MG PO ×2 (15:06→20:34)
[2023-04-17 17:22] LABS: Glucose Point of Care 189 mg/dL (70-110)
[2023-04-17] MEDS: insulin lispro 100 unit/1 mL SUBCUT ×2 (18:21→21:35)
[2023-04-17] MEDS: tamsulosin 0.4 mg Capsule PO (18:21)
[2023-04-17 20:00] LABS: Anion Gap 17.6 (5-19); Blood Urea Nitrogen 25 mg/dL (8-23); Carbon Dioxide 21 mmol/L (22-29); Chloride 98 mmol/L (98-107); Glucose 177 mg/dL (65-115); Osmolality Calculated 283 mOsm/kg (285-295); Potassium 4.6 mmol/L (3.5-5.1); Sodium 132 mmol/L (136-145)
[2023-04-17 20:55] LABS: Glucose Point of Care 213 mg/dL (70-110)
[2023-04-18] VITALS (10 sets, daily range): BP systolic 98–137; BP diastolic 50–70; PULSE 65–80; RESP 16–19; TEMP 36.7–37.8; O2SAT 89–98
[2023-04-18] MEDS: piperacillin-tazobactam 3.375 GM in sodium chloride 0.9% (plus) 50 ML IV ×3 (01:16→17:45)
[2023-04-18] MEDS: sodium chloride 0.9% 1,000 ML 75 ML IV ×2 (01:16→15:37)
--- NOTE | 2023-04-18 03:53 | PC.NURSE ---
At beginning of shift, patient oriented to person, place, and situation, but not time. At this time, patient asks where am I? Bed alarm is set.
[2023-04-18] MEDS: amlodipine 10 mg Tablet PO (05:31)
[2023-04-18 05:54] LABS: Basophils # 0.1 10^3/uL (0.0-0.1); Basophils % 0.5 %; Eosinophils % 0.1 %; Hematocrit 33.9 % (42.0-52.0); Hemoglobin 10.8 g/dL (11.7-16.6); Lymphocytes # 3.9 10^3/uL (0.8-4.8); Lymphocytes % 25.1 %; Mean Corpuscular HGB Conc 31.9 g/dL (30.0-36.0); Mean Corpuscular Volume 94.2 fl (80-94); Monocytes # 1.3 10^3/uL (0.2-0.9); Neutrophils # 10.23 10^3/uL (1.8-7.7); Neutrophils % 65.9 %; Nucleated Red Blood Cells % 0 %; Red Cell Distribution Width 13.8 % (12.1-15.1); White Blood Count 15.6 10^3/uL (4.0-10.0)
[2023-04-18 06:12] LABS: Glucose Point of Care 98 mg/dL (70-110)
[2023-04-18 06:26] LABS: Alanine Aminotransferase 10 U/L (0-41); Albumin Level 2.9 g/dL (3.5-5.2); Alkaline Phosphatase 62 U/L (40-130); Anion Gap 17.7 (5-19); Aspartate Amino Transferase 20 U/L (0-40); Blood Urea Nitrogen 21 mg/dL (8-23); Calcium 8.1 mg/dL (8.5-10.5); Carbon Dioxide 19 mmol/L (22-29); Chloride 98 mmol/L (98-107); Globulin 4.1 g/dL (1.3-4.6); Glucose 92 mg/dL (65-115); Magnesium 2.1 mg/dL (1.7-2.3); Osmolality Calculated 273 mOsm/kg (285-295); Potassium 4.7 mmol/L (3.5-5.1); Sodium 130 mmol/L (136-145); Total Bilirubin 0.3 mg/dL (0.15-1.2)
[2023-04-18 06:44] LABS: Slide Review Slide Review Perform
[2023-04-18 06:46] LABS: Platelet Count 19 10^3/cmm (130-400)
[2023-04-18] MEDS: gabapentin 300 mg Capsule 600 MG PO ×3 (09:57→20:30)
[2023-04-18 11:10] LABS: Glucose Point of Care 151 mg/dL (70-110)
[2023-04-18] MEDS: insulin lispro 100 unit/1 mL SUBCUT ×3 (13:05→21:22)
[2023-04-18 16:38] LABS: Glucose Point of Care 143 mg/dL (70-110)
[2023-04-18] MEDS: tamsulosin 0.4 mg Capsule PO (17:46)
--- NOTE | 2023-04-18 19:39 | PM.PN ---
Subjective Subjective: Patient endorses cough, fevers, fatigue, malaise, and shortness of breath. Denies chills, nausea or emesis. Vitals/I&O/Wt Last Vital Signs Temp 98.1 F 04/18/23 12:00 Pulse 69 04/18/23 15:58 Resp 18 04/18/23 15:58 BP 114/64 04/18/23 15:58 Pulse Ox 89 L 04/18/23 15:58 O2 Del Method Nasal Cannula 04/18/23 09:05 O2 Flow Rate 2 04/18/23 09:05 04/18/23 04/18/23 04/18/23 06:59 14:59 22:59 Intake Total 941.25 / 1431.25 1600 / 1600 290 / 1890 Output Total 1500 / 1500 Balance 941.25 / 981.25 1600 / 1600 -1210 / 390 Weight last 48 hrs Weight 74.344 kg Weight 77.111 kg Physical Exam Narrative: General: Patient is awake and alert. Head: Normocephalic. Atraumatic. EOM intact. Neck: No JVD. Cardiovascular: RRR. No gallops. No murmurs. Lungs: Right sided rhonchi. No use of accessory muscles, no crackles or wheezes. Skin: No jaundice. No rashes. Abdomen: Normal bowel sounds, abdomen soft and nontender. Extremities: No cyanosis or clubbing. Musculoskeletal: No swollen or erythematous joints. Neurological: Moves all 4 extremities. No myoclonus. Data 04/18/23 04:57 04/18/23 04:57 Micro: Microbiology 04/17/23 12:51 Gram Stain - Final Sputum - Expectorated Sputum Sputum Culture - Preliminary 04/17/23 11:54 Blood Culture - Preliminary Blood NEGATIVE TO DATE 04/17/23 09:45 Blood Culture - Preliminary Blood NEGATIVE TO DATE A&P Assessment and plan (1) Pneumonia: Right-sided community acquired pneumonia complicated by human metapneumovirus infection Continue Zosyn Continue Levaquin Continue ST Imaging reviewed Follow up MRSA PCR and sputum Cx Pulmonary toilet Qualifiers: Laterality: right Lung location: lower lobe of lung Pneumonia type: due to unspecified organism Qualified Code(s): J18.9 - Pneumonia, unspecified organism (2) Acute hyponatremia: Na worse at 130, not responding to treatment as intended (3) Acute renal insufficiency: Renal function is worsening Metabolic acidosis is worsening Encourage oral intake Continue IV fluids for now (4) Autoimmune thrombocytopenia: PLT are worsening, increasing bleeding risk Continue to monitor Avoid anticoagulation (5) Diabetes: Sliding scale insulin Consistent carb diet Plan Multiple other medical problems as listed in past medical history Full code currently SCDs for DVT prophylaxis, anticoagulation contraindicated secondary to rather severe thrombocytopenia. Attestations Medical Necessity Statement*: Patient not responding to treatment as intended, he requies ongoing hospitalization for care. Coding Level of Care Code Acute Code for [facility] Fwd Diagnoses Pneumonia J18.9 Laterality: right Lung location: lower lobe of lung Pneumonia type: due to unspecified organism Acute hyponatremia E87.1 Acute renal insufficiency N28.9 Autoimmune thrombocytopenia D69.3 Diabetes E11.9
[2023-04-18 20:47] LABS: Glucose Point of Care 209 mg/dL (70-110)
[2023-04-19] VITALS (10 sets, daily range): BP systolic 116–134; BP diastolic 46–62; PULSE 61–75; RESP 16–20; TEMP 36.6–36.8; O2SAT 88–97
[2023-04-19] MEDS: piperacillin-tazobactam 3.375 GM in sodium chloride 0.9% (plus) 50 ML IV ×3 (02:13→17:51)
[2023-04-19] MEDS: sodium chloride 0.9% 1,000 ML 75 ML IV (02:16)
[2023-04-19 05:35] LABS: Basophils # 0.1 10^3/uL (0.0-0.1); Basophils % 0.6 %; Eosinophils # 0.3 10^3/uL (0.0-0.8); Eosinophils % 2.5 %; Hematocrit 33.2 % (42.0-52.0); Hemoglobin 10.5 g/dL (11.7-16.6); Lymphocytes # 3.6 10^3/uL (0.8-4.8); Lymphocytes % 35.3 %; Mean Corpuscular HGB Conc 31.6 g/dL (30.0-36.0); Mean Corpuscular Hemoglobin 29.2 pg (28.0-34.0); Mean Corpuscular Volume 92.2 fl (80-94); Monocytes # 0.8 10^3/uL (0.2-0.9); Monocytes % 7.9 %; Neutrophils # 5.43 10^3/uL (1.8-7.7); Neutrophils % 53.3 %; Nucleated Red Blood Cells % 0 %; White Blood Count 10.2 10^3/uL (4.0-10.0)
[2023-04-19 05:50] LABS: Platelet Count 23 10^3/cmm (130-400)
[2023-04-19 05:52] LABS: Slide Review Slide Review Perform
[2023-04-19 06:01] LABS: Procalcitonin 0.17 ng/mL (0-0.5)
[2023-04-19] MEDS: amlodipine 10 mg Tablet PO (06:11)
[2023-04-19 06:17] LABS: Alanine Aminotransferase 12 U/L (0-41); Albumin Level 2.8 g/dL (3.5-5.2); Alkaline Phosphatase 60 U/L (40-130); Anion Gap 15.6 (5-19); Aspartate Amino Transferase 27 U/L (0-40); Blood Urea Nitrogen 22 mg/dL (8-23); Carbon Dioxide 19 mmol/L (22-29); Chloride 105 mmol/L (98-107); Globulin 3.9 g/dL (1.3-4.6); Glucose 102 mg/dL (65-115); Osmolality Calculated 284 mOsm/kg (285-295); Phosphorus 3.5 mg/dL (2.5-4.5); Potassium 4.6 mmol/L (3.5-5.1); Sodium 135 mmol/L (136-145); Total Bilirubin 0.3 mg/dL (0.15-1.2); Total Protein 6.7 g/dL (6.6-8.7)
[2023-04-19 06:39] LABS: Glucose Point of Care 116 mg/dL (70-110)
[2023-04-19] MEDS: gabapentin 300 mg Capsule 600 MG PO ×3 (09:08→20:18)
[2023-04-19] MEDS: ipratropium-albuterol 3 mL Neb INHALATION ×2 (09:37→11:44)
[2023-04-19 11:20] LABS: Glucose Point of Care 172 mg/dL (70-110)
[2023-04-19] MEDS: insulin lispro 100 unit/1 mL SUBCUT ×3 (11:46→21:06)
[2023-04-19] MEDS: levofloxacin-dextrose 5 % 750 MG/150 ML PREMIX 100 MG IV (14:19)
[2023-04-19 16:23] LABS: Glucose Point of Care 227 mg/dL (70-110)
[2023-04-19] MEDS: tamsulosin 0.4 mg Capsule PO (17:51)
--- NOTE | 2023-04-19 18:23 | PM.PN ---
Subjective Subjective: Patient reports he is starting to feel better. Still reporting cough, fever, and generalized malaise. Reports increased strength. Wants to try to walk in the [place] today. Spouse reports he is starting to seem like himself again. Denies nausea, emesis, fevers or chills. Medications: Reviewed: Yes Vitals/I&O/Wt Last Vital Signs Temp 97.8 F 04/19/23 11:38 Pulse 70 04/19/23 11:53 Resp 20 H 04/19/23 11:45 BP 134/61 04/19/23 11:38 Pulse Ox 88 L 04/19/23 11:48 O2 Del Method Nasal Cannula 04/19/23 11:45 O2 Flow Rate 2 04/19/23 11:48 04/19/23 04/19/23 04/19/23 06:59 14:59 22:59 Intake Total 798.75 / 2738.75 1854 Output Total 350 / 2350 Balance 448.75 / 388.75 1854 Physical Exam Narrative: General: Patient is awake and alert. Head: Normocephalic. Atraumatic. EOM intact. Very hard of hearing. Neck: No JVD. Cardiovascular: RRR. No gallops. No murmurs. Lungs: Right sided rhonchi. No use of accessory muscles, no crackles or wheezes. Skin: No jaundice. No rashes. Abdomen: Normal bowel sounds, abdomen soft and nontender. Extremities: No cyanosis or clubbing. Musculoskeletal: No swollen or erythematous joints. Neurological: Moves all 4 extremities. No myoclonus. Data 04/19/23 04:52 04/19/23 04:52 Micro: Microbiology 04/17/23 12:51 Gram Stain - Final Sputum - Expectorated Sputum Sputum Culture - Final A&P Assessment and plan (1) Pneumonia: Right-sided community acquired pneumonia complicated by human metapneumovirus infection Continue Zosyn Continue Levaquin Continue ST Follow up MRSA PCR and sputum Cx Pulmonary toilet Qualifiers: Laterality: right Lung location: lower lobe of lung Pneumonia type: due to unspecified organism Qualified Code(s): J18.9 - Pneumonia, unspecified organism (2) Acute hyponatremia: Improved, Na 135 (3) Acute renal insufficiency: Encourage oral intake D/c IV fluids (4) Autoimmune thrombocytopenia: Continue to monitor Avoid anticoagulation (5) Diabetes: Sliding scale insulin Consistent carb diet Plan DVT ppx: SCD Code status: Full Code Attestations Medical Necessity Statement*: Patient requires ongoing hospitalized care for ongoing IV abx, labs, and supportive care. Coding Level of Care Code Acute Code for g Fwd Diagnoses Pneumonia J18.9 Laterality: right Lung location: lower lobe of lung Pneumonia type: due to unspecified organism Acute hyponatremia E87.1 Acute renal insufficiency N28.9 Autoimmune thrombocytopenia D69.3 Diabetes E11.9
[2023-04-19 20:18] LABS: Glucose Point of Care 265 mg/dL (70-110)
[2023-04-20] VITALS: BP 130/70; PULSE 66; RESP 18; TEMP 37; O2SAT 99
[2023-04-20] MEDS: piperacillin-tazobactam 3.375 GM in sodium chloride 0.9% (plus) 50 ML IV ×2 (01:01→10:03)
[2023-04-20 03:33] VITALS: BP 122/74; PULSE 64; RESP 16; TEMP 37; O2SAT 94
[2023-04-20 05:20] LABS: Basophils % 0.4 %; Eosinophils # 0.2 10^3/uL (0.0-0.8); Eosinophils % 1.7 %; Hematocrit 36.3 % (42.0-52.0); Hemoglobin 11.3 g/dL (11.7-16.6); Lymphocytes # 3.2 10^3/uL (0.8-4.8); Lymphocytes % 33.8 %; Mean Corpuscular HGB Conc 31.1 g/dL (30.0-36.0); Mean Corpuscular Hemoglobin 29.5 pg (28.0-34.0); Mean Corpuscular Volume 94.8 fl (80-94); Monocytes # 0.7 10^3/uL (0.2-0.9); Monocytes % 7.2 %; Neutrophils # 5.32 10^3/uL (1.8-7.7); Neutrophils % 56.4 %; Nucleated Red Blood Cells % 0 %; Platelet Count 30 10^3/cmm (130-400); Red Blood Count 3.83 10^6/uL (4.1-5.3); Red Cell Distribution Width 13.9 % (12.1-15.1); White Blood Count 9.4 10^3/uL (4.0-10.0)
[2023-04-20] MEDS: amlodipine 10 mg Tablet PO (05:31)
[2023-04-20 05:47] LABS: Albumin Level 3.1 g/dL (3.5-5.2); Anion Gap 16.7 (5-19); Blood Urea Nitrogen 20 mg/dL (8-23); Calcium 8.4 mg/dL (8.5-10.5); Carbon Dioxide 20 mmol/L (22-29); Chloride 106 mmol/L (98-107); Glucose 83 mg/dL (65-115); Magnesium 2.1 mg/dL (1.7-2.3); Phosphorus 4.6 mg/dL (2.5-4.5); Potassium 4.7 mmol/L (3.5-5.1); Sodium 138 mmol/L (136-145)
[2023-04-20 06:30] LABS: Glucose Point of Care 103 mg/dL (70-110)
[2023-04-20 07:29] VITALS: BP 126/63; PULSE 56; RESP 16; TEMP 36.4; O2SAT 94
[2023-04-20 08:00] VITALS: PULSE 71; RESP 20; O2SAT 91
[2023-04-20] MEDS: gabapentin 300 mg Capsule 600 MG PO (10:03)
--- NOTE | 2023-04-20 10:39 | PC.SOCIAL ---
Imm update IMM updated with patient at bedside. Copy of page 2 provided. Patient verbalized understanding. Copy in chart initialed,dated and timed.
--- NOTE | 2023-04-20 10:53 | PM.DCS ---
Discharge Providers Date of Admission: 04/17/23 11:19 Date of Discharge: April 20, 2023 Attending Provider at Admission: Steve Mcknight MD Attending Provider at Discharge: Melodie Reeder MD Primary Care Provider: Myron Lombardi DO Diagnoses at Discharge Discharge Diagnosis (1) Pneumonia: Status: Acute Qualifiers: Laterality: right Lung location: lower lobe of lung Pneumonia type: due to unspecified organism Qualified Code(s): J18.9 - Pneumonia, unspecified organism (2) Acute hyponatremia: Status: Acute (3) Acute renal insufficiency: Status: Acute (4) Autoimmune thrombocytopenia: Status: Acute (5) Diabetes: Status: Acute Reason for Visit Reason for Visit: fever, cough 1xmonth Hospital Course Hospital Course 82-year-old male who was admitted to the hospital for management and evaluation of acute hypoxia related to community-acquired pneumonia, hyponatremia acute, MAGALY, he was given dual antipseudomonal coverage with levofloxacin and Zosyn, he remained afebrile, he does have history of lymphoma status post rhinectomy he is briefly considered high risk for MRSA infection hence I would give him levofloxacin and doxycycline 5-day regimen at discharge after home O2 evaluation. Patient will be discharged with stable vitals. Sputum culture showing oral jesus, blood cultures negative. MAGALY improving with better p.o. intake and IV fluid hydration, sodium is 138 at discharge, white count 9.4, hemoglobin stable at 11, chronic thrombocytopenia platelet count 30,000 no active bleeding Creatinine at the time of admission was around 1.6, at the discharge it is 1.3, I will hold lisinopril for 4 to 5-day Physical Exam Narrative: Awake and alert Euvolemic abdomen soft Currently on 1.5 L GCS 15 Nonfocal neuro exam Abdomen soft Family is at the bedside Discharge Data Studies Completed and Pending Completed Studies During Hospitalization Category Date Time Status CT chest wo con [id number] Routine Cat Scan 04/17/23 11:50 Completed XR chest 1V portable [id number] Stat Exams 04/17/23 08:24 Completed Pending at discharge Category Date Time Status Blood Culture Stat Lab 04/17/23 11:54 Results Radiology Impressions Chest X-Ray 04/17/23 08:24 Impression: 1. Right lower lobe opacity which may represent atelectasis, effusion and pneumonia. 2. Minimal retrocardiac opacity which could represent pneumonia and or atelectasis. 3. Atherosclerosis. Chest CT 04/17/23 11:50 IMPRESSION: 1. Small RIGHT pleural effusion. Compressive atelectasis RIGHT lower lobe. 2. Patchy hazy infiltrates in the LEFT lower lobe, RIGHT lower lobe, and lingula. Recommend correlation for pneumonia. 3. Cystic bronchiectasis in both lower lobes. 4. Cardiomegaly. 5. Small esophageal hiatal hernia. 6. Prior cholecystectomy. Laboratory Results WBC 9.4 10^3/uL (4.0-10.0) 04/20/23 04:25 RBC 3.83 10^6/uL (4.1-5.3) L 04/20/23 04:25 Hgb 11.3 g/dL (11.7-16.6) L 04/20/23 04:25 Hct 36.3 % (42.0-52.0) L 04/20/23 04:25 MCV 94.8 fl (80-94) H 04/20/23 04:25 MCH 29.5 pg (28.0-34.0) 04/20/23 04:25 MCHC 31.1 g/dL (30.0-36.0) 04/20/23 04:25 RDW 13.9 % (12.1-15.1) 04/20/23 04:25 Plt Count 30 10^3/cmm (130-400) L D 04/20/23 04:25 MPV TNP 04/20/23 04:25 Neut % (Auto) 56.4 % 04/20/23 04:25 Lymph % (Auto) 33.8 % 04/20/23 04:25 [place] % (Auto) 7.2 % 04/20/23 04:25 Eos % (Auto) 1.7 % 04/20/23 04:25 Baso % (Auto) 0.4 % 04/20/23 04:25 Neut # (Auto) 5.32 10^3/uL (1.8-7.7) 04/20/23 04:25 Lymph # (Auto) 3.2 10^3/uL (0.8-4.8) 04/20/23 04:25 [place] # (Auto) 0.7 10^3/uL (0.2-0.9) 04/20/23 04:25 Eos # (Auto) 0.2 10^3/uL (0.0-0.8) 04/20/23 04:25 Baso # (Auto) 0.0 10^3/uL (0.0-0.1) 04/20/23 04:25 Nucleated RBC % (auto) 0 % 04/20/23 04:25 Nucleated RBCs # 0.0 /100WBC 04/20/23 04:25 Sodium 138 mmol/L (136-145) 04/20/23 04:25 Potassium 4.7 mmol/L (3.5-5.1) 04/20/23 04:25 Chloride 106 mmol/L (98-107) 04/20/23 04:25 Carbon Dioxide 20 mmol/L (22-29) L 04/20/23 04:25 Anion Gap 16.7 (5-19) 04/20/23 04:25 BUN 20 mg/dL (8-23) 04/20/23 04:25 Creatinine 1.3 mg/dL (0.7-1.2) H 04/20/23 04:25 GFR Calculation Not Reportable 04/20/23 04:25 Glucose 83 mg/dL (65-115) 04/20/23 04:25 POC Glucose 103 mg/dL (70-110) 04/20/23 06:25 Calculated Osmolality 284 mOsm/kg (285-295) L 04/19/23 04:52 Lactic Acid 1.4 mmol/L (0.5-2.2) 04/17/23 09:45 Calcium 8.4 mg/dL (8.5-10.5) L 04/20/23 04:25 Phosphorus 4.6 mg/dL (2.5-4.5) H 04/20/23 04:25 Magnesium 2.1 mg/dL (1.7-2.3) 04/20/23 04:25 Total Bilirubin 0.3 mg/dL (0.15-1.2) 04/19/23 04:52 AST 27 U/L (0-40) 04/19/23 04:52 ALT 12 U/L (0-41) 04/19/23 04:52 Alkaline Phosphatase 60 U/L (40-130) 04/19/23 04:52 NT-Pro-B Natriuret Pep 314 pg/mL (0-450) 04/17/23 08:45 Total Protein 6.7 g/dL (6.6-8.7) 04/19/23 04:52 Albumin 3.1 g/dL (3.5-5.2) L 04/20/23 04:25 Globulin 3.9 g/dL (1.3-4.6) 04/19/23 04:52 Procalcitonin 0.17 ng/mL (0-0.5) 04/19/23 04:52 TSH 1.90 uIU/mL (0.27-4.20) 04/17/23 10:09 Urine Color Yellow (Yellow) 04/17/23 12:11 Urine Appearance Clear (CLEAR) 04/17/23 12:11 Urine pH 5 (5-7) 04/17/23 12:11 Ur Specific [place] 1.015 (1.005-1.030) 04/17/23 12:11 Urine Protein Trace (Negative) 04/17/23 12:11 Urine Glucose (UA) 4+ (Normal) H 04/17/23 12:11 Urine Ketones Negative (Negative) 04/17/23 12:11 Urine Blood 2+ (Negative) H 04/17/23 12:11 Urine Nitrate Negative (Negative) 04/17/23 12:11 Urine Bilirubin Neg (Negative) 04/17/23 12:11 Urine Urobilinogen Norm mg/dL (Negative) 04/17/23 12:11 Ur Leukocyte Esterase Negative (Negative) 04/17/23 12:11 Urine RBC 0-4 /hpf (0-2) H 04/17/23 12:11 Urine WBC None /hpf (0-5) 04/17/23 12:11 Ur Squamous Epith Cells None /hpf (0-5) 04/17/23 12:11 Amorphous Sediment Not Reportable 04/17/23 12:11 Urine Bacteria None /hpf (NONE) 04/17/23 12:11 Coronavirus 229E (PCR) Not detected (NOT DETECT) 04/17/23 11:06 Human Metapneumovir PCR Detected (NOT DETECT) A 04/17/23 13:59 Influenza Type A Ag negative (Negative) 04/17/23 08:45 Influenza Type B Ag negative (Negative) 04/17/23 08:45 Entero/Rhino (PCR) Not detected (NOT DETECT) 04/17/23 13:59 SARS-CoV-2 (PCR) Not detected (NOT DETECT) 04/17/23 11:06 SARS-CoV-2 Ag (Rapid) negative (Negative) 04/17/23 08:45 Vitals Last Vital Signs Temp 97.5 F L 04/20/23 07:29 Pulse 71 04/20/23 08:00 Resp 20 H 04/20/23 08:00 BP 126/63 04/20/23 07:29 Pulse Ox 91 04/20/23 08:00 O2 Del Method Room Air 04/20/23 08:00 O2 Flow Rate 2 04/19/23 20:00 Discharge Plan Discharge Patient Disposition: Home Condition: Stable Prescriptions: New albuterol sulfate 90 mcg/actuation HFA aerosol inhaler 2 inh inhalation Q8H PRN (Reason: shortness of breath or wheezing) Qty: 8.5 0RF doxycycline hyclate 100 mg tablet 100 mg PO BID 5 Days Qty: 10 0RF levofloxacin 750 mg tablet 750 mg PO DAILY 5 Days Qty: 5 0RF Continued tamsulosin 0.4 mg Capsule 0.4 mg PO QPM amlodipine 10 mg Tablet 10 mg PO QAM triamcinolone acetonide 0.05 % Ointment 1 applic TOPICAL BID PRN (Reason: unknown) cholecalciferol (vitamin D3) 50 mcg (2,000 unit) Tablet 50 mcg PO QAM omega 3-lth-lie-fish oil [Fish Oil] 1,000 mg (120 mg-180 mg) Capsule 1 cap PO BID gabapentin 300 mg capsule 600 mg PO TID ketotifen fumarate 0.025 % (0.035 %) Drops 2 drp ophthalmic (eye) BID Novolin 70/30 U-100 Insulin 100 unit/mL (70-30) Suspension See Rx Instructions .ROUTE .COMPLEX Rx Instructions: 30 units subcutaneously qam and 25 units at bedtime Tylenol Ex Str Rapid Release 500 mg Tablet 1,000 mg PO Q6H PRN (Reason: Pain) empagliflozin 25 mg Tablet 25 mg PO QAM Held lisinopril 40 mg Tablet 40 mg PO QAM Hold Instructions: Resume on 04/24/23. Discharge Orders: Discharge Order (Routine); Ordered 04/20/23 Ordered By: Melodie Reeder Referrals: Maria C,Myron D, DO [Primary Care Provider] - Patient Instructions: Opioid Safety Discharge Attestations Time Spent in Discharge Care*: greater than 30 min Quality Metrics Clinical Quality Measures [ No reported AMI, CVA or VTE this stay] Coding Level of Care Code Acute Code for Chg Fwd Diagnoses Pneumonia J18.9 Laterality: right Lung location: lower lobe of lung Pneumonia type: due to unspecified organism Acute hyponatremia E87.1 Acute renal insufficiency N28.9 Autoimmune thrombocytopenia D69.3 Diabetes E11.9
[2023-04-20 11:26] VITALS: BP 108/58; PULSE 66; RESP 18; TEMP 36.4; O2SAT 94
[2023-04-20 11:49] LABS: Glucose Point of Care 236 mg/dL (70-110)
[2023-04-20] MEDS: insulin lispro 100 unit/1 mL SUBCUT (12:10)
[2023-04-22 13:49] LABS: Methicillin-Resist S.aureu PCR DETECTED (NOT DETECTED)
== END 2023-04-20 16:26 | disposition home or self-care (01) | DRG 194 ==
LOC: ER 10:25 → MEDSURG 14:46
PROVIDERS: Internal Medicine; Admitting Provider Internal Medicine; Emergency Provider Emergency Medicine; PCP Emergency Medicine Emergency Medical Services; Visit Provider Internal Medicine
DX: J18.9 Pneumonia, unspecified organism (principal); D69.3 Immune thrombocytopenic purpura; E87.1 Hypo-osmolality and hyponatremia; N17.9 Acute kidney failure, unspecified; Z79.4 Long term (current) use of insulin; Z85.51 Personal history of malignant neoplasm of bladder; N40.0 Benign prostatic hyperplasia without lower urinary tract symptoms; Z91.041 Radiographic dye allergy status; F03.90 Unspecified dementia, unspecified severity, without behavioral disturbance, psychotic disturbance, mood disturbance, and anxiety; E78.5 Hyperlipidemia, unspecified; I10 Essential (primary) hypertension; Z85.72 Personal history of non-Hodgkin lymphomas; E11.42 Type 2 diabetes mellitus with diabetic polyneuropathy; Z87.891 Personal history of nicotine dependence
CPT/HCPCS: 36415; 36416; 71045; 71250; 80048; 80053; 80069; 81001; 82962; 83605; 83735; 83880; 84100; 84145; 84443; 85025; 87040; 87070; 87205; 87426; 87635; 87641; 87801; 87804; 92507; 92523; 92526; 92610; 94640; 94760; 96372; 97161; 97530; 99285; J1815; J1956; J2543; J7030

== ENCOUNTER → 2023-05-18 10:18 | Outpatient (BNVA) | payer OTHER, SELFPAY | PROVIDERS: PCP Emergency Medicine Emergency Medical Services; Visit Provider Podiatrist Foot & Ankle Surgery | DX: B35.1 Tinea unguium (principal); E11.42 Type 2 diabetes mellitus with diabetic polyneuropathy; E11.51 Type 2 diabetes mellitus with diabetic peripheral angiopathy without gangrene; Z79.4 Long term (current) use of insulin | CPT/HCPCS: 11721; 99204 ==

== ENCOUNTER 2023-06-01 11:02 | Oncology outpatient (recurring) (ONCR) | payer OTHER, SELFPAY ==
[2023-06-01 11:16] VITALS: BP 133/68; PULSE 64; RESP 18; TEMP 36.8; O2SAT 96
[2023-06-01 11:29] LABS: Basophils # 0.1 10^3/uL (0.0-0.1); Basophils % 0.8 %; Eosinophils # 0.6 10^3/uL (0.0-0.8); Eosinophils % 6.8 %; Hematocrit 40.4 % (42.0-52.0); Hemoglobin 13.1 g/dL (11.7-16.6); Lymphocytes # 4.4 10^3/uL (0.8-4.8); Lymphocytes % 52.7 %; Mean Corpuscular HGB Conc 32.4 g/dL (30.0-36.0); Mean Corpuscular Hemoglobin 29.2 pg (28.0-34.0); Monocytes # 0.8 10^3/uL (0.2-0.9); Monocytes % 9.1 %; Neutrophils # 2.53 10^3/uL (1.8-7.7); Neutrophils % 30.5 %; Nucleated Red Blood Cells % 0 %; Platelet Count 44 10^3/cmm (130-400); Red Blood Count 4.49 10^6/uL (4.1-5.3); Red Cell Distribution Width 15.3 % (12.1-15.1); White Blood Count 8.3 10^3/uL (4.0-10.0)
[2023-06-01 11:49] LABS: Alanine Aminotransferase 11 U/L (0-41); Alkaline Phosphatase 103 U/L (40-130); Anion Gap 12.1 (5-19); Aspartate Amino Transferase 20 U/L (0-40); Blood Urea Nitrogen 15 mg/dL (8-23); Calcium 8.8 mg/dL (8.5-10.5); Carbon Dioxide 24 mmol/L (22-29); Chloride 100 mmol/L (98-107); Globulin 4.4 g/dL (1.3-4.6); Glucose 116 mg/dL (65-115); Lactate Dehydrogenase 142 U/L (135-225); Osmolality Calculated 276 mOsm/kg (285-295); Potassium 4.1 mmol/L (3.5-5.1); Sodium 132 mmol/L (136-145); Total Bilirubin 0.3 mg/dL (0.15-1.2); Total Protein 8.4 g/dL (6.6-8.7)
== END 2023-06-22 23:59 | disposition home or self-care (01) ==
PROVIDERS: Internal Medicine Medical Oncology; PCP Emergency Medicine Emergency Medical Services; Visit Provider Nurse Practitioner Family
DX: C85.80 Other specified types of non-Hodgkin lymphoma, unspecified site (principal); D69.3 Immune thrombocytopenic purpura
CPT/HCPCS: 36415; 80053; 83615; 85025; 99213

== ENCOUNTER → 2023-07-06 15:45 | Outpatient (BNVA) | payer OTHER, SELFPAY | PROVIDERS: PCP Emergency Medicine Emergency Medical Services; Visit Provider Internal Medicine Pulmonary Disease | DX: R13.10 Dysphagia, unspecified (principal); J90 Pleural effusion, not elsewhere classified; R06.09 Other forms of dyspnea | CPT/HCPCS: 36415; 82785; 86003; 99204 ==

== ENCOUNTER 2023-07-17 13:00 | Outpatient (CLI) | payer OTHER, SELFPAY ==
--- NOTE | 2023-07-17 13:30 | CT_ITS ---
WS: [id number] CT CHEST TECHNIQUE: Noncontrast CT of the chest with coronal and sagittal reformatted images. CLINICAL INFORMATION: Aortic calcification. Normal caliber thoracic aorta. Coronary calcification. COMPARISON: CT 04/17/2023 DLP: 240.[address] scans at [facility] use at least one of these dose optimization techniques: automated e xposure control; mA and/or kV adjustment per patient size (includes targeted exams where dose is matc hed to clinical indication); or iterative reconstruction. FINDINGS: Small RIGHT pleural effusion improved but persistent compared to previous. Compressive atel ectasis RIGHT lower lobe with air bronchograms similar to previous. Patchy infiltrates in the LEFT lo wer lobe have resolved. Calcified granuloma LEFT upper lobe. Patchy infiltrates in the lingula have r esolved. Normal caliber thoracic aorta. Aortic calcification. Coronary calcification. No mediastinal or hilar lymphadenopathy. No axillary lymphadenopathy. Prominent high LEFT axillary lymph node measuring 11 mm in short axis dimension is unchanged. Adrenal glands are normal. Cholecystectomy clips. Small esophageal hiatal hernia. Moderate thoracic k yphosis. Ankylosis thoracic spine. IMPRESSION: 1. Small RIGHT pleural effusion improved compared to previous. Persistent compressive atelectasis RI GHT lower lobe with air bronchograms. 2. Resolved patchy filtrates in the LEFT lower lobe and lingula. 3. No other significant changes compared to previous.
== END 2023-07-17 13:01 | disposition home or self-care (01) ==
PROVIDERS: PCP Emergency Medicine Emergency Medical Services; Visit Provider Internal Medicine Pulmonary Disease
DX: J90 Pleural effusion, not elsewhere classified (principal)
CPT/HCPCS: 71250

== ENCOUNTER 2023-07-22 08:46 | Outpatient (CLI) | payer OTHER, SELFPAY ==
--- NOTE | 2023-07-22 08:30 | FL_ITS ---
WS: [id number] Exam: FL barium swallow [id number] Date/Time of Exam: 07/22/2023 9:25 AM Reason For Exam: DYSPHAGIA Fluoroscopy time: 1min [id number] minutes # of spot films: Swallowing function at the level of the oropharynx was normal. No evidence of aspiration or penetrati on. There was moderate spasm of the esophagus. No sign of esophageal stricture or mass. No hiatal her roma or gastroesophageal reflux. The esophagus is not displaced. IMPRESSION: 1. Moderate esophageal spasm noted. 2. No indication of esophageal stricture or mass.
== END 2023-07-22 08:47 | disposition home or self-care (01) ==
PROVIDERS: PCP Emergency Medicine Emergency Medical Services; Visit Provider Internal Medicine Pulmonary Disease
DX: R13.10 Dysphagia, unspecified (principal); K22.4 Dyskinesia of esophagus
CPT/HCPCS: 74220

== ENCOUNTER 2023-07-29 09:22 | Oncology outpatient (recurring) (ONCR) | payer OTHER, SELFPAY ==
[2023-07-29 09:37] LABS: Basophils # 0.1 10^3/uL (0.0-0.1); Basophils % 0.5 %; Eosinophils # 0.2 10^3/uL (0.0-0.8); Eosinophils % 1.8 %; Hematocrit 41.3 % (37-53); Lymphocytes % 22.8 %; Mean Corpuscular HGB Conc 32.9 g/dL (30-55); Mean Corpuscular Hemoglobin 29.7 pg (27-33); Mean Corpuscular Volume 90.2 fl (82-101); Monocytes # 0.9 10^3/uL (0.2-0.9); Neutrophils # 8.97 10^3/uL (1.8-7.7); Neutrophils % 67.4 %; Nucleated Red Blood Cells % 0 %; Platelet Count 36 10^3/cmm (157-399); Red Blood Count 4.58 10^6/uL (3.85-5.65); Red Cell Distribution Width 14.9 % (12.1-15.1); White Blood Count 13.31 10^3/uL (3.29-11.43)
[2023-07-29 09:56] LABS: Alanine Aminotransferase 10 U/L (0-41); Alkaline Phosphatase 108 U/L (40-130); Anion Gap 13.4 (5-19); Aspartate Amino Transferase 16 U/L (0-40); Blood Urea Nitrogen 16 mg/dL (8-23); Calcium 9.1 mg/dL (8.5-10.5); Carbon Dioxide 26 mmol/L (22-29); Chloride 98 mmol/L (98-107); Globulin 4.8 g/dL (1.3-4.6); Glucose 290 mg/dL (65-115); Lactate Dehydrogenase 126 U/L (135-225); Osmolality Calculated 288 mOsm/kg (285-295); Potassium 4.4 mmol/L (3.5-5.1); Sodium 133 mmol/L (136-145); Total Bilirubin 0.5 mg/dL (0.15-1.2); Total Protein 8.8 g/dL (6.6-8.7)
[2023-07-29 10:12] LABS: Slide Review Slide Review Perform
[2023-07-29 12:36] LABS: Estmated Average Glucose 177; Hemoglobin A1C 7.8 % (4.0-6.0)
== END 2023-08-22 23:59 | disposition home or self-care (01) ==
PROVIDERS: Internal Medicine Medical Oncology; PCP Emergency Medicine Emergency Medical Services; Visit Provider Nurse Practitioner Family
DX: C85.80 Other specified types of non-Hodgkin lymphoma, unspecified site (principal); D69.3 Immune thrombocytopenic purpura; C85.90 Non-Hodgkin lymphoma, unspecified, unspecified site; E11.9 Type 2 diabetes mellitus without complications; D47.2 Monoclonal gammopathy; Z53.9 Procedure and treatment not carried out, unspecified reason
CPT/HCPCS: 36591; 80053; 83036; 83615; 85025; 99214

== ENCOUNTER → 2023-08-05 12:40 | Outpatient (BNVA) | payer OTHER, SELFPAY | PROVIDERS: PCP Emergency Medicine Emergency Medical Services; Referring Provider Emergency Medicine Emergency Medical Services; Visit Provider Internal Medicine | DX: D69.3 Immune thrombocytopenic purpura (principal); R06.02 Shortness of breath; R76.8 Other specified abnormal immunological findings in serum | CPT/HCPCS: 36415; 81003; 82955; 83516; 85651; 86140; 86160; 86162; 86200; 86235; 86255; 86376; 86431; 86704; 86803; 87340; 99204 ==

== ENCOUNTER → 2023-08-10 08:10 | Outpatient (BNVA) | payer OTHER, SELFPAY | PROVIDERS: PCP Emergency Medicine Emergency Medical Services; Visit Provider Podiatrist Foot & Ankle Surgery | DX: B35.1 Tinea unguium (principal); E11.42 Type 2 diabetes mellitus with diabetic polyneuropathy; E11.51 Type 2 diabetes mellitus with diabetic peripheral angiopathy without gangrene; Z79.4 Long term (current) use of insulin | CPT/HCPCS: 11721 ==

== ENCOUNTER → 2023-08-26 14:10 | Outpatient (BNVA) | payer OTHER, SELFPAY | PROVIDERS: PCP Emergency Medicine Emergency Medical Services; Visit Provider Internal Medicine | DX: D69.3 Immune thrombocytopenic purpura (principal); R06.02 Shortness of breath; R76.8 Other specified abnormal immunological findings in serum; M54.9 Dorsalgia, unspecified; G89.29 Other chronic pain; R70.0 Elevated erythrocyte sedimentation rate | CPT/HCPCS: 99214 ==

== ENCOUNTER 2023-12-02 10:30 | Oncology outpatient (recurring) (ONCR) | payer OTHER, SELFPAY ==
[2023-12-02 10:34] VITALS: BP 135/70; PULSE 70; RESP 16; TEMP 36.5
[2023-12-02 11:02] LABS: Basophils # 0.1 10^3/uL (0.0-0.1); Basophils % 0.6 %; Eosinophils # 0.5 10^3/uL (0.0-0.8); Eosinophils % 3.4 %; Hematocrit 37.5 % (37-53); Lymphocytes # 3.9 10^3/uL (0.8-4.8); Lymphocytes % 27.3 %; Mean Corpuscular HGB Conc 32.3 g/dL (30-55); Mean Corpuscular Hemoglobin 29.3 pg (27-33); Mean Corpuscular Volume 90.8 fl (82-101); Monocytes # 1.1 10^3/uL (0.2-0.9); Monocytes % 7.5 %; Neutrophils % 60.6 %; Nucleated Red Blood Cells % 0 %; Platelet Count 37 10^3/cmm (157-399); Red Blood Count 4.13 10^6/uL (3.85-5.65); Red Cell Distribution Width 14.7 % (12.1-15.1)
[2023-12-02 11:05] LABS: Slide Review Slide Review Perform
[2023-12-02 11:13] LABS: Alanine Aminotransferase 9 U/L (0-41); Albumin Level 3.4 g/dL (3.5-5.2); Alkaline Phosphatase 125 U/L (40-130); Anion Gap 13.8 (5-19); Aspartate Amino Transferase 12 U/L (0-40); Blood Urea Nitrogen 14 mg/dL (8-23); Calcium 9.5 mg/dL (8.5-10.5); Carbon Dioxide 26 mmol/L (22-29); Chloride 98 mmol/L (98-107); Glucose 378 mg/dL (65-115); Lactate Dehydrogenase 110 U/L (135-225); Osmolality Calculated 292 mOsm/kg (285-295); Potassium 4.8 mmol/L (3.5-5.1); Sodium 133 mmol/L (136-145); Total Bilirubin 0.3 mg/dL (0.15-1.2); Total Protein 8.4 g/dL (6.6-8.7)
[2023-12-03 12:24] LABS: PROTEIN, TOTAL 8.2 g/dL (6.1-8.1)
[2023-12-07 17:50] LABS: ABNORMAL PROTEIN BAND 1 1.5 g/dL (NONE DETECTED); ALBUMIN 3.2 g/dL (3.8-4.8); ALPHA 1 GLOBULIN 0.4 g/dL (0.2-0.3); BETA 1 GLOBULIN 0.4 g/dL (0.4-0.6); BETA 2 GLOBULIN 0.7 g/dL (0.2-0.5); GAMMA GLOBULIN 2.4 g/dL (0.8-1.7)
== END 2023-12-23 23:59 | disposition home or self-care (01) ==
PROVIDERS: Internal Medicine Medical Oncology; PCP Emergency Medicine Emergency Medical Services; Visit Provider Nurse Practitioner Family
DX: Z53.9 Procedure and treatment not carried out, unspecified reason (principal); C85.80 Other specified types of non-Hodgkin lymphoma, unspecified site; D69.3 Immune thrombocytopenic purpura; E11.9 Type 2 diabetes mellitus without complications; D47.2 Monoclonal gammopathy; R09.89 Other specified symptoms and signs involving the circulatory and respiratory systems; Z79.899 Other long term (current) drug therapy
CPT/HCPCS: 36415; 71046; 80053; 83615; 84155; 84165; 85025; 99214

== ENCOUNTER → 2024-01-07 12:46 | Outpatient (BNVA) | payer OTHER, SELFPAY | PROVIDERS: PCP Emergency Medicine Emergency Medical Services; Visit Provider Internal Medicine Pulmonary Disease | DX: R06.02 Shortness of breath (principal); J82.83 Eosinophilic asthma; R09.02 Hypoxemia | CPT/HCPCS: 99214 ==

== ENCOUNTER 2024-01-19 07:51 | Outpatient (CLI) | payer OTHER, SELFPAY ==
--- NOTE | 2024-01-19 07:59 | PETR_ITS ---
PROCEDURE INFORMATION: Exam: PET/CT Skull Base to Mid-thigh Exam date and time: 01/19/2024 8:54 AM Age: 83 years old Clinical indication: Condition or disease; Primary cancer: Non hodgkin lymphoma; Follow-up oncological assessment; Additional info: [facility] LABS AND CLINICAL REPORTS: Glucose: 136 mg/dl Treatment strategy for malignancy (PET staging): Restaging (PS) TECHNIQUE: Imaging protocol: Following at least four-hour fasting and following the injection of radiopharmaceutical, low dose CT images were obtained. Then, PET images were obtained. Attenuation corrected images were constructed using the CT scan. Fused images of PET and CT were reviewed. The standardized uptake values (SUV) reported below are maximum values within a region of interest, expressed in gm/ml. Exam includes orbital meatal line to mid-thigh. Radiopharmaceutical: 12.88 mCi F-18 FDG (Fluorodeoxyglucose), IV. Time of imaging post radiopharmaceutical administration: 1 hour Injection site: Right antecubital COMPARISON: CT chest 07/17/2023, CT chest 04/17/2023, MRI face/neck/orbits 03/12/2022, PT PET Scan 11/30/2021 11:28 AM FINDINGS: Limitations: The examination is slightly technically suboptimal secondary to the scan to injection time outside of recommended parameters (45-75 minutes). Reported scan to injection time of 40 minutes. Injection to scan times outside of recommended parameters can result in decreased PET sensitivity and limit the utility of comparison of SUV values to prior or subsequent exams. Brain: Visualized brain has normal physiologic uptake. Pharynx: No abnormal uptake. Larynx: No abnormal uptake. Lungs, pleura and trachea: No abnormal uptake. Bandlike streaky density extending from the right hilar region to the posterior pleural surface of the right lower lobe with there is adjacent similar dependent patchy density is not radiotracer avid. The appearance is similar compared with 07/17/2023. A small right pleural effusion is decreased in size. Heart: Normal physiologic uptake. Mediastinal space: No abnormal uptake. Liver: No abnormal uptake. Gallbladder and bile ducts: No abnormal uptake. Pancreas: No abnormal uptake. Spleen: The spleen is absent. Adrenal glands: No abnormal uptake. Kidneys and ureters: Normal physiologic uptake. Stomach and bowel: No abnormal uptake. Reproductive: There is moderate prominence of the prostate gland without focal elevated uptake. Vasculature: No abnormal uptake. There are diffuse atherosclerotic changes including within the coronary arteries. Lymph nodes: Borderline prominence of cervical lymph nodes appears similar for example deep to the right sternocleidomastoid muscle on series 3, 27 measuring 1.1 x 0.8 cm, SUV max 1.7, and in the left submandibular region measuring 1 cm on series 3, image 36, SUV max 1.8. Similar in size mediastinal lymph nodes demonstrate decreased low-level activity. Examples: A right pretracheal 1.5 x 0.9 cm lymph node on series 3, image 72 is similar in size SUV max 2.3 (previously 2.8), and a partially calcified aortopulmonary window lymph node measures 1.7 x 1.0 cm on series 3, image 78, SUV max 2.5 (previously 3.1). Clustered mildly prominent subcarinal lymph nodes measuring 2.9 x 1.5 cm on series 3, image 82 demonstrated an SUV max 2.3 (previously 2.7). There is similar in size scattered mesenteric and retroperitoneal lymph nodes without elevated uptake or pathologic enlargement. An aortocaval lymph node is similar in size measuring 1.7 x 0.8 cm on series 3, image 172, SUV max 2.2 (previously 2.7). A proximal left common iliac chain lymph node measures 1.2 cm on series 3 image 176 similar to the prior exam, SUV max 1.6 (previously 1.4). There is similar mild prominence of bilateral external iliac chain lymph nodes without significant uptake for example on the right on series 3, image 208 measuring 2.9 x 1.0 cm, SUV max 1.5 (previously 1.0) and measuring 2.4 x 1.0 cm on the left on series 3, image 210, SUV max 1.5 (previously 1.1). A left inguinal lymph node is similar in size and measures 1.8 x 1.0 cm on series 3, image 234 with an SUV max 1.3 (previously 1.5). Bones/joints: No abnormal uptake in the visualized axial and appendicular skeleton. Degenerative changes in the spine are present. Soft tissues: No abnormal uptake. METRICS: Mediastinal blood pool: SUV max 2.0 Liver uptake: SUV max 3.1, SUV mean 2.5 PET/PET skulltothigh SUBSEQ [id number] IMPRESSION: 1. Similar size of lymph nodes in the neck, chest, abdomen and pelvis. The majority of these lymph nodes continue to demonstrate decreasing radiotracer activity which is less than mediastinal blood pool activity. There has been an interval decrease in mild uptake (slightly greater than mediastinal blood pool activity) within mediastinal lymph nodes and within an aortocaval lymph node. 2. Similar bandlike streaky density in the right lung associated with a decreasing small right pleural effusion without elevated uptake suggestive of scarring and/or atelectasis. 3. Additional nonurgent findings as detailed above. Deauville Scorin: No uptake 2: Uptake < or = mediastinal blood pool (max SUV) 3: Uptake > mediastinal blood pool (max SUV) but < or = liver (max SUV) 4: Uptake moderately higher than liver (uptake > maximum SUV of the liver) 5: Uptake markedly higher than liver (uptake 2-3x > maximum SUV of the liver) and/or new lesions
== END 2024-01-19 07:52 | disposition home or self-care (01) ==
LOC: RAD 07:52
PROVIDERS: PCP Emergency Medicine Emergency Medical Services; Visit Provider Nurse Practitioner Family
DX: C85.80 Other specified types of non-Hodgkin lymphoma, unspecified site (principal)
CPT/HCPCS: 78815; A9552

== ENCOUNTER 2024-02-24 11:13 | Oncology outpatient (recurring) (ONCR) | payer OTHER, SELFPAY ==
[2024-02-24 11:35] LABS: Basophils # 0.1 10^3/uL (0.0-0.1); Basophils % 0.8 %; Eosinophils # 0.4 10^3/uL (0.0-0.8); Eosinophils % 3.4 %; Hematocrit 41.4 % (37-53); Lymphocytes # 4.3 10^3/uL (0.8-4.8); Lymphocytes % 37.4 %; Mean Corpuscular HGB Conc 32.1 g/dL (30-55); Mean Corpuscular Hemoglobin 30.3 pg (27-33); Mean Corpuscular Volume 94.3 fl (82-101); Monocytes % 9.1 %; Neutrophils # 5.55 10^3/uL (1.8-7.7); Neutrophils % 48.9 %; Nucleated Red Blood Cells % 0 %; Red Blood Count 4.39 10^6/uL (3.85-5.65); Red Cell Distribution Width 14.6 % (12.1-15.1); White Blood Count 11.35 10^3/uL (3.29-11.43)
[2024-02-24 11:46] LABS: Alanine Aminotransferase 11 U/L (0-41); Albumin Level 3.8 g/dL (3.5-5.2); Alkaline Phosphatase 108 U/L (40-130); Anion Gap 13.5 (5-19); Aspartate Amino Transferase 16 U/L (0-40); Blood Urea Nitrogen 18 mg/dL (8-23); Calcium 9.5 mg/dL (8.5-10.5); Carbon Dioxide 25 mmol/L (22-29); Chloride 101 mmol/L (98-107); Globulin 4.8 g/dL (1.3-4.6); Glucose 205 mg/dL (65-115); Lactate Dehydrogenase 121 U/L (135-225); Osmolality Calculated 288 mOsm/kg (285-295); Potassium 4.5 mmol/L (3.5-5.1); Sodium 135 mmol/L (136-145); Total Bilirubin 0.4 mg/dL (0.15-1.2); Total Protein 8.6 g/dL (6.6-8.7)
[2024-02-24 12:44] LABS: Platelet Count 27 10^3/cmm (157-399)
[2024-02-24 12:45] LABS: Slide Review Slide Review Perform
[2024-02-24 14:43] LABS: Add Urine Microscopic? YES; Bacteria Urine TRACE /hpf; Bilirubin Urine Neg (Negative); Blood Urine 2+ (Negative); Glucose Urine UA 2+ (Normal); Ketones Urine Negative (Negative); Leukocyte Esterase Urine Negative (Negative); Nitrate Urine Negative (Negative); Protein Urine Trace (Negative); RBC Urine 0-4 /hpf (0-2); Squamous Epithelial Cell Urine 0-4 /hpf (0-5); Urine Appearance Clear (CLEAR); Urine Color Yellow (Yellow); Urobilinogen Urine Norm (Negative); pH Urine 5 (5-7)
[2024-02-24 14:44] LABS: Add Urine Culture? No
== END 2024-03-22 23:59 | disposition home or self-care (01) ==
PROVIDERS: Nurse Practitioner Family; PCP Emergency Medicine Emergency Medical Services; Visit Provider Nurse Practitioner Family
DX: Z53.9 Procedure and treatment not carried out, unspecified reason (principal); C85.80 Other specified types of non-Hodgkin lymphoma, unspecified site; D69.3 Immune thrombocytopenic purpura; E11.9 Type 2 diabetes mellitus without complications; D47.2 Monoclonal gammopathy; R09.89 Other specified symptoms and signs involving the circulatory and respiratory systems; Z79.899 Other long term (current) drug therapy
CPT/HCPCS: 36415; 80053; 81001; 83615; 85025; 99214

== ENCOUNTER → 2024-06-01 08:53 | Outpatient (CLI) | payer OTHER, SELFPAY ==
--- NOTE | 2024-06-01 08:58 | USCV_ITS ---
Sumit Abel Age: 83 Gender: M : 1940 Exam Date: 06/01/2024 09:21 Ordering Phys: Theresa Jorgensen APRN Technologist: CT Exam Location: [facility] [place] Indication: murmur BP: 151 / 62 HR: Rhythm: Sinus Technical Quality: Adequate MEASUREMENTS (Male / Female) Normal Values 2D ECHO LVOT Diameter 2.1 cm LV Ejection Fraction MOD 2C 66.2 % LV Ejection Fraction 2C AL 70.4 % LA Diameter 3.6 cm RA Systolic Volume 4C AL 36.2 ml RA Systolic Volume 4C MOD 34.9 ml LA Sys Volume AL 81.4 cm cubed LA Sys Volume Index AL 41.8 cm cubed/m squared Aorta at Sinotubular Diameter 2.7 cm IVC Diameter 1.6 cm M-MODE LA Ao Ratio MM 1.5 AV Cusp Separation MM 1.2 cm DOPPLER AV Peak Velocity 315.0 cm/s LVOT Peak Velocity 133.0 cm/s AV Area Cont Eq vti 1.6 cm squared AV Area Cont Eq pk 1.5 cm squared MV Peak Velocity 97.0 cm/s MV Area PHT 3.5 cm squared Mitral E to A Ratio 0.9 TR Peak Velocity 107.0 cm/s TR Peak Gradient 4.6 mmHg TV Peak E Velocity 66.0 cm/s Right Atrial Pressure 3.0 mmHg Pulmonary Artery Systolic Pressu 7.6 mmHg FINDINGS Left Ventricle Normal left ventricular size and systolic function, EF 66%. Mild concentric left trickle hypertrophy. No segmental wall motion abnormalities.Grade I/IV diastolic dysfunction (abnormal relaxation filling pattern), normal to mildly elevated filling pressures. Right Ventricle The right ventricle is normal in size and function. Right Atrium The right atrium is normal in size. Left Atrium Mildly increased left atrial size. Mitral Valve Mild mitral annular calcification. Aortic Valve Mild aortic valve stenosis, mean gradient 20 mmHg, YAA 1.6 cm squared. Peak velocity of 3. 1 5 m/s with a peak gradient of 40 mmHg and a mean gradient of 20 mmHg Tricuspid Valve No gross abnormalities noted Pulmonic Valve No gross abnormalities Pericardium No pericardial effusion. Aorta Normal aortic annulus size. IVC The inferior vena cava appears normal. CONCLUSIONS Mild aortic valve stenosis, mean gradient 20 mmHg, YAA 1.6 cm squared. Peak velocity of 3. 1 5 m/s with a peak gradient of 40 mmHg and a mean gradient of 20 mmHg. Normal left ventricular size and systolic function, EF 66%. Mild concentric left trickle hypertrophy. No segmental wall motion abnormalities.Grade I/IV diastolic dysfunction (abnormal relaxation filling pattern), normal to mildly elevated filling pressures. Mildly increased left atrial size. Mild mitral annular calcification. There is no pericardial effusion. There are no intracardiac masses. No similar previous studies are available for comparison Dr Fidel Ye MD [facility] (Electronically Signed) Final Date: 01 June 2024 20:03 S
== END | disposition home or self-care (01) ==
LOC: RAD 08:53
PROVIDERS: PCP Emergency Medicine Emergency Medical Services; Visit Provider Nurse Practitioner Family
DX: I50.30 Unspecified diastolic (congestive) heart failure (principal)
CPT/HCPCS: 93306

== ENCOUNTER 2024-06-09 10:06 | Oncology outpatient (recurring) (ONCR) | payer OTHER, SELFPAY ==
[2024-06-03 08:37] LABS: Basophils # 0.1 10^3/uL (0.0-0.1); Basophils % 0.6 %; Eosinophils # 0.6 10^3/uL (0.0-0.8); Eosinophils % 7.6 %; Hematocrit 36.8 % (37-53); Lymphocytes # 3.3 10^3/uL (0.8-4.8); Lymphocytes % 39.3 %; Mean Corpuscular HGB Conc 32.3 g/dL (30-55); Mean Corpuscular Hemoglobin 30.8 pg (27-33); Mean Corpuscular Volume 95.3 fl (82-101); Monocytes # 0.7 10^3/uL (0.2-0.9); Monocytes % 8.7 %; Neutrophils # 3.59 10^3/uL (1.8-7.7); Neutrophils % 43.3 %; Nucleated Red Blood Cells % 0 %; Platelet Count 40 10^3/cmm (157-399); Red Blood Count 3.86 10^6/uL (3.85-5.65); Red Cell Distribution Width 15.3 % (12.1-15.1); White Blood Count 8.28 10^3/uL (3.29-11.43)
[2024-06-03 08:52] LABS: Alanine Aminotransferase 15 U/L (0-41); Albumin Level 3.7 g/dL (3.5-5.2); Alkaline Phosphatase 106 U/L (40-130); Anion Gap 16.1 (5-19); Aspartate Amino Transferase 21 U/L (0-40); Blood Urea Nitrogen 24 mg/dL (8-23); Calcium 8.8 mg/dL (8.5-10.5); Carbon Dioxide 22 mmol/L (22-29); Chloride 106 mmol/L (98-107); Globulin 4.9 g/dL (1.3-4.6); Glucose 172 mg/dL (65-115); Osmolality Calculated 298 mOsm/kg (285-295); Potassium 4.1 mmol/L (3.5-5.1); Sodium 140 mmol/L (136-145); Total Bilirubin 0.3 mg/dL (0.15-1.2); Total Protein 8.6 g/dL (6.6-8.7)
[2024-06-03 09:25] LABS: Lactate Dehydrogenase 137 U/L (135-225)
== END 2024-06-22 23:59 | disposition home or self-care (01) ==
PROVIDERS: Nurse Practitioner Family; PCP Emergency Medicine Emergency Medical Services; Visit Provider Nurse Practitioner Family
DX: C85.80 Other specified types of non-Hodgkin lymphoma, unspecified site (principal); D69.3 Immune thrombocytopenic purpura
CPT/HCPCS: 36415; 80053; 82274; 83615; 85025; 99214

== ENCOUNTER → 2024-08-10 08:09 | Outpatient (BNVA) | payer OTHER, SELFPAY | PROVIDERS: PCP Emergency Medicine Emergency Medical Services; Visit Provider Surgery | DX: D69.3 Immune thrombocytopenic purpura (principal); C85.90 Non-Hodgkin lymphoma, unspecified, unspecified site; K92.2 Gastrointestinal hemorrhage, unspecified | CPT/HCPCS: 99204 ==

== ENCOUNTER 2024-09-09 08:50 | Oncology outpatient (recurring) (ONCR) | payer OTHER, SELFPAY ==
[2024-09-09 09:29] LABS: Basophils # 0.1 10^3/uL (0.0-0.1); Basophils % 0.8 %; Eosinophils # 0.7 10^3/uL (0.0-0.8); Eosinophils % 7.9 %; Hematocrit 39.9 % (37-53); Lymphocytes # 3.5 10^3/uL (0.8-4.8); Mean Corpuscular HGB Conc 32.8 g/dL (30-55); Mean Corpuscular Hemoglobin 32.2 pg (27-33); Monocytes # 0.7 10^3/uL (0.2-0.9); Monocytes % 8.9 %; Neutrophils # 3.32 10^3/uL (1.8-7.7); Neutrophils % 39.8 %; Nucleated Red Blood Cells % 0 %; Platelet Count 37 10^3/cmm (157-399); Red Blood Count 4.07 10^6/uL (3.85-5.65); Red Cell Distribution Width 14.2 % (12.1-15.1); White Blood Count 8.35 10^3/uL (3.29-11.43)
[2024-09-09 09:51] LABS: Alanine Aminotransferase 12 U/L (0-41); Alkaline Phosphatase 92 U/L (40-130); Anion Gap 13.3 (5-19); Aspartate Amino Transferase 22 U/L (0-40); Blood Urea Nitrogen 22 mg/dL (8-23); Carbon Dioxide 25 mmol/L (22-29); Chloride 107 mmol/L (98-107); Creatinine Clr Calc Pharmacy 41.0645; Globulin 4.7 g/dL (1.3-4.6); Glucose 144 mg/dL (65-115); Osmolality Calculated 298 mOsm/kg (285-295); Potassium 4.3 mmol/L (3.5-5.1); Sodium 141 mmol/L (136-145); Total Bilirubin 0.4 mg/dL (0.15-1.2); Total Protein 8.7 g/dL (6.6-8.7)
[2024-09-09 09:56] LABS: Lactate Dehydrogenase 146 U/L (135-225)
== END 2024-09-22 23:59 | disposition home or self-care (01) ==
PROVIDERS: Nurse Practitioner Family; PCP Emergency Medicine Emergency Medical Services; Visit Provider Nurse Practitioner Family
DX: D69.3 Immune thrombocytopenic purpura; Z79.899 Other long term (current) drug therapy; C85.80 Other specified types of non-Hodgkin lymphoma, unspecified site; L82.1 Other seborrheic keratosis; Z87.891 Personal history of nicotine dependence
CPT/HCPCS: 36415; 80053; 83615; 85025; 99214

== ENCOUNTER → 2025-07-10 09:16 | Outpatient (BNVA) | payer OTHER, SELFPAY | PROVIDERS: PCP Emergency Medicine Emergency Medical Services; Visit Provider Nurse Practitioner Family | DX: D48.5 Neoplasm of uncertain behavior of skin (principal); D22.39 Melanocytic nevi of other parts of face; Q82.5 Congenital non-neoplastic nevus; L82.1 Other seborrheic keratosis; L57.8 Other skin changes due to chronic exposure to nonionizing radiation; X32.XXXA Exposure to sunlight, initial encounter; L57.0 Actinic keratosis | CPT/HCPCS: 11102; 17000; 99203 ==

== ENCOUNTER → 2025-08-08 09:56 | Outpatient (BNVA) | payer OTHER, SELFPAY | PROVIDERS: PCP Emergency Medicine Emergency Medical Services; Visit Provider Dermatology | DX: C44.329 Squamous cell carcinoma of skin of other parts of face (principal); L44.8 Other specified papulosquamous disorders; L82.1 Other seborrheic keratosis; L57.0 Actinic keratosis | CPT/HCPCS: 17000; 99214 ==

== ENCOUNTER 2025-08-16 07:10 | Outpatient (CLI) | payer OTHER, SELFPAY ==
--- NOTE | 2025-08-16 07:17 | CT_ITS ---
WS: [id number] CT NECK TECHNIQUE: Noncontrast CT of the neck with coronal and sagittal reformatted images. 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 FINDINGS: Diffuse slightly enlarged cervical lymph nodes throughout both cervical chains extending into the thoracic inlet. These are similar to the prior PET/CT and demonstrated low-grade activity at that time. Some of these measure slightly larger today by a few millimeters. Recommend continued surveillance with PET/CT. These remain technically indeterminant. Normal parotid glands. Atrophic submandibular glands. Vascular calcification. No evidence of supraglottic or glottic mass. Normal subglottic airway. Aortic calcification. Lung apices are well aerated. Moderate spondylitic changes cervical spine. Straightening of the normal cervical lordosis. Carotid bulb calcification. CT/CT neck wo con [id number] IMPRESSION: 1. Diffuse mild enlargement of the level 1 through 4 cervical chain lymph node s extending to the thoracic inlet measuring 9-10 mm in short axis dimension. Th jarek are similar in appearance to the prior PET/CT in 2023 and technically indet erminate. Some of these appear slightly progressed in size by a few millimeters . Recommend continued surveillance with PET/CT to assess uptake 2. No other suspicious findings.
--- NOTE | 2025-08-16 07:17 | CT_ITS ---
WS: [id number] CT HEAD TECHNIQUE: Noncontrast CT of the head obtained from the skullbase to the vertex. 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 DLP: 1419.[address] scans at [facility] use at least one of these dose optimization techniques: automated exposure control; mA and/or kV adjustment per patient size (includes targeted exams where dose is matched to clinical indication); or iterative reconstruction. FINDINGS: No evidence of intracranial hemorrhage or mass effect. Ventricular system and basal cisterns are patent. Mild small vessel changes with moderate parenchymal volume loss. No extra-axial fluid collections. No evidence of mass or mass effect. Chronic lacunar infarct LEFT caudate. Vascular calcification. Benign basal ganglia calcifications. Paranasal sinuses and mastoid air cells are well aerated. CT/CT head wo con* [id number] IMPRESSION: 1. No evidence of intracranial hemorrhage or mass effect. 2. Mild small vessel changes. Moderate parenchymal volume loss. 3. Chronic appearing infarct LEFT caudate. 4. Vascular calcification. 5. No other suspicious findings
== END 2025-08-16 07:11 | disposition home or self-care (01) ==
LOC: RAD 07:11
PROVIDERS: PCP Emergency Medicine Emergency Medical Services; Visit Provider Dermatology
DX: C44.92 Squamous cell carcinoma of skin, unspecified (principal); K11.0 Atrophy of salivary gland; I77.9 Disorder of arteries and arterioles, unspecified; R59.9 Enlarged lymph nodes, unspecified; G93.89 Other specified disorders of brain; I67.82 Cerebral ischemia; I63.81 Other cerebral infarction due to occlusion or stenosis of small artery
CPT/HCPCS: 70450; 70490

== ENCOUNTER 2025-09-08 12:51 | Outpatient (CLI) | payer OTHER, SELFPAY ==
--- NOTE | 2025-09-08 10:38 | PETR_ITS ---
PROCEDURE INFORMATION: Exam: PET/CT Whole Body Exam date and time: 09/08/2025 2:24 PM Age: 84 years old Clinical indication: Symptoms: Localized enlarged lymph nodes; HX of non hodgkin lymphoma LABS AND CLINICAL REPORTS: Glucose: 71 mg/dl Treatment strategy for malignancy (PET staging): Initial Staging (PI) TECHNIQUE: Imaging protocol: Following at least four-hour fasting and following the injection of radiopharmaceutical, low dose CT images were obtained. Then, PET images were obtained. Attenuation corrected images were constructed using the CT scan. Fused images of PET and CT were reviewed. The standardized uptake values (SUV) reported below are maximum values within a region of interest, expressed in gm/ml. Exam includes the whole body. SUV normalization method: BodyWeight Radiopharmaceutical: 11.43 mCi F-18 FDG (Fluorodeoxyglucose), IV. Time of imaging post radiopharmaceutical administration: 46 minutes Injection site: right forearm COMPARISON: CT head CT neck 08/16/2025, PT PET skulltothigh SUBSEQ [id number] 01/19/2024 8:54 AM FINDINGS: Brain: Visualized brain has normal physiologic uptake. Pharynx: No abnormal uptake. Larynx: No abnormal uptake. Lungs, pleura and trachea: No abnormal uptake. Dependent streaky density in the right lower lobe is compatible with atelectasis or scarring. There is a trace right pleural effusion. Calcified granulomas versus calcified pleural plaque is noted in the inferior right lower lobe posteriorly. Heart: Normal physiologic uptake. Mediastinal space: No abnormal uptake. Liver: No abnormal uptake. Gallbladder and biliary ducts: No abnormal uptake. Cholecystectomy clips are present. Pancreas: No abnormal uptake. Spleen: The spleen is surgically absent. Adrenal glands: No abnormal uptake. Kidneys and ureters: Normal physiologic uptake. Stomach and bowel: No abnormal uptake. Reproductive: There is moderate enlargement of the prostate gland without focal abnormal uptake. Vasculature: No abnormal uptake. Multifocal regions of atherosclerotic calcification are present, including within the coronary arteries. Lymph nodes: A right level 2 lymph node demonstrates an SUV max 4.2 (previously 1.7) on PET image 71 measuring 0.8 cm in short axis on CT image 536, and a more inferiorly located lymph node in the subcutaneous fat of the right neck measuring 9 mm in short axis on series 202, image 526 demonstrates new uptake with an SUV max 3.4. These lymph nodes are similar in size. A 1.1 cm left-sided level [address] image 527 demonstrates an SUV max 2.8 (previously 1.8). A similar in size right supraclavicular lymph node demonstrates new uptake with an SUV max 9.4 measuring [address] image 513. A similar in size precarinal lymph node measuring 1.1 cm in short axis on CT series 202, image 487 demonstrates an SUV max 7.7 (previously 2.3). Uptake within the right axillary region is noted, SUV max 5.0 on PET series 301, image 123 with no corresponding lymph node on the CT images, likely representing physiologic uptake within vessels in this location. A right external iliac chain lymph node measuring 1.2 cm (previously 1.1 cm) in short axis on CT image 344 is radiotracer avid, SUV max 4.9 (previously 1.3). Skeleton: Uptake along the anterior left glenohumeral joint capsule is likely inflammatory. Degenerative changes throughout the spine are noted. Soft tissues: Nodular skin thickening in the right cheek region slightly inferior to the zygomatic process is new compared to the prior PET-CT in an area measuring 2.6 x [address] series 202, image 544, SUV max 10.5. Elevated uptake in the region of the umbilicus is noted with mild skin thickening, SUV max 6.3 on PET series 301, image 244. Benign-appearing left erector spinae muscle uptake is noted in the region of the lumbar spine, likely physiologic or inflammatory. Moderate atrophy of the left calf musculature is noted, particularly involving the medial head of the gastrocnemius muscle and soleus muscle. METRICS: Mediastinal blood pool: SUV max 2.1, SUV mean 1.7 Liver uptake: SUV max 2.2, SUV mean 1.9 PET/PET WB melanoma SUBSEQ [id number] IMPRESSION: 1. Radiotracer avid nodularity of the right cheek region is new since the prior PET-CT concerning for malignancy. 2. Increased or new radiotracer uptake within lymph nodes in the neck, chest and pelvis compared to the prior PET-CT, concerning for malignancy. Deauville score: 5 3. Trace right pleural effusion. 4. Additional nonurgent findings as detailed above.
== END 2025-09-08 12:52 | disposition home or self-care (01) ==
LOC: RAD 12:52
PROVIDERS: PCP Emergency Medicine Emergency Medical Services; Visit Provider Dermatology
DX: R59.0 Localized enlarged lymph nodes (principal); Z90.49 Acquired absence of other specified parts of digestive tract; J84.10 Pulmonary fibrosis, unspecified; Z90.81 Acquired absence of spleen; N40.0 Benign prostatic hyperplasia without lower urinary tract symptoms; I25.84 Coronary atherosclerosis due to calcified coronary lesion; R59.1 Generalized enlarged lymph nodes; R93.7 Abnormal findings on diagnostic imaging of other parts of musculoskeletal system; M79.89 Other specified soft tissue disorders; J90 Pleural effusion, not elsewhere classified; J98.4 Other disorders of lung
CPT/HCPCS: 78816; A9552

== ENCOUNTER 2025-09-28 09:00 | Oncology outpatient (recurring) (ONCR) | payer OTHER, SELFPAY ==
[2025-09-28 10:05] LABS: Hematocrit 39.7 % (37-53); Hemoglobin 13.10 g/dL (11.27-16.99); Mean Corpuscular HGB Conc 33.0 g/dL (30-55); Mean Corpuscular Hemoglobin 30.1 pg (27-33); Mean Corpuscular Volume 91.3 fl (82-101); Nucleated Red Blood Cells % 0 %; Red Blood Count 4.35 10^6/uL (3.85-5.65); White Blood Count 10.01 10^3/uL (3.29-11.43)
[2025-09-28 10:24] LABS: Alanine Aminotransferase 7 U/L (0-41); Albumin Level 3.6 g/dL (3.5-5.2); Alkaline Phosphatase 132 U/L (40-130); Anion Gap 16.6 (5-19); Aspartate Amino Transferase 15 U/L (0-40); Blood Urea Nitrogen 14 mg/dL (8-23); Calcium 9.2 mg/dL (8.5-10.5); Carbon Dioxide 23 mmol/L (22-29); Chloride 98 mmol/L (98-107); Ferritin 215 ng/mL (30-400); Globulin 5.1 g/dL (1.3-4.6); Glucose 324 mg/dL (65-115); Iron 39 ug/dL (59-158); Osmolality Calculated 289 mOsm/kg (285-295); Potassium 4.6 mmol/L (3.5-5.1); Sodium 133 mmol/L (136-145); Total Iron Binding Capacity 223 mcg/dl; Total Protein 8.7 g/dL (6.6-8.7); Unsaturated Iron Binding 184 ug/dL (112-347)
[2025-09-28 10:31] LABS: Platelet Count 25 10^3/cmm (157-399); Slide Review Slide Review Perform
== END 2025-10-22 23:59 | disposition home or self-care (01) ==
PROVIDERS: PCP Emergency Medicine Emergency Medical Services; Visit Provider Internal Medicine
DX: C44.319 Basal cell carcinoma of skin of other parts of face (principal); Z85.72 Personal history of non-Hodgkin lymphomas; D69.6 Thrombocytopenia, unspecified; R41.3 Other amnesia; H91.90 Unspecified hearing loss, unspecified ear; D69.3 Immune thrombocytopenic purpura
CPT/HCPCS: 36415; 80053; 82728; 82746; 83010; 83540; 83550; 85025; 86334; 99213

== ENCOUNTER 2025-11-15 09:00 | Oncology outpatient (recurring) (ONCR) | payer OTHER, SELFPAY ==
[2025-11-02 11:20] LABS: Vitamin B12 580 pg/mL (232-1245)
[2025-11-02 12:46] LABS: Hematocrit 42.4 % (37-53); Hemoglobin 13.80 g/dL (11.27-16.99); Mean Corpuscular HGB Conc 32.5 g/dL (30-55); Mean Corpuscular Hemoglobin 30.3 pg (27-33); Mean Corpuscular Volume 93.2 fl (82-101); Nucleated Red Blood Cells % 0 %; Red Blood Count 4.55 10^6/uL (3.85-5.65); White Blood Count 9.80 10^3/uL (3.29-11.43)
[2025-11-02 13:30] LABS: Platelet Count 24 10^3/cmm (157-399)
[2025-11-02 13:31] LABS: Alanine Aminotransferase 6 U/L (0-41); Albumin Level 3.5 g/dL (3.5-5.2); Alkaline Phosphatase 123 U/L (40-130); Anion Gap 17.6 (5-19); Aspartate Amino Transferase 14 U/L (0-40); Blood Urea Nitrogen 13 mg/dL (8-23); Calcium 9.3 mg/dL (8.5-10.5); Carbon Dioxide 23 mmol/L (22-29); Chloride 98 mmol/L (98-107); Ferritin 179 ng/mL (30-400); Globulin 4.7 g/dL (1.3-4.6); Glucose 375 mg/dL (65-115); Iron 47 ug/dL (59-158); Osmolality Calculated 293 mOsm/kg (285-295); Potassium 4.6 mmol/L (3.5-5.1); Sodium 134 mmol/L (136-145); Total Iron Binding Capacity 222 mcg/dl; Total Protein 8.2 g/dL (6.6-8.7); Unsaturated Iron Binding 175 ug/dL (112-347)
[2025-11-03 08:14] LABS: PROTEIN, TOTAL 8.0 g/dL (6.1-8.1)
[2025-11-03 19:20] LABS: ALPHA 1 GLOBULIN 0.3 g/dL (0.2-0.3); ALPHA 2 GLOBULIN 0.7 g/dL (0.5-0.9); BETA 1 GLOBULIN 0.4 g/dL (0.4-0.6); BETA 2 GLOBULIN 0.6 g/dL (0.2-0.5)
--- NOTE | 2025-11-07 07:15 | US_ITS ---
WS: [id number] Complete ABDOMINAL ULTRASOUND HISTORY: low platelet count COMPARISON: None available. Liver: 13.1 cm in length. Normal size liver and echogenicity. No bile duct dilatation or mass. Portal Vein: Normal hepatopetal flow with monophasic waveform. Gallbladder: Surgically removed. CBD: 0.4 cm Pancreas: Poorly visualized. Right kidney: 9.7 cm x 4.9 x 5.4 cm. Cortex:1.0 cm. Normal size kidney. Too small to characterize cortical hypodensities. No obstruction. Left kidney: 8.6 cm x 5.0 cm x 4.1 cm. Cortex: 1.0 cm. Normal size kidney. Too small to characterize cortical hypodensities. No obstruction. Spleen: Surgically removed. Aorta and IVC: Unremarkable abdominal aorta and IVC. US/US abdomen complete* [id number] Impression: 1. Status post cholecystectomy. 2. Status post splenectomy. 3. Negative gallbladder. 4. No ascites. 5. No renal obstruction.
--- NOTE | 2025-11-07 07:41 | XRR_ITS ---
PROCEDURE INFORMATION: Exam: XR Chest Exam date and time: 11/07/2025 7:52 AM Age: 85 years old Clinical indication: Abnormal findings; Abnormal diagnostic tests; Other: Low platelet count; HX of non hodgkin lymphoma TECHNIQUE: Imaging protocol: Radiologic exam of the chest. Views: 2 views. COMPARISON: CR XR chest 2V* [id number] 12/02/2023 2:01 PM FINDINGS: Lungs: In the lungs, there is no focal pneumonia. There is evidence of old granulomatous disease. Pleural spaces: Unremarkable. No pleural effusion. No pneumothorax. Heart/Mediastinum: Unremarkable. No cardiomegaly. Bones/joints: Stable degenerative changes present within the spine. XR/XR chest 2V* [id number] IMPRESSION: No acute findings.
[2025-11-07 08:24] LABS: Hematocrit 43.3 % (37-53); Hemoglobin 14.10 g/dL (11.27-16.99); Mean Corpuscular HGB Conc 32.6 g/dL (30-55); Mean Corpuscular Hemoglobin 30.0 pg (27-33); Mean Corpuscular Volume 92.1 fl (82-101); Nucleated Red Blood Cells % 0 %; Red Blood Count 4.70 10^6/uL (3.85-5.65); White Blood Count 10.33 10^3/uL (3.29-11.43)
[2025-11-07 08:45] LABS: Alanine Aminotransferase 10 U/L (0-41); Albumin Level 3.8 g/dL (3.5-5.2); Alkaline Phosphatase 118 U/L (40-130); Anion Gap 11.7 (5-19); Aspartate Amino Transferase 18 U/L (0-40); Blood Urea Nitrogen 18 mg/dL (8-23); Calcium 9.2 mg/dL (8.5-10.5); Carbon Dioxide 30 mmol/L (22-29); Chloride 98 mmol/L (98-107); Globulin 4.4 g/dL (1.3-4.6); Glucose 275 mg/dL (65-115); Osmolality Calculated 292 mOsm/kg (285-295); Potassium 4.7 mmol/L (3.5-5.1); Sodium 135 mmol/L (136-145); Total Protein 8.2 g/dL (6.6-8.7)
[2025-11-07 09:06] LABS: Platelet Count 20 10^3/cmm (157-399); Slide Review Slide Review Perform
[2025-11-15 09:36] LABS: Hematocrit 38.4 % (37-53); Hemoglobin 12.30 g/dL (11.27-16.99); Mean Corpuscular HGB Conc 32.0 g/dL (30-55); Mean Corpuscular Hemoglobin 30.3 pg (27-33); Mean Corpuscular Volume 94.6 fl (82-101); Nucleated Red Blood Cells % 0 %; Red Blood Count 4.06 10^6/uL (3.85-5.65); White Blood Count 11.86 10^3/uL (3.29-11.43)
[2025-11-15 09:48] LABS: Alanine Aminotransferase 7 U/L (0-41); Albumin Level 3.3 g/dL (3.5-5.2); Alkaline Phosphatase 125 U/L (40-130); Anion Gap 13.1 (5-19); Aspartate Amino Transferase 12 U/L (0-40); Blood Urea Nitrogen 11 mg/dL (8-23); Calcium 8.8 mg/dL (8.5-10.5); Carbon Dioxide 26 mmol/L (22-29); Chloride 97 mmol/L (98-107); Globulin 3.7 g/dL (1.3-4.6); Glucose 395 mg/dL (65-115); Osmolality Calculated 290 mOsm/kg (285-295); Potassium 4.1 mmol/L (3.5-5.1); Sodium 132 mmol/L (136-145); Total Protein 7.0 g/dL (6.6-8.7)
[2025-11-15 09:58] LABS: Platelet Count 22 10^3/cmm (157-399); Slide Review Slide Review Perform
== END 2025-11-22 23:59 | disposition home or self-care (01) ==
PROVIDERS: PCP Family Medicine Geriatric Medicine; Visit Provider Internal Medicine
DX: C44.329 Squamous cell carcinoma of skin of other parts of face (principal); D69.3 Immune thrombocytopenic purpura; F03.90 Unspecified dementia, unspecified severity, without behavioral disturbance, psychotic disturbance, mood disturbance, and anxiety; Z79.52 Long term (current) use of systemic steroids; Z87.891 Personal history of nicotine dependence; Z85.72 Personal history of non-Hodgkin lymphomas
CPT/HCPCS: 36415; 71046; 76700; 80053; 82607; 82728; 82746; 82784; 83010; 83540; 83550; 83615; 84155; 84165; 85025; 85045; 99213